=== PATIENT | male | born 1935 | race Caucasian/White ===

== ENCOUNTER 2019-02-12 04:57 | Inpatient (IN) | payer MEDICARE, OTHER, MEDICAID ==
[2019-02-12 05:29] LABS: ADD MAN DIFF? NO
[2019-02-12 05:31] LABS: WHITE BLOOD COUNT 8.2 10^3/ul (4.8-10.8)
[2019-02-12 05:31] LABS: BASOPHILS % 0.4 % (0.0-2.0); EOSINOPHILS # 0.1 10^3/ul (0.0-0.5); EOSINOPHILS % 1.1 % (0.0-7.0); HEMOGLOBIN 10.9 g/dl (14.0-18.0); LYMPHOCYTES # 1.4 10^3/ul (0.8-2.9); LYMPHOCYTES % 17.3 % (15.0-51.0); MEAN CORPUSCULAR HEMOGLOBIN 31.1 pg (29.0-33.0); MEAN CORPUSCULAR HGB CONC 32.1 g/dl (32.0-37.0); MEAN CORPUSCULAR VOLUME 97.1 fl (82.0-101.0); MEAN PLATELET VOLUME 10.3 fl (7.4-10.4); MONOCYTE # 0.9 10^3/ul (0.3-0.9); MONOCYTES % 11.4 % (0.0-11.0); NEUTROPHIL # 5.7 10^3/ul (1.6-7.5); NEUTROPHILS % 69.4 % (39.0-77.0); PLATELET COUNT 196 10^3/UL (140-415); RED CELL DISTRIBUTION WIDTH 13.2 % (11.5-14.5)
[2019-02-12 05:41] LABS: URINE BLOOD (Dip) POC 2+ (NEGATIVE); URINE GLUCOSE (Dip) POC Negative (NEGATIVE); URINE KETONES (Dip) POC Negative (NEGATIVE); URINE LEUKOCYTE EST (Dip) POC 1+ (NEGATIVE); URINE NITRITE (Dip) POC Negative (NEGATIVE); URINE TOTAL PROTEIN POC Negative (NEGATIVE)
[2019-02-12] MEDS: FUROSEMIDE 40 MG INJ IV (05:44)
[2019-02-12 05:50] LABS: INR 1.32; PROTIME 16.5 Sec (11.9-14.9); PT RATIO 1.3
[2019-02-12] MEDS: ALBUTEROL 0.083% (NEB) 2.5 MG/3 ML AMP INH (05:55)
[2019-02-12] MEDS: IPRATROPIUM (NEB) 0.5 MG/2.5 ML AMP INH (05:56)
[2019-02-12 05:57] LABS: ALANINE AMINOTRANSFERASE 32 IU/L (13-69); ALBUMIN/GLOBULIN RATIO 1.33; ALKALINE PHOSPHATASE 69 IU/L (42-121); ANION GAP 9 (5-13); ASPARTATE AMINO TRANSFERASE 33 IU/L (15-46); BILIRUBIN,INDIRECT 0.4 mg/dl (0-1.1); BILIRUBIN,TOTAL 0.4 mg/dl (0.2-1.3); BLOOD UREA NITROGEN 32 mg/dl (7-20); CALCIUM 8.6 mg/dl (8.4-10.2); CARBON DIOXIDE 24 mmol/L (21-31); CHLORIDE 105 mmol/L (97-110); CREATININE 2.14 mg/dl (0.61-1.24); GLUCOSE 108 mg/dl (70-220); POTASSIUM 4.5 mmol/L (3.5-5.1); SODIUM 138 mmol/L (135-144)
[2019-02-12] MEDS ORDERED: ACETAMINOPHEN 325 MG TAB PO ×2 (06:00→08:30)
[2019-02-12] MEDS ORDERED: NACL 0.9% 3 ML SYG IV (06:00)
[2019-02-12] MEDS: PANTOPRAZOLE (EC) 40 MG TAB PO (06:00)
[2019-02-12 06:09] LABS: B-TYPE NATRIURETIC PEPTIDE 1650 PG/ML (0-450); TROPONIN-I < 0.012 ng/ml (0.000-0.120)
[2019-02-12] MEDS: ALBUTEROL 0.083% (NEB) 2.5 MG/3 ML AMP HHN (07:31)
[2019-02-12] MEDS: ONDANSETRON 4 MG INJ IV (07:43)
[2019-02-12 08:01] LABS: LACTIC ACID 3.5 mmol/L (0.5-2.0)
[2019-02-12] MEDS ORDERED: ACETAMINOPHEN 650 MG SUPP PR (08:29)
[2019-02-12] MEDS ORDERED: ACETAMINOPHEN 325 MG SUPP PR (08:29)
[2019-02-12] MEDS: ACETAMINOPHEN 650 MG SUPP PR (08:40)
[2019-02-12] MEDS: ACETAMINOPHEN 325 MG SUPP PR (08:40)
[2019-02-12] MEDS: CEFTRIAXONE 1 GM/50 ML (PMX) 50 ML IVPB (08:51)
[2019-02-12] MEDS: AZITHROMYCIN 500MG/NS (PMX) 250 ML IVPB (09:03)
[2019-02-12] MEDS: ALBUTEROL/IPRATROPIUM (NEB) 3 ML AMP HHN ×4 (09:13→19:56)
[2019-02-12 11:33] LABS: LACTIC ACID 4.2 mmol/L (0.5-2.0)
[2019-02-12] MEDS: SOD CHLORIDE 0.9% 1,000 ML IV ×2 (12:06→21:29)
[2019-02-12] MEDS: APIXABAN 5 MG TABLET PO ×2 (12:12→21:29)
[2019-02-12] MEDS: AMIODARONE 200 MG TAB PO (12:12)
[2019-02-12] MEDS: CEFEPIME 2GM/50 ML (PMX) 50 ML IVPB (13:18)
[2019-02-12] MEDS: METHYLPREDNISOLONE 125 MG INJ IV ×2 (13:18→21:29)
[2019-02-12] MEDS: ALPRAZOLAM 0.5 MG TAB PO (21:29)
[2019-02-13] MEDS: ALBUTEROL/IPRATROPIUM (NEB) 3 ML AMP HHN ×7 (01:03→23:15)
[2019-02-13] MEDS: SOD CHLORIDE 0.9% 1,000 ML IV ×2 (02:00→11:15)
[2019-02-13] MEDS: PANTOPRAZOLE (EC) 40 MG TAB PO (05:08)
[2019-02-13] MEDS: METHYLPREDNISOLONE 125 MG INJ IV ×2 (05:09→14:12)
[2019-02-13 06:53] LABS: LACTIC ACID 2.1 mmol/L (0.5-2.0)
[2019-02-13 07:47] LABS: HEMOGLOBIN A1C 5.3 % (0-5.9)
[2019-02-13] MEDS: ESCITALOPRAM 10 MG TAB PO (08:51)
[2019-02-13] MEDS: AZITHROMYCIN 500MG/NS (PMX) 250 ML IVPB (08:51)
[2019-02-13] MEDS: APIXABAN 5 MG TABLET PO ×2 (08:52→21:36)
[2019-02-13] MEDS: AMIODARONE 200 MG TAB PO (08:52)
[2019-02-13] MEDS: CEFEPIME 2GM/50 ML (PMX) 50 ML IVPB (11:14)
[2019-02-13 15:54] LABS: WHITE BLOOD COUNT 18.9 10^3/ul (4.8-10.8)
[2019-02-13 15:54] LABS: ABNORMAL IP MESSAGE 1; HEMATOCRIT 34.4 % (42.0-52.0); HEMOGLOBIN 11.2 g/dl (14.0-18.0); MEAN CORPUSCULAR HEMOGLOBIN 31.6 pg (29.0-33.0); MEAN CORPUSCULAR HGB CONC 32.6 g/dl (32.0-37.0); MEAN CORPUSCULAR VOLUME 97.2 fl (82.0-101.0); MEAN PLATELET VOLUME 11.7 fl (7.4-10.4); PLATELET COUNT 184 10^3/UL (140-415); POSITIVE DIFF @See below; RED BLOOD COUNT 3.54 10^6/ul (4.70-6.10); RED CELL DISTRIBUTION WIDTH 13.9 % (11.5-14.5)
[2019-02-13 15:58] LABS: ADD MAN DIFF? YES
[2019-02-13 16:20] LABS: ANION GAP 11 (5-13); BLOOD UREA NITROGEN 43 mg/dl (7-20); CALCIUM 8.1 mg/dl (8.4-10.2); CARBON DIOXIDE 21 mmol/L (21-31); CHLORIDE 108 mmol/L (97-110); CREATININE 1.99 mg/dl (0.61-1.24); GLUCOSE 162 mg/dl (70-220); SODIUM 140 mmol/L (135-144)
[2019-02-13 17:52] LABS: BAND NEUTROPHILS #M 3.7 10^3/ul (0.0-0.6); BAND NEUTROPHILS % (M) 20 % (0-4); LYMPHOCYTES # 0.2 10^3/ul (0.8-2.9); LYMPHOCYTES #M 0.1 10^3/ul (0.8-2.9); LYMPHOCYTES % (M) 1 % (15-51); METAMYELOCYTES #M 0.1 10^3/ul (0.0-0.0); METAMYELOCYTES %M 1 % (0-0); MONOCYTE # 0.4 10^3/ul (0.3-0.9); MONOCYTE #M 0.3 10^3/ul (0.3-0.9); MONOCYTES % (M) 2 % (0-11); SEGMENTED NEUTROPHILS (M) % 76 % (39-77)
[2019-02-13 17:53] LABS: BURR CELLS 1+; SEG NEUT #M 15.1 10^3/ul (1.7-7.5)
[2019-02-13 17:54] LABS: PLATELET ESTIMATE NORMAL
[2019-02-13 18:34] LABS: POTASSIUM 4.4 mmol/L (3.5-5.1)
[2019-02-13] MEDS: FUROSEMIDE 40 MG INJ IV (21:35)
[2019-02-13] MEDS: METHYLPREDNISOLONE 40 MG INJ IV (21:36)
[2019-02-13] MEDS: ALPRAZOLAM 0.5 MG TAB PO (21:36)
[2019-02-13] MEDS: DOCUSATE SODIUM 100 MG CAP PO (21:37)
[2019-02-14] MEDS: ALBUTEROL/IPRATROPIUM (NEB) 3 ML AMP HHN ×7 (01:00→20:45)
[2019-02-14 04:59] LABS: AADO2 Arterial 102.8 mmHg (7.0-24.0); Allen Test ACCEPTAB; Arterial Base Excess -7.3 mmol/L (-3.0-3); Arterial Blood Gas Oxygen Sat 88.7 mmHG (95.0-100.0); Arterial COHb 0.7 % (0.0-3.0); Arterial HCO3 21.7 mmol/L (22.0-26.0); Arterial MetHb 0.1 % (0.0-1.5); MODE NASAL CANNULA; Site Right Radial
[2019-02-14] MEDS: ONDANSETRON 4 MG INJ IV (05:02)
[2019-02-14] MEDS: LORAZEPAM 2 MG INJ IV (05:18)
[2019-02-14] MEDS: METHYLPREDNISOLONE 40 MG INJ IV ×3 (05:22→22:11)
[2019-02-14] MEDS: FUROSEMIDE 20 MG INJ IV (05:26)
[2019-02-14] MEDS: PANTOPRAZOLE (EC) 40 MG TAB PO (05:32)
[2019-02-14 06:08] LABS: LACTIC ACID 1.3 mmol/L (0.5-2.0)
[2019-02-14 06:10] LABS: ABNORMAL IP MESSAGE 1; HEMATOCRIT 37.3 % (42.0-52.0); HEMOGLOBIN 11.9 g/dl (14.0-18.0); MEAN CORPUSCULAR HEMOGLOBIN 31.1 pg (29.0-33.0); MEAN CORPUSCULAR HGB CONC 31.9 g/dl (32.0-37.0); MEAN CORPUSCULAR VOLUME 97.4 fl (82.0-101.0); MEAN PLATELET VOLUME 11.1 fl (7.4-10.4); PLATELET COUNT 258 10^3/UL (140-415); POSITIVE DIFF @See below; RED BLOOD COUNT 3.83 10^6/ul (4.70-6.10); RED CELL DISTRIBUTION WIDTH 14.1 % (11.5-14.5)
[2019-02-14 06:10] LABS: WHITE BLOOD COUNT 22.2 10^3/ul (4.8-10.8)
[2019-02-14 06:19] LABS: ADD MAN DIFF? YES
[2019-02-14 06:27] LABS: IRON 44 ug/dl (35-150); RETICULOCYTE COUNT # 0.072 X10^6 (0.020-0.110); RETICULOCYTE COUNT % 1.9 % (0.5-1.5)
[2019-02-14 06:27] LABS: RETICULOCYTE RBC 3.72
[2019-02-14 06:37] LABS: % IRON SATURATION 16 % SAT (22-52); TOTAL IRON BINDING CAPACITY 279 ug/dl (241-421)
[2019-02-14 06:49] LABS: ALANINE AMINOTRANSFERASE 187 IU/L (13-69); ALBUMIN 3.8 g/dl (3.3-4.9); ALBUMIN/GLOBULIN RATIO 1.11; ALKALINE PHOSPHATASE 60 IU/L (42-121); ANION GAP 10 (5-13); ASPARTATE AMINO TRANSFERASE 147 IU/L (15-46); BILIRUBIN,INDIRECT 0.2 mg/dl (0-1.1); BILIRUBIN,TOTAL 0.2 mg/dl (0.2-1.3); BLOOD UREA NITROGEN 50 mg/dl (7-20); CALCIUM 8.1 mg/dl (8.4-10.2); CARBON DIOXIDE 23 mmol/L (21-31); CHLORIDE 108 mmol/L (97-110); CREATININE 2.41 mg/dl (0.61-1.24); GLUCOSE 169 mg/dl (70-220); SODIUM 141 mmol/L (135-144); TOTAL PROTEIN 7.2 g/dl (6.1-8.1)
[2019-02-14 06:58] LABS: PHOSPHORUS 5.8 mg/dl (2.5-4.9)
[2019-02-14 06:58] LABS: MAGNESIUM 2.1 mg/dl (1.7-2.5)
[2019-02-14 07:43] LABS: BAND NEUTROPHILS #M 4.4 10^3/ul (0.0-0.6); BAND NEUTROPHILS % (M) 20 % (0-4); BURR CELLS 2+ (0-0); GIANT THROMBO% (M) 1 % (0-0); LYMPHOCYTES #M 0.2 10^3/ul (0.8-2.9); LYMPHOCYTES % (M) 1 % (15-51); MONOCYTE #M 0.4 10^3/ul (0.3-0.9); MONOCYTES % (M) 2 % (0-11); PLATELET ESTIMATE NORMAL; POIKILOCYTOSIS 2+ (0-0); SEG NEUT #M 18.1 10^3/ul (1.6-7.5); SEGMENTED NEUTROPHILS (M) % 77 % (39-77); SMUDGE%M 1 % (0-0)
[2019-02-14 07:44] LABS: Allen Test ACCEPTAB; Arterial Base Excess -4.1 mmol/L (-3.0-3); Arterial Blood Gas Oxygen Sat 97.5 mmHG (95.0-100.0); Arterial COHb 0.3 % (0.0-3.0); Arterial HCO3 22.8 mmol/L (22.0-26.0); Arterial MetHb 0.2 % (0.0-1.5); Arterial pCO2 49.7 mmhg (35-45); Blood Gas IEPAP 15/5; Blood Gas PS 10; MODE MASK - BIPAP; Site Left Radial
[2019-02-14 08:04] LABS: FOLATE 11.7 ng/ml (2.8-20.0)
[2019-02-14] MEDS: ESCITALOPRAM 10 MG TAB PO (09:52)
[2019-02-14] MEDS: APIXABAN 5 MG TABLET PO ×2 (09:52→20:48)
[2019-02-14] MEDS: AMIODARONE 200 MG TAB PO (09:53)
[2019-02-14 11:17] LABS: PROSTATE SPECIFIC ANTIGEN 1.5 ng/ml (0.0-4.0)
[2019-02-14] MEDS ORDERED: VANCOMYCIN IV PER PHARMACY XX (11:30)
[2019-02-14] MEDS: AZITHROMYCIN 500MG/NS (PMX) 250 ML IVPB (12:01)
[2019-02-14] MEDS: DOCUSATE SODIUM 100 MG CAP PO ×2 (13:30→20:48)
[2019-02-14] MEDS: CEFEPIME 2GM/50 ML (PMX) 50 ML IVPB (14:00)
[2019-02-14] MEDS: VANCOMYCIN HCL 1.5 GM in SOD CHLORIDE 0.9% 250 ML IVPB (15:29)
[2019-02-14] MEDS ORDERED: NORepinephrine 8MG/250 ML (PMX 0 ML (18:47)
[2019-02-14] MEDS: ALPRAZOLAM 0.5 MG TAB PO (20:47)
[2019-02-14 22:48] LABS: ADD UMIC YES; UR ASCORBIC ACID NEGATIVE (NEGATIVE); UR BACTERIA FEW /HPF (NONE SEEN); UR BILIRUBIN (Dip) NEGATIVE (NEGATIVE); UR BLOOD (Dip) 3+ mg/dL (NEGATIVE); UR CLARITY SLIGHTLY CLOUDY (CLEAR); UR COLOR YELLOW (YELLOW); UR GLUCOSE (Dip) NEGATIVE (NEGATIVE); UR KETONES (Dip) NEGATIVE (NEGATIVE); UR LEUKOCYTE ESTERASE (Dip) 2+ Leu/ul (NEGATIVE); UR NITRITE (Dip) NEGATIVE (NEGATIVE); UR RBC > 182 /HPF (0-5); UR SPECIFIC GRAVITY (Dip) 1.016 (1.003-1.030); UR TOTAL PROTEIN (Dip) 1+ mg/dl (NEGATIVE); UR UROBILINOGEN (Dip) NEGATIVE (NEGATIVE); UR WBC 49 /HPF (0-5)
[2019-02-14 22:51] LABS: CREATININE,URINE RANDOM 91.22 mg/dl (20-370)
[2019-02-14 23:08] LABS: SODIUM,URINE RANDOM < 13 mmol/L (30-90)
[2019-02-15] MEDS: ALBUTEROL/IPRATROPIUM (NEB) 3 ML AMP HHN ×6 (01:20→20:33)
[2019-02-15] MEDS: METHYLPREDNISOLONE 40 MG INJ IV ×3 (05:15→23:06)
[2019-02-15] MEDS: PANTOPRAZOLE (EC) 40 MG TAB PO (05:15)
[2019-02-15 05:52] LABS: WHITE BLOOD COUNT 14.3 10^3/ul (4.8-10.8)
[2019-02-15 05:52] LABS: ABNORMAL IP MESSAGE 1; HEMATOCRIT 34.7 % (42.0-52.0); HEMOGLOBIN 11.2 g/dl (14.0-18.0); MEAN CORPUSCULAR HEMOGLOBIN 31.5 pg (29.0-33.0); MEAN CORPUSCULAR HGB CONC 32.3 g/dl (32.0-37.0); MEAN CORPUSCULAR VOLUME 97.5 fl (82.0-101.0); MEAN PLATELET VOLUME 11.5 fl (7.4-10.4); PLATELET COUNT 213 10^3/UL (140-415); POSITIVE DIFF @See below; RED BLOOD COUNT 3.56 10^6/ul (4.70-6.10); RED CELL DISTRIBUTION WIDTH 14.1 % (11.5-14.5)
[2019-02-15 05:57] LABS: ADD MAN DIFF? YES
[2019-02-15 06:23] LABS: ANION GAP 7 (5-13); BLOOD UREA NITROGEN 57 mg/dl (7-20); CARBON DIOXIDE 25 mmol/L (21-31); CHLORIDE 112 mmol/L (97-110); GLUCOSE 125 mg/dl (70-220); POTASSIUM 4.5 mmol/L (3.5-5.1); SODIUM 144 mmol/L (135-144)
[2019-02-15 06:24] LABS: PHOSPHORUS 4.2 mg/dl (2.5-4.9)
[2019-02-15 06:24] LABS: MAGNESIUM 2.4 mg/dl (1.7-2.5)
[2019-02-15 08:09] LABS: AADO2 Arterial 130.3 mmHg (7.0-24.0); Allen Test ACCEPTAB; Arterial Blood Gas Oxygen Sat 92.1 mmHG (95.0-100.0); Arterial COHb 0.6 % (0.0-3.0); Arterial Fraction of Oxyhgb 91.5 % (93.0-99.0); Arterial HCO3 22.9 mmol/L (22.0-26.0); Arterial MetHb 0 % (0.0-1.5); Arterial pCO2 44.7 mmhg (35-45); Blood Gas IEPAP 15/5; Blood Gas PS 10; MODE MASK - BIPAP; Site Right Radial
[2019-02-15] MEDS: AZITHROMYCIN 500MG/NS (PMX) 250 ML IVPB (08:41)
[2019-02-15] MEDS: DOCUSATE SODIUM 100 MG CAP PO ×2 (08:42→21:18)
[2019-02-15] MEDS: APIXABAN 5 MG TABLET PO ×2 (08:43→21:18)
[2019-02-15] MEDS: ESCITALOPRAM 10 MG TAB PO (08:43)
[2019-02-15] MEDS: AMIODARONE 200 MG TAB PO (08:44)
[2019-02-15 09:22] LABS: BAND NEUTROPHILS #M 1.4 10^3/ul (0.0-0.6); BAND NEUTROPHILS % (M) 10 % (0-4); BURR CELLS 2+ (0-0); GIANT THROMBO% (M) 1 % (0-0); MONOCYTE #M 0.2 10^3/ul (0.3-0.9); MONOCYTES % (M) 2 % (0-11); OVALOCYTES 1+ (0-0); PLATELET ESTIMATE NORMAL; POIKILOCYTOSIS 3+ (0-0); SEG NEUT #M 12.8 10^3/ul (1.6-7.5); SEGMENTED NEUTROPHILS (M) % 88 % (39-77); SMUDGE%M 1 % (0-0)
[2019-02-15] MEDS: CEFEPIME 2GM/50 ML (PMX) 50 ML IVPB (13:27)
[2019-02-15] MEDS: ALPRAZOLAM 0.5 MG TAB PO (21:19)
[2019-02-16] MEDS: ALBUTEROL/IPRATROPIUM (NEB) 3 ML AMP HHN ×6 (01:11→20:05)
[2019-02-16] MEDS: VANCOMYCIN HCL 1.25 GM in SOD CHLORIDE 0.9% 250 ML IVPB (01:46)
[2019-02-16 05:09] LABS: ADD MAN DIFF? NO
[2019-02-16 05:14] LABS: ABNORMAL IP MESSAGE 1; BASOPHILS % 0.1 % (0.0-2.0); HEMOGLOBIN 10.7 g/dl (14.0-18.0); LYMPHOCYTES # 0.3 10^3/ul (0.8-2.9); LYMPHOCYTES % 2.9 % (15.0-51.0); MEAN CORPUSCULAR HEMOGLOBIN 31.8 pg (29.0-33.0); MEAN CORPUSCULAR HGB CONC 32.4 g/dl (32.0-37.0); MEAN CORPUSCULAR VOLUME 98.2 fl (82.0-101.0); MEAN PLATELET VOLUME 11.2 fl (7.4-10.4); MONOCYTE # 0.5 10^3/ul (0.3-0.9); MONOCYTES % 4.5 % (0.0-11.0); NEUTROPHIL # 10.7 10^3/ul (1.6-7.5); NEUTROPHILS % 92.2 % (39.0-77.0); PLATELET COUNT 181 10^3/UL (140-415); POSITIVE DIFF @See below; RED BLOOD COUNT 3.36 10^6/ul (4.70-6.10); RED CELL DISTRIBUTION WIDTH 14.3 % (11.5-14.5)
[2019-02-16 05:14] LABS: WHITE BLOOD COUNT 11.7 10^3/ul (4.8-10.8)
[2019-02-16] MEDS: MAGNESIUM HYDROXIDE 30ML CUP PO (05:16)
[2019-02-16] MEDS: PANTOPRAZOLE (EC) 40 MG TAB PO (05:16)
[2019-02-16] MEDS: METHYLPREDNISOLONE 40 MG INJ IV ×3 (05:17→21:25)
[2019-02-16 06:07] LABS: ANION GAP 5 (5-13); BLOOD UREA NITROGEN 67 mg/dl (7-20); CALCIUM 8.1 mg/dl (8.4-10.2); CARBON DIOXIDE 26 mmol/L (21-31); CHLORIDE 113 mmol/L (97-110); CREATININE 2.18 mg/dl (0.61-1.24); GLUCOSE 133 mg/dl (70-220); MAGNESIUM 2.7 mg/dl (1.7-2.5); PHOSPHORUS 3.5 mg/dl (2.5-4.9); POTASSIUM 4.9 mmol/L (3.5-5.1); SODIUM 144 mmol/L (135-144)
[2019-02-16 07:13] LABS: AADO2 Arterial 165.7 mmHg (7.0-24.0); Allen Test ACCEPTAB; Arterial Base Excess -0.8 mmol/L (-3.0-3); Arterial Blood Gas Oxygen Sat 92.3 mmHG (95.0-100.0); Arterial COHb 0.3 % (0.0-3.0); Arterial Fraction of Oxyhgb 91.8 % (93.0-99.0); Arterial MetHb 0.2 % (0.0-1.5); Arterial pCO2 45.6 mmhg (35-45); Blood Gas IEPAP 15/5; Blood Gas PS 10; MODE MASK - BIPAP; Site Right Radial
[2019-02-16] MEDS: FUROSEMIDE 40 MG INJ IV (09:08)
[2019-02-16] MEDS: APIXABAN 5 MG TABLET PO ×2 (09:13→20:21)
[2019-02-16] MEDS: DOCUSATE SODIUM 100 MG CAP PO ×2 (09:13→20:21)
[2019-02-16] MEDS: ESCITALOPRAM 10 MG TAB PO (09:13)
[2019-02-16] MEDS: AZITHROMYCIN 500MG/NS (PMX) 250 ML IVPB (09:13)
[2019-02-16] MEDS: AMIODARONE 200 MG TAB PO (09:13)
[2019-02-16 14:07] LABS: CREATININE, RANDOM URINE 91 mg/dL (20-320); MICROALBUMIN 14.3 mg/dL; MICROALBUMIN/CREATININE RATIO 157 (<30)
[2019-02-16] MEDS: CEFEPIME 2GM/50 ML (PMX) 50 ML IVPB (15:08)
[2019-02-16] MEDS: ALPRAZOLAM 0.5 MG TAB PO (20:21)
[2019-02-16] MEDS: MAGNESIUM CITRATE 300 ML BTL PO (20:40)
[2019-02-17] MEDS: ALBUTEROL/IPRATROPIUM (NEB) 3 ML AMP HHN ×4 (01:25→12:27)
[2019-02-17 05:35] LABS: ADD MAN DIFF? NO
[2019-02-17] MEDS: METHYLPREDNISOLONE 40 MG INJ IV ×3 (05:45→21:23)
[2019-02-17] MEDS: PANTOPRAZOLE (EC) 40 MG TAB PO (05:45)
[2019-02-17 05:58] LABS: ABNORMAL IP MESSAGE 1; HEMATOCRIT 33.9 % (42.0-52.0); HEMOGLOBIN 10.9 g/dl (14.0-18.0); LYMPHOCYTES # 0.3 10^3/ul (0.8-2.9); LYMPHOCYTES % 2.8 % (15.0-51.0); MEAN CORPUSCULAR HEMOGLOBIN 30.9 pg (29.0-33.0); MEAN CORPUSCULAR HGB CONC 32.2 g/dl (32.0-37.0); MEAN PLATELET VOLUME 11.4 fl (7.4-10.4); MONOCYTE # 0.5 10^3/ul (0.3-0.9); MONOCYTES % 5.3 % (0.0-11.0); NEUTROPHIL # 9.2 10^3/ul (1.6-7.5); NEUTROPHILS % 91.1 % (39.0-77.0); PLATELET COUNT 184 10^3/UL (140-415); POSITIVE DIFF @See below; RED BLOOD COUNT 3.53 10^6/ul (4.70-6.10); RED CELL DISTRIBUTION WIDTH 14.3 % (11.5-14.5)
[2019-02-17 05:58] LABS: WHITE BLOOD COUNT 10.1 10^3/ul (4.8-10.8)
[2019-02-17 06:14] LABS: ANION GAP 4 (5-13); BLOOD UREA NITROGEN 74 mg/dl (7-20); CALCIUM 8.4 mg/dl (8.4-10.2); CARBON DIOXIDE 28 mmol/L (21-31); CHLORIDE 114 mmol/L (97-110); CREATININE 2.25 mg/dl (0.61-1.24); GLUCOSE 153 mg/dl (70-220); MAGNESIUM 3.5 mg/dl (1.7-2.5); PHOSPHORUS 3.4 mg/dl (2.5-4.9); POTASSIUM 4.3 mmol/L (3.5-5.1); SODIUM 146 mmol/L (135-144)
[2019-02-17 07:40] LABS: AADO2 Arterial 161.8 mmHg (7.0-24.0); Allen Test ACCEPTAB; Arterial Blood Gas Oxygen Sat 92.3 mmHG (95.0-100.0); Arterial COHb 0.3 % (0.0-3.0); Arterial Fraction of Oxyhgb 91.8 % (93.0-99.0); Arterial HCO3 28.6 mmol/L (22.0-26.0); Arterial MetHb 0.2 % (0.0-1.5); Blood Gas IEPAP 15/5; Blood Gas PS 10; MODE MASK - BIPAP; Site Right Radial
[2019-02-17] MEDS: ESCITALOPRAM 10 MG TAB PO (09:00)
[2019-02-17] MEDS: APIXABAN 5 MG TABLET PO (09:00)
[2019-02-17] MEDS: AMIODARONE 200 MG TAB PO (09:00)
[2019-02-17] MEDS: DOCUSATE SODIUM 100 MG CAP PO ×2 (09:00→21:00)
[2019-02-17] MEDS: AZITHROMYCIN 500MG/NS (PMX) 250 ML IVPB (09:58)
[2019-02-17] MEDS: DEXTROSE 5% 1,000 ML IV (09:58)
[2019-02-17] MEDS ORDERED: BISACODYL 10 MG SUPP PR (12:00)
[2019-02-17] MEDS: BISACODYL 10 MG SUPP PR (12:56)
[2019-02-17] MEDS: CEFEPIME 2GM/50 ML (PMX) 50 ML IVPB (12:56)
[2019-02-17] MEDS: SOD CHLORIDE 0.9% 500 ML IV (13:46)
[2019-02-17 14:00] LABS: AADO2 Arterial 245.1 mmHg (7.0-24.0); Allen Test ACCEPTAB; Arterial COHb 0.3 % (0.0-3.0); Arterial Fraction of Oxyhgb 88.6 % (93.0-99.0); Arterial HCO3 26.7 mmol/L (22.0-26.0); Arterial MetHb 0.1 % (0.0-1.5); Arterial pCO2 46.9 mmhg (35-45); Blood Gas IEPAP 15/5; Blood Gas PS 10; MODE MASK - BIPAP; Site Right Radial
[2019-02-17] MEDS ORDERED: FAMOTIDINE 20 MG INJ IV (14:30)
[2019-02-17] MEDS: HEPARIN 5,000 UNIT/1 ML VIAL SC ×2 (14:38→21:28)
[2019-02-17] MEDS: LORAZEPAM 2 MG INJ IV (14:46)
[2019-02-17] MEDS: LEVALBUTEROL (NEB) 0.63 MG/3 ML AMP HHN ×2 (18:04→20:30)
[2019-02-17] MEDS: ALPRAZOLAM 0.5 MG TAB PO (21:00)
[2019-02-17] MEDS: MEROPENEM 500MG/50 ML (PMX) 50 ML IVPB (21:23)
[2019-02-18] MEDS: hydrALAzine 20 MG INJ IV ×2 (00:42→05:24)
[2019-02-18] MEDS: LEVALBUTEROL (NEB) 0.63 MG/3 ML AMP HHN ×6 (01:06→20:09)
[2019-02-18 01:45] LABS: VANCOMYCIN,TROUGH 8.7 ug/ml (10.0-20.0)
[2019-02-18] MEDS: VANCOMYCIN HCL 1.5 GM in SOD CHLORIDE 0.9% 250 ML IVPB (02:46)
[2019-02-18] MEDS: DEXTROSE 5% 1,000 ML IV ×2 (04:00→05:30)
[2019-02-18 05:18] LABS: ADD MAN DIFF? NO
[2019-02-18 05:21] LABS: ABNORMAL IP MESSAGE 1; HEMATOCRIT 38.2 % (42.0-52.0); HEMOGLOBIN 12.2 g/dl (14.0-18.0); LYMPHOCYTES # 0.3 10^3/ul (0.8-2.9); LYMPHOCYTES % 2.6 % (15.0-51.0); MEAN CORPUSCULAR HGB CONC 31.9 g/dl (32.0-37.0); MEAN CORPUSCULAR VOLUME 97.2 fl (82.0-101.0); MEAN PLATELET VOLUME 10.7 fl (7.4-10.4); MONOCYTE # 0.8 10^3/ul (0.3-0.9); MONOCYTES % 6.9 % (0.0-11.0); NEUTROPHIL # 9.9 10^3/ul (1.6-7.5); NEUTROPHILS % 89.2 % (39.0-77.0); PLATELET COUNT 217 10^3/UL (140-415); POSITIVE DIFF @See below; RED BLOOD COUNT 3.93 10^6/ul (4.70-6.10); RED CELL DISTRIBUTION WIDTH 14.3 % (11.5-14.5)
[2019-02-18 05:21] LABS: WHITE BLOOD COUNT 11.1 10^3/ul (4.8-10.8)
[2019-02-18] MEDS: FAMOTIDINE 20 MG INJ IV (05:22)
[2019-02-18] MEDS: METHYLPREDNISOLONE 40 MG INJ IV ×3 (05:29→21:13)
[2019-02-18 05:53] LABS: ANION GAP 5 (5-13); BLOOD UREA NITROGEN 76 mg/dl (7-20); CALCIUM 8.5 mg/dl (8.4-10.2); CARBON DIOXIDE 29 mmol/L (21-31); CHLORIDE 114 mmol/L (97-110); CREATININE 1.94 mg/dl (0.61-1.24); GLUCOSE 142 mg/dl (70-220); MAGNESIUM 3.5 mg/dl (1.7-2.5); PHOSPHORUS 3.4 mg/dl (2.5-4.9); POTASSIUM 4.7 mmol/L (3.5-5.1); SODIUM 148 mmol/L (135-144)
[2019-02-18] MEDS ORDERED: PANTOPRAZOLE 40 MG INJ IV (06:00)
[2019-02-18] MEDS: LORAZEPAM 2 MG INJ IV (06:32)
[2019-02-18] MEDS: AZITHROMYCIN 500MG/NS (PMX) 250 ML IVPB (08:31)
[2019-02-18] MEDS: ESCITALOPRAM 10 MG TAB PO (08:31)
[2019-02-18] MEDS: DOCUSATE SODIUM 100 MG CAP PO ×2 (08:31→21:00)
[2019-02-18] MEDS: AMIODARONE 200 MG TAB PO (08:31)
[2019-02-18] MEDS: MEROPENEM 500MG/50 ML (PMX) 50 ML IVPB ×2 (08:31→21:13)
[2019-02-18] MEDS: HEPARIN 5,000 UNIT/1 ML VIAL SC ×2 (08:36→21:17)
[2019-02-18] MEDS: FUROSEMIDE 20 MG INJ IV (09:48)
[2019-02-18] MEDS: ALPRAZOLAM 0.5 MG TAB PO (21:00)
[2019-02-19] MEDS: LORAZEPAM 2 MG INJ IV ×3 (00:36→16:30)
[2019-02-19] MEDS: LEVALBUTEROL (NEB) 0.63 MG/3 ML AMP HHN ×6 (01:49→20:57)
[2019-02-19] MEDS: METHYLPREDNISOLONE 40 MG INJ IV ×3 (05:02→22:35)
[2019-02-19] MEDS: FAMOTIDINE 20 MG INJ IV (05:02)
[2019-02-19 05:36] LABS: ADD MAN DIFF? NO
[2019-02-19 05:39] LABS: ABNORMAL IP MESSAGE 1; BASOPHILS % 0.1 % (0.0-2.0); HEMATOCRIT 34.9 % (42.0-52.0); HEMOGLOBIN 11.2 g/dl (14.0-18.0); LYMPHOCYTES # 0.3 10^3/ul (0.8-2.9); LYMPHOCYTES % 3.4 % (15.0-51.0); MEAN CORPUSCULAR HEMOGLOBIN 30.9 pg (29.0-33.0); MEAN CORPUSCULAR HGB CONC 32.1 g/dl (32.0-37.0); MEAN CORPUSCULAR VOLUME 96.4 fl (82.0-101.0); MEAN PLATELET VOLUME 11.2 fl (7.4-10.4); MONOCYTE # 0.5 10^3/ul (0.3-0.9); MONOCYTES % 6.3 % (0.0-11.0); NEUTROPHIL # 6.6 10^3/ul (1.6-7.5); NEUTROPHILS % 88.7 % (39.0-77.0); PLATELET COUNT 190 10^3/UL (140-415); POSITIVE DIFF @See below; RED BLOOD COUNT 3.62 10^6/ul (4.70-6.10); RED CELL DISTRIBUTION WIDTH 14.2 % (11.5-14.5)
[2019-02-19 05:39] LABS: WHITE BLOOD COUNT 7.4 10^3/ul (4.8-10.8)
[2019-02-19 06:13] LABS: ANION GAP 4 (5-13); BLOOD UREA NITROGEN 78 mg/dl (7-20); CALCIUM 8.2 mg/dl (8.4-10.2); CARBON DIOXIDE 30 mmol/L (21-31); CHLORIDE 112 mmol/L (97-110); GLUCOSE 172 mg/dl (70-220); MAGNESIUM 3.6 mg/dl (1.7-2.5); PHOSPHORUS 3.5 mg/dl (2.5-4.9); POTASSIUM 4.2 mmol/L (3.5-5.1); SODIUM 146 mmol/L (135-144)
[2019-02-19 07:56] LABS: AADO2 Arterial 240.4 mmHg (7.0-24.0); Allen Test ACCEPTAB; Arterial Base Excess 0.7 mmol/L (-3.0-3); Arterial Blood Gas Oxygen Sat 93.3 mmHG (95.0-100.0); Arterial COHb 0.3 % (0.0-3.0); Arterial Fraction of Oxyhgb 92.8 % (93.0-99.0); Arterial HCO3 25.4 mmol/L (22.0-26.0); Arterial MetHb 0.2 % (0.0-1.5); Arterial pCO2 40.8 mmhg (35-45); Blood Gas IEPAP 20/8; MODE MASK - BIPAP; Site Right Radial
[2019-02-19] MEDS: DOCUSATE SODIUM 100 MG CAP PO ×2 (09:00→21:00)
[2019-02-19] MEDS: AMIODARONE 200 MG TAB PO (09:00)
[2019-02-19] MEDS: ESCITALOPRAM 10 MG TAB PO (09:00)
[2019-02-19] MEDS: MEROPENEM 500MG/50 ML (PMX) 50 ML IVPB (09:25)
[2019-02-19] MEDS: HEPARIN 5,000 UNIT/1 ML VIAL SC ×2 (09:31→21:00)
[2019-02-19] MEDS: hydrALAzine 20 MG INJ IV ×2 (09:32→19:48)
[2019-02-19] MEDS: AZITHROMYCIN 500MG/NS (PMX) 250 ML IVPB (09:59)
[2019-02-19] MEDS: CEFEPIME 1GM/50 ML (PMX) 50 ML IVPB ×2 (11:45→22:35)
[2019-02-19] MEDS: DEXTROSE 5% 1,000 ML IV (11:50)
[2019-02-19] MEDS ORDERED: VANCOMYCIN IV PER PHARMACY XX (13:30)
[2019-02-19] MEDS ORDERED: CEFEPIME 1GM/50 ML (PMX) 50 ML IVPB (14:00)
[2019-02-19] MEDS: CLONIDINE 0.1 MG/24 HR PATCH TRANSDERM (14:32)
[2019-02-19] MEDS: ALPRAZOLAM 0.5 MG TAB PO (21:00)
[2019-02-20] MEDS: LORAZEPAM 2 MG INJ IV
[2019-02-20] MEDS: LEVALBUTEROL (NEB) 0.63 MG/3 ML AMP HHN ×2 (01:16→04:55)
[2019-02-20] MEDS: DEXTROSE 5% 1,000 ML IV ×2 (01:29→17:12)
[2019-02-20] MEDS: VANCOMYCIN HCL 1.5 GM in SOD CHLORIDE 0.9% 250 ML IVPB (01:29)
[2019-02-20 05:25] LABS: ADD MAN DIFF? NO
[2019-02-20 05:33] LABS: ABNORMAL IP MESSAGE 1; BASOPHILS % 0.2 % (0.0-2.0); HEMATOCRIT 38.6 % (42.0-52.0); HEMOGLOBIN 12.2 g/dl (14.0-18.0); LYMPHOCYTES # 0.4 10^3/ul (0.8-2.9); LYMPHOCYTES % 3.1 % (15.0-51.0); MEAN CORPUSCULAR HEMOGLOBIN 30.8 pg (29.0-33.0); MEAN CORPUSCULAR HGB CONC 31.6 g/dl (32.0-37.0); MEAN CORPUSCULAR VOLUME 97.5 fl (82.0-101.0); MEAN PLATELET VOLUME 11.3 fl (7.4-10.4); MONOCYTE # 0.6 10^3/ul (0.3-0.9); MONOCYTES % 4.7 % (0.0-11.0); NEUTROPHILS % 90.7 % (39.0-77.0); PLATELET COUNT 260 10^3/UL (140-415); POSITIVE DIFF @See below; RED BLOOD COUNT 3.96 10^6/ul (4.70-6.10); RED CELL DISTRIBUTION WIDTH 14.3 % (11.5-14.5)
[2019-02-20 05:33] LABS: WHITE BLOOD COUNT 12.2 10^3/ul (4.8-10.8)
[2019-02-20] MEDS: FAMOTIDINE 20 MG INJ IV (05:58)
[2019-02-20] MEDS: METHYLPREDNISOLONE 40 MG INJ IV ×3 (05:58→22:07)
[2019-02-20 06:40] LABS: ANION GAP 5 (5-13); BLOOD UREA NITROGEN 77 mg/dl (7-20); CALCIUM 8.3 mg/dl (8.4-10.2); CARBON DIOXIDE 28 mmol/L (21-31); CHLORIDE 112 mmol/L (97-110); CREATININE 1.83 mg/dl (0.61-1.24); GLUCOSE 142 mg/dl (70-220); MAGNESIUM 3.5 mg/dl (1.7-2.5); PHOSPHORUS 3.5 mg/dl (2.5-4.9); POTASSIUM 4.6 mmol/L (3.5-5.1); SODIUM 145 mmol/L (135-144)
[2019-02-20] MEDS ORDERED: VECURONIUM 10 MG VIAL (07:00)
[2019-02-20] MEDS ORDERED: ETOMIDATE 20 MG INJ (07:00)
[2019-02-20] MEDS: DOCUSATE SODIUM 100 MG CAP PO ×2 (08:20→20:41)
[2019-02-20] MEDS: ESCITALOPRAM 10 MG TAB PO (08:20)
[2019-02-20] MEDS: AMIODARONE 200 MG TAB PO (08:20)
[2019-02-20] MEDS: HEPARIN 5,000 UNIT/1 ML VIAL SC ×2 (08:57→20:48)
[2019-02-20] MEDS ORDERED: PROPOFOL 100 ML (09:18)
[2019-02-20] MEDS: PROPOFOL 100 ML IV ×2 (10:00→18:29)
[2019-02-20] MEDS: CEFEPIME 1GM/50 ML (PMX) 50 ML IVPB (11:47)
[2019-02-20 12:35] LABS: AADO2 Arterial 181.8 mmHg (7.0-24.0); Allen Test ACCEPTAB; Arterial Base Excess -0.3 mmol/L (-3.0-3); Arterial Blood Gas Oxygen Sat 88.3 mmHG (95.0-100.0); Arterial COHb 0.4 % (0.0-3.0); Arterial Fraction of Oxyhgb 87.8 % (93.0-99.0); Arterial HCO3 24.4 mmol/L (22.0-26.0); Arterial MetHb 0.2 % (0.0-1.5); MODE VENT - AC; Site Right Radial
[2019-02-20] MEDS: MEROPENEM 1 GM/50ML(PMX) 50 ML IVPB (17:10)
[2019-02-20] MEDS: DOXYCYCLINE 100 MG in SOD CHLORIDE 0.9% 250 ML IVPB (20:37)
[2019-02-20] MEDS: ALPRAZOLAM 0.5 MG TAB PO (20:41)
[2019-02-21] MEDS: DEXTROSE 5% 1,000 ML IV (00:08)
[2019-02-21] MEDS: PROPOFOL 100 ML IV ×2 (05:02→16:26)
[2019-02-21] MEDS: FAMOTIDINE 20 MG INJ IV (05:39)
[2019-02-21] MEDS: LANSOPRAZOLE 30 MG CAP NGT (05:39)
[2019-02-21] MEDS: MEROPENEM 1 GM/50ML(PMX) 50 ML IVPB ×2 (05:39→17:51)
[2019-02-21] MEDS: METHYLPREDNISOLONE 40 MG INJ IV ×3 (05:39→21:18)
[2019-02-21 07:19] LABS: ADD MAN DIFF? NO
[2019-02-21 07:27] LABS: WHITE BLOOD COUNT 10.7 10^3/ul (4.8-10.8)
[2019-02-21 07:27] LABS: ABNORMAL IP MESSAGE 1; BASOPHILS % 0.1 % (0.0-2.0); HEMATOCRIT 33.6 % (42.0-52.0); HEMOGLOBIN 10.8 g/dl (14.0-18.0); LYMPHOCYTES # 0.3 10^3/ul (0.8-2.9); LYMPHOCYTES % 2.6 % (15.0-51.0); MEAN CORPUSCULAR HGB CONC 32.1 g/dl (32.0-37.0); MEAN CORPUSCULAR VOLUME 96.6 fl (82.0-101.0); MEAN PLATELET VOLUME 11.5 fl (7.4-10.4); MONOCYTE # 0.4 10^3/ul (0.3-0.9); MONOCYTES % 3.6 % (0.0-11.0); NEUTROPHIL # 9.9 10^3/ul (1.6-7.5); NEUTROPHILS % 92.9 % (39.0-77.0); PLATELET COUNT 186 10^3/UL (140-415); POSITIVE DIFF @See below; RED BLOOD COUNT 3.48 10^6/ul (4.70-6.10); RED CELL DISTRIBUTION WIDTH 14.2 % (11.5-14.5)
[2019-02-21 07:48] LABS: ANION GAP 4 (5-13); BLOOD UREA NITROGEN 81 mg/dl (7-20); CALCIUM 7.3 mg/dl (8.4-10.2); CARBON DIOXIDE 25 mmol/L (21-31); CHLORIDE 113 mmol/L (97-110); GLUCOSE 134 mg/dl (70-220); MAGNESIUM 3.2 mg/dl (1.7-2.5); PHOSPHORUS 3.7 mg/dl (2.5-4.9); POTASSIUM 4.3 mmol/L (3.5-5.1); SODIUM 142 mmol/L (135-144)
[2019-02-21] MEDS: DOXYCYCLINE 100 MG in SOD CHLORIDE 0.9% 250 ML IVPB ×2 (08:45→20:56)
[2019-02-21] MEDS: DOCUSATE SODIUM 100 MG CAP PO ×2 (08:45→20:56)
[2019-02-21] MEDS: ESCITALOPRAM 10 MG TAB PO (08:45)
[2019-02-21] MEDS: HEPARIN 5,000 UNIT/1 ML VIAL SC ×2 (08:47→21:00)
[2019-02-21] MEDS: AMIODARONE 200 MG TAB PO (08:49)
[2019-02-21] MEDS: FENTAnyl (DRIP) 1000 mcg/100mL 100 ML IV (09:19)
[2019-02-21] MEDS: FLUCONAZOLE 100 MG/50 ML (PMX) 50 ML IVPB (13:36)
[2019-02-21] MEDS: MULTIVITAMINS 30 ML CUP NGT (16:56)
[2019-02-21] MEDS: METOCLOPRAMIDE 10 MG INJ IV ×3 (16:57→23:40)
[2019-02-21] MEDS: ASCORBIC ACID 500 MG TAB NGT (16:57)
[2019-02-21] MEDS: ZINC SULFATE 220 MG CAP PO (16:57)
[2019-02-21] MEDS: FOLIC ACID 1 MG TAB NGT (17:02)
[2019-02-21] MEDS: ALPRAZOLAM 0.5 MG TAB PO (20:56)
[2019-02-21] MEDS ORDERED: VITAMIN A & D 5 GM OINT PACKET TOP (21:00)
[2019-02-22] MEDS: PROPOFOL 100 ML IV ×3 (00:33→18:51)
[2019-02-22] MEDS: VANCOMYCIN HCL 1.5 GM in SOD CHLORIDE 0.9% 250 ML IVPB (02:47)
[2019-02-22] MEDS: LANSOPRAZOLE 30 MG CAP NGT (05:44)
[2019-02-22] MEDS: METOCLOPRAMIDE 10 MG INJ IV ×3 (05:45→17:52)
[2019-02-22] MEDS: METHYLPREDNISOLONE 40 MG INJ IV ×3 (05:45→21:14)
[2019-02-22] MEDS: MEROPENEM 1 GM/50ML(PMX) 50 ML IVPB ×2 (05:50→17:52)
[2019-02-22 05:56] LABS: ADD MAN DIFF? NO
[2019-02-22 06:10] LABS: WHITE BLOOD COUNT 15.3 10^3/ul (4.8-10.8)
[2019-02-22 06:10] LABS: ABNORMAL IP MESSAGE 1; BASOPHILS % 0.1 % (0.0-2.0); HEMATOCRIT 35.6 % (42.0-52.0); HEMOGLOBIN 11.5 g/dl (14.0-18.0); LYMPHOCYTES # 0.3 10^3/ul (0.8-2.9); LYMPHOCYTES % 2.1 % (15.0-51.0); MEAN CORPUSCULAR HEMOGLOBIN 31.2 pg (29.0-33.0); MEAN CORPUSCULAR HGB CONC 32.3 g/dl (32.0-37.0); MEAN CORPUSCULAR VOLUME 96.5 fl (82.0-101.0); MONOCYTE # 0.5 10^3/ul (0.3-0.9); MONOCYTES % 3.5 % (0.0-11.0); NEUTROPHIL # 14.2 10^3/ul (1.6-7.5); NEUTROPHILS % 93.1 % (39.0-77.0); PLATELET COUNT 190 10^3/UL (140-415); POSITIVE DIFF @See below; RED BLOOD COUNT 3.69 10^6/ul (4.70-6.10); RED CELL DISTRIBUTION WIDTH 13.9 % (11.5-14.5)
[2019-02-22 06:40] LABS: MAGNESIUM 3.1 mg/dl (1.7-2.5)
[2019-02-22 06:40] LABS: PHOSPHORUS 4.6 mg/dl (2.5-4.9)
[2019-02-22 06:45] LABS: B-TYPE NATRIURETIC PEPTIDE 3670 PG/ML (0-450)
[2019-02-22 06:47] LABS: ALANINE AMINOTRANSFERASE 53 IU/L (13-69); ALBUMIN 2.4 g/dl (3.3-4.9); ALKALINE PHOSPHATASE 74 IU/L (42-121); ANION GAP 5 (5-13); ASPARTATE AMINO TRANSFERASE 33 IU/L (15-46); BILIRUBIN,INDIRECT 0.3 mg/dl (0-1.1); BILIRUBIN,TOTAL 0.3 mg/dl (0.2-1.3); BLOOD UREA NITROGEN 88 mg/dl (7-20); CALCIUM 7.4 mg/dl (8.4-10.2); CARBON DIOXIDE 24 mmol/L (21-31); CHLORIDE 115 mmol/L (97-110); CREATININE 1.78 mg/dl (0.61-1.24); GLUCOSE 147 mg/dl (70-220); POTASSIUM 4.1 mmol/L (3.5-5.1); SODIUM 144 mmol/L (135-144); TOTAL PROTEIN 4.8 g/dl (6.1-8.1)
[2019-02-22 07:07] LABS: THYROID STIMULATING HORMONE 0.026 MIU/L (0.465-4.680)
[2019-02-22] MEDS: FUROSEMIDE 20 MG INJ IV (09:01)
[2019-02-22] MEDS: ASCORBIC ACID 500 MG TAB NGT (09:02)
[2019-02-22] MEDS: DOCUSATE SODIUM 100 MG CAP PO ×2 (09:02→21:00)
[2019-02-22] MEDS: ESCITALOPRAM 10 MG TAB PO (09:03)
[2019-02-22] MEDS: ZINC SULFATE 220 MG CAP PO (09:03)
[2019-02-22] MEDS: PETROLATUM 5 GM OINT TOP ×2 (09:04→21:13)
[2019-02-22] MEDS: DOXYCYCLINE 100 MG in SOD CHLORIDE 0.9% 250 ML IVPB ×2 (09:06→21:13)
[2019-02-22] MEDS: MULTIVITAMINS 30 ML CUP NGT (09:06)
[2019-02-22] MEDS: HEPARIN 5,000 UNIT/1 ML VIAL SC ×2 (09:09→21:16)
[2019-02-22] MEDS: FOLIC ACID 1 MG TAB NGT (09:13)
[2019-02-22] MEDS: LIDOCAINE 1% (MPF) 5 ML VIAL SC (09:30)
[2019-02-22 10:14] LABS: Allen Test ACCEPTAB; Arterial Base Excess -1.6 mmol/L (-3.0-3); Arterial Blood Gas Oxygen Sat 95.1 mmHG (95.0-100.0); Arterial COHb 0 % (0.0-3.0); Arterial Fraction of Oxyhgb 94.8 % (93.0-99.0); Arterial HCO3 22.5 mmol/L (22.0-26.0); Arterial MetHb 0.3 % (0.0-1.5); Arterial pCO2 35.9 mmhg (35-45); MODE VENT - AC; Site Right Radial
[2019-02-22] MEDS: FLUCONAZOLE 100 MG/50 ML (PMX) 50 ML IVPB (12:05)
[2019-02-22] MEDS: metroNIDAZOLE 500 MG TAB PO ×2 (16:50→21:14)
[2019-02-22] MEDS: ALPRAZOLAM 0.5 MG TAB PO (21:18)
[2019-02-23] MEDS: METOCLOPRAMIDE 10 MG INJ IV ×4 (00:19→17:25)
[2019-02-23] MEDS: PROPOFOL 100 ML IV ×3 (02:13→21:25)
[2019-02-23 05:33] LABS: ABNORMAL IP MESSAGE 1; HEMATOCRIT 45.6 % (42.0-52.0); HEMOGLOBIN 14.8 g/dl (14.0-18.0); MEAN CORPUSCULAR HGB CONC 32.5 g/dl (32.0-37.0); MEAN CORPUSCULAR VOLUME 95.4 fl (82.0-101.0); MEAN PLATELET VOLUME 11.8 fl (7.4-10.4); PLATELET COUNT 235 10^3/UL (140-415); POSITIVE DIFF @See below; RED BLOOD COUNT 4.78 10^6/ul (4.70-6.10); RED CELL DISTRIBUTION WIDTH 14.2 % (11.5-14.5)
[2019-02-23 05:33] LABS: WHITE BLOOD COUNT 25.1 10^3/ul (4.8-10.8)
[2019-02-23 05:49] LABS: ADD MAN DIFF? YES
[2019-02-23] MEDS: MEROPENEM 1 GM/50ML(PMX) 50 ML IVPB (06:14)
[2019-02-23] MEDS: METHYLPREDNISOLONE 40 MG INJ IV (06:14)
[2019-02-23] MEDS: LANSOPRAZOLE 30 MG CAP NGT (06:14)
[2019-02-23] MEDS: metroNIDAZOLE 500 MG TAB PO ×3 (06:14→22:34)
[2019-02-23 06:19] LABS: ANION GAP 7 (5-13); BLOOD UREA NITROGEN 94 mg/dl (7-20); CALCIUM 7.4 mg/dl (8.4-10.2); CARBON DIOXIDE 23 mmol/L (21-31); CHLORIDE 116 mmol/L (97-110); CREATININE 1.86 mg/dl (0.61-1.24); GLUCOSE 151 mg/dl (70-220); MAGNESIUM 3.1 mg/dl (1.7-2.5); PHOSPHORUS 5.5 mg/dl (2.5-4.9); SODIUM 146 mmol/L (135-144)
[2019-02-23 06:26] LABS: POTASSIUM 4.2 mmol/L (3.5-5.1)
[2019-02-23] MEDS: DOXYCYCLINE 100 MG in SOD CHLORIDE 0.9% 250 ML IVPB ×2 (08:22→21:26)
[2019-02-23] MEDS: FOLIC ACID 1 MG TAB NGT (08:24)
[2019-02-23] MEDS: MULTIVITAMINS 30 ML CUP NGT (08:24)
[2019-02-23] MEDS: ASCORBIC ACID 500 MG TAB NGT (08:25)
[2019-02-23] MEDS: ESCITALOPRAM 10 MG TAB PO (08:25)
[2019-02-23] MEDS: PETROLATUM 5 GM OINT TOP ×2 (08:26→21:26)
[2019-02-23] MEDS: ZINC SULFATE 220 MG CAP PO (08:26)
[2019-02-23] MEDS: HEPARIN 5,000 UNIT/1 ML VIAL SC ×2 (08:27→21:28)
[2019-02-23] MEDS: DOCUSATE SODIUM 100 MG CAP PO ×2 (08:30→21:26)
[2019-02-23 10:44] LABS: ANISOCYTOSIS 1+ (0-0); BAND NEUTROPHILS #M 0.7 10^3/ul (0.0-0.6); BAND NEUTROPHILS % (M) 3 % (0-4); BURR CELLS 3+ (0-0); GIANT THROMBO% (M) 1 % (0-0); MONOCYTE #M 0.5 10^3/ul (0.3-0.9); MONOCYTES % (M) 2 % (0-11); MYELOCYTES #M 0.2 10^3/ul (0.0-0.0); MYELOCYTES % (M) 1 % (0-0); OVALOCYTES 2+ (0-0); PLATELET ESTIMATE NORMAL; POIKILOCYTOSIS 3+ (0-0); SEG NEUT #M 23.8 10^3/ul (1.6-7.5); SEGMENTED NEUTROPHILS (M) % 94 % (39-77); SMUDGE%M 3 % (0-0)
[2019-02-23] MEDS: LIDOCAINE 1% (MPF) 5 ML VIAL SC (11:16)
[2019-02-23] MEDS: FLUCONAZOLE 100 MG/50 ML (PMX) 50 ML IVPB (11:24)
[2019-02-23] MEDS ORDERED: VANCOMYCIN HCL 1.5 GM in SOD CHLORIDE 0.9% 250 ML IVPB (12:00)
[2019-02-23] MEDS: ALPRAZOLAM 0.5 MG TAB PO (21:00)
[2019-02-24] MEDS: METOCLOPRAMIDE 10 MG INJ IV ×3 (01:02→11:12)
[2019-02-24] MEDS: LANSOPRAZOLE 30 MG CAP NGT (05:44)
[2019-02-24] MEDS: metroNIDAZOLE 500 MG TAB PO ×3 (05:44→21:42)
[2019-02-24] MEDS: PROPOFOL 100 ML IV ×3 (05:50→23:03)
[2019-02-24 07:58] LABS: ABNORMAL IP MESSAGE 1; HEMOGLOBIN 14.4 g/dl (14.0-18.0); MEAN CORPUSCULAR HEMOGLOBIN 30.4 pg (29.0-33.0); MEAN CORPUSCULAR VOLUME 95.1 fl (82.0-101.0); MEAN PLATELET VOLUME 12.3 fl (7.4-10.4); PLATELET COUNT 201 10^3/UL (140-415); POSITIVE DIFF @See below; RED BLOOD COUNT 4.73 10^6/ul (4.70-6.10); RED CELL DISTRIBUTION WIDTH 14.5 % (11.5-14.5)
[2019-02-24 07:58] LABS: WHITE BLOOD COUNT 32.2 10^3/ul (4.8-10.8)
[2019-02-24 08:04] LABS: ADD MAN DIFF? YES
[2019-02-24 08:15] LABS: ANION GAP 7 (5-13); BLOOD UREA NITROGEN 105 mg/dl (7-20); CALCIUM 7.3 mg/dl (8.4-10.2); CARBON DIOXIDE 21 mmol/L (21-31); CHLORIDE 117 mmol/L (97-110); CREATININE 1.95 mg/dl (0.61-1.24); GLUCOSE 148 mg/dl (70-220); POTASSIUM 4.2 mmol/L (3.5-5.1); SODIUM 145 mmol/L (135-144)
[2019-02-24 08:16] LABS: MAGNESIUM 3.1 mg/dl (1.7-2.5)
[2019-02-24 08:16] LABS: PHOSPHORUS 6.4 mg/dl (2.5-4.9)
[2019-02-24 08:59] LABS: BAND NEUTROPHILS #M 0.6 10^3/ul (0.0-0.6); BAND NEUTROPHILS % (M) 2 % (0-4); BURR CELLS 1+ (0-0); LYMPHOCYTES #M 1.6 10^3/ul (0.8-2.9); LYMPHOCYTES % (M) 5 % (15-51); MONOCYTE #M 2.2 10^3/ul (0.3-0.9); MONOCYTES % (M) 7 % (0-11); PLATELET ESTIMATE NORMAL; POIKILOCYTOSIS 2+ (0-0); SEG NEUT #M 27.9 10^3/ul (1.6-7.5); SEGMENTED NEUTROPHILS (M) % 86 % (39-77); SMUDGE%M 11 % (0-0); SPHEROCYTES 1+ (0-0)
[2019-02-24] MEDS: DOCUSATE SODIUM 100 MG CAP PO ×2 (09:00→21:24)
[2019-02-24] MEDS: ESCITALOPRAM 10 MG TAB PO (09:10)
[2019-02-24] MEDS: ASCORBIC ACID 500 MG TAB NGT (09:10)
[2019-02-24] MEDS: PETROLATUM 5 GM OINT TOP ×2 (09:10→21:25)
[2019-02-24] MEDS: FOLIC ACID 1 MG TAB NGT (09:10)
[2019-02-24] MEDS: MULTIVITAMINS 30 ML CUP NGT (09:10)
[2019-02-24] MEDS: DOXYCYCLINE 100 MG in SOD CHLORIDE 0.9% 250 ML IVPB ×2 (09:11→21:24)
[2019-02-24] MEDS: ZINC SULFATE 220 MG CAP PO (09:11)
[2019-02-24] MEDS: HEPARIN 5,000 UNIT/1 ML VIAL SC ×2 (09:32→21:26)
[2019-02-24] MEDS: FLUCONAZOLE 100 MG/50 ML (PMX) 50 ML IVPB (11:12)
[2019-02-24] MEDS: VANCOMYCIN HCL 250 MG/5ML POSYG PO ×3 (12:41→23:55)
[2019-02-24] MEDS: ALPRAZOLAM 0.5 MG TAB PO (21:00)
[2019-02-25 05:04] LABS: ADD MAN DIFF? NO
[2019-02-25 05:08] LABS: WHITE BLOOD COUNT 28.1 10^3/ul (4.8-10.8)
[2019-02-25 05:08] LABS: ABNORMAL IP MESSAGE 1; BASOPHIL # 0.1 10^3/ul (0.0-0.1); BASOPHILS % 0.2 % (0.0-2.0); HEMATOCRIT 39.2 % (42.0-52.0); HEMOGLOBIN 12.7 g/dl (14.0-18.0); LYMPHOCYTES # 1.5 10^3/ul (0.8-2.9); LYMPHOCYTES % 5.3 % (15.0-51.0); MEAN CORPUSCULAR HEMOGLOBIN 30.8 pg (29.0-33.0); MEAN CORPUSCULAR HGB CONC 32.4 g/dl (32.0-37.0); MEAN CORPUSCULAR VOLUME 94.9 fl (82.0-101.0); MONOCYTE # 1.7 10^3/ul (0.3-0.9); MONOCYTES % 5.9 % (0.0-11.0); NEUTROPHIL # 24.4 10^3/ul (1.6-7.5); NEUTROPHILS % 86.7 % (39.0-77.0); PLATELET COUNT 151 10^3/UL (140-415); POSITIVE DIFF @See below; RED BLOOD COUNT 4.13 10^6/ul (4.70-6.10); RED CELL DISTRIBUTION WIDTH 14.6 % (11.5-14.5)
[2019-02-25] MEDS: LANSOPRAZOLE 30 MG CAP NGT (05:29)
[2019-02-25] MEDS: metroNIDAZOLE 500 MG TAB PO ×3 (05:29→21:39)
[2019-02-25] MEDS: VANCOMYCIN HCL 250 MG/5ML POSYG PO ×4 (05:31→23:59)
[2019-02-25 05:34] LABS: ANION GAP 6 (5-13); BLOOD UREA NITROGEN 109 mg/dl (7-20); CARBON DIOXIDE 20 mmol/L (21-31); CHLORIDE 118 mmol/L (97-110); CREATININE 2.02 mg/dl (0.61-1.24); GLUCOSE 119 mg/dl (70-220); MAGNESIUM 2.8 mg/dl (1.7-2.5); PHOSPHORUS 6.7 mg/dl (2.5-4.9); POTASSIUM 4.3 mmol/L (3.5-5.1); SODIUM 144 mmol/L (135-144)
[2019-02-25] MEDS: PROPOFOL 100 ML IV ×2 (08:35→17:29)
[2019-02-25] MEDS: PETROLATUM 5 GM OINT TOP ×2 (09:00→21:40)
[2019-02-25] MEDS: DOCUSATE SODIUM 100 MG CAP PO ×2 (09:00→21:00)
[2019-02-25] MEDS: FOLIC ACID 1 MG TAB NGT (09:49)
[2019-02-25] MEDS: ZINC SULFATE 220 MG CAP PO (09:49)
[2019-02-25] MEDS: ESCITALOPRAM 10 MG TAB PO (09:49)
[2019-02-25] MEDS: DOXYCYCLINE 100 MG in SOD CHLORIDE 0.9% 250 ML IVPB ×2 (09:49→21:39)
[2019-02-25] MEDS: ASCORBIC ACID 500 MG TAB NGT (09:49)
[2019-02-25] MEDS: MULTIVITAMINS 30 ML CUP NGT (09:52)
[2019-02-25] MEDS: HEPARIN 5,000 UNIT/1 ML VIAL SC ×2 (09:52→21:43)
[2019-02-25] MEDS: FUROSEMIDE 40 MG INJ IV (10:19)
[2019-02-25] MEDS: FLUCONAZOLE 100 MG/50 ML (PMX) 50 ML IVPB (13:01)
[2019-02-25] MEDS: ALPRAZOLAM 0.5 MG TAB PO (21:39)
[2019-02-25] MEDS: BALSAM PERU/CASTOR OIL 60 GM TUBE TOP (21:39)
[2019-02-26] MEDS: PROPOFOL 100 ML IV ×2 (01:37→13:19)
[2019-02-26 05:01] LABS: ADD MAN DIFF? NO
[2019-02-26 05:13] LABS: WHITE BLOOD COUNT 21.5 10^3/ul (4.8-10.8)
[2019-02-26 05:13] LABS: BASOPHILS % 0.2 % (0.0-2.0); EOSINOPHILS % 0.1 % (0.0-7.0); HEMOGLOBIN 11.7 g/dl (14.0-18.0); LYMPHOCYTES # 1.4 10^3/ul (0.8-2.9); LYMPHOCYTES % 6.6 % (15.0-51.0); MEAN CORPUSCULAR HEMOGLOBIN 32.1 pg (29.0-33.0); MEAN CORPUSCULAR HGB CONC 33.4 g/dl (32.0-37.0); MEAN CORPUSCULAR VOLUME 95.9 fl (82.0-101.0); MONOCYTE # 0.8 10^3/ul (0.3-0.9); MONOCYTES % 3.5 % (0.0-11.0); NEUTROPHILS % 88.3 % (39.0-77.0); PLATELET COUNT 124 10^3/UL (140-415); RED BLOOD COUNT 3.65 10^6/ul (4.70-6.10); RED CELL DISTRIBUTION WIDTH 14.5 % (11.5-14.5)
[2019-02-26 05:31] LABS: ANION GAP 7 (5-13); BLOOD UREA NITROGEN 116 mg/dl (7-20); CALCIUM 7.2 mg/dl (8.4-10.2); CARBON DIOXIDE 20 mmol/L (21-31); CHLORIDE 117 mmol/L (97-110); CREATININE 2.39 mg/dl (0.61-1.24); GLUCOSE 106 mg/dl (70-220); MAGNESIUM 2.8 mg/dl (1.7-2.5); PHOSPHORUS 7.1 mg/dl (2.5-4.9); POTASSIUM 4.1 mmol/L (3.5-5.1); SODIUM 144 mmol/L (135-144)
[2019-02-26] MEDS: VANCOMYCIN HCL 250 MG/5ML POSYG PO ×3 (05:35→16:39)
[2019-02-26] MEDS: metroNIDAZOLE 500 MG TAB PO ×3 (05:35→22:00)
[2019-02-26] MEDS: LANSOPRAZOLE 30 MG CAP NGT (05:36)
[2019-02-26 05:46] LABS: FREE T4 (FREE THYROXINE) 0.92 ng/dl (0.85-1.93)
[2019-02-26] MEDS: DOCUSATE SODIUM 100 MG CAP PO ×2 (07:42→21:00)
[2019-02-26] MEDS: MULTIVITAMINS 30 ML CUP NGT (08:21)
[2019-02-26] MEDS: ESCITALOPRAM 10 MG TAB PO (08:21)
[2019-02-26] MEDS: FOLIC ACID 1 MG TAB NGT (08:21)
[2019-02-26] MEDS: ZINC SULFATE 220 MG CAP PO (08:21)
[2019-02-26] MEDS: ASCORBIC ACID 500 MG TAB NGT (08:21)
[2019-02-26] MEDS: PETROLATUM 5 GM OINT TOP ×2 (08:22→21:00)
[2019-02-26] MEDS: BALSAM PERU/CASTOR OIL 60 GM TUBE TOP ×2 (08:22→21:00)
[2019-02-26] MEDS: HEPARIN 5,000 UNIT/1 ML VIAL SC ×2 (08:36→21:00)
[2019-02-26] MEDS: DOXYCYCLINE 100 MG in SOD CHLORIDE 0.9% 250 ML IVPB ×2 (08:48→21:00)
[2019-02-26] MEDS: FLUCONAZOLE 100 MG/50 ML (PMX) 50 ML IVPB (11:22)
[2019-02-26] MEDS: CLONIDINE 0.1 MG/24 HR PATCH TRANSDERM (13:19)
[2019-02-26] MEDS: LACTOBACILLUS RHAMNOSUS CAP PO ×2 (14:18→21:00)
[2019-02-26] MEDS: TRIAMCINOLONE ACET 0.1% 15 GM CR TOP ×2 (16:38→21:00)
[2019-02-26] MEDS: valACYclovir 500 MG TAB PO ×2 (16:39→21:00)
[2019-02-26] MEDS: ALPRAZOLAM 0.5 MG TAB PO (21:00)
[2019-02-27] MEDS: VANCOMYCIN HCL 250 MG/5ML POSYG PO ×4 (01:31→17:18)
[2019-02-27] MEDS: DEXMEDETOMIDINE HCL 200 MCG in SOD CHLORIDE 0.9% 48 ML IV ×2 (01:31→06:56)
[2019-02-27 05:13] LABS: ADD MAN DIFF? NO
[2019-02-27 05:21] LABS: WHITE BLOOD COUNT 14.9 10^3/ul (4.8-10.8)
[2019-02-27 05:21] LABS: BASOPHILS % 0.1 % (0.0-2.0); EOSINOPHILS # 0.1 10^3/ul (0.0-0.5); EOSINOPHILS % 0.5 % (0.0-7.0); HEMATOCRIT 30.4 % (42.0-52.0); HEMOGLOBIN 9.8 g/dl (14.0-18.0); LYMPHOCYTES # 1.2 10^3/ul (0.8-2.9); LYMPHOCYTES % 8.3 % (15.0-51.0); MEAN CORPUSCULAR HEMOGLOBIN 30.8 pg (29.0-33.0); MEAN CORPUSCULAR HGB CONC 32.2 g/dl (32.0-37.0); MEAN CORPUSCULAR VOLUME 95.6 fl (82.0-101.0); MEAN PLATELET VOLUME 12.8 fl (7.4-10.4); MONOCYTE # 0.4 10^3/ul (0.3-0.9); MONOCYTES % 2.8 % (0.0-11.0); NEUTROPHILS % 87.3 % (39.0-77.0); PLATELET COUNT 117 10^3/UL (140-415); RED BLOOD COUNT 3.18 10^6/ul (4.70-6.10); RED CELL DISTRIBUTION WIDTH 14.8 % (11.5-14.5)
[2019-02-27 05:27] LABS: AADO2 Arterial 78.3 mmHg (7.0-24.0); Allen Test ACCEPTAB; Arterial Base Excess -5.3 mmol/L (-3.0-3); Arterial Blood Gas Oxygen Sat 96.4 mmHG (95.0-100.0); Arterial COHb 0.3 % (0.0-3.0); Arterial Fraction of Oxyhgb 96.1 % (93.0-99.0); Arterial HCO3 18.8 mmol/L (22.0-26.0); Arterial MetHb 0 % (0.0-1.5); Arterial pCO2 31.5 mmhg (35-45); MODE VENT - AC; Site Right Radial
[2019-02-27] MEDS: metroNIDAZOLE 500 MG TAB PO ×3 (05:28→21:35)
[2019-02-27] MEDS: LANSOPRAZOLE 30 MG CAP NGT (05:29)
[2019-02-27 05:39] LABS: LACTIC ACID 1.3 mmol/L (0.5-2.0)
[2019-02-27 05:40] LABS: ANION GAP 5 (5-13); BLOOD UREA NITROGEN 108 mg/dl (7-20); CALCIUM 7.2 mg/dl (8.4-10.2); CARBON DIOXIDE 22 mmol/L (21-31); CHLORIDE 122 mmol/L (97-110); CREATININE 2.39 mg/dl (0.61-1.24); GLUCOSE 116 mg/dl (70-220); SODIUM 149 mmol/L (135-144)
[2019-02-27] MEDS: MULTIVITAMINS 30 ML CUP NGT (08:34)
[2019-02-27] MEDS: ASCORBIC ACID 500 MG TAB NGT (08:34)
[2019-02-27] MEDS: valACYclovir 500 MG TAB PO ×2 (08:34→20:13)
[2019-02-27] MEDS: ZINC SULFATE 220 MG CAP PO (08:34)
[2019-02-27] MEDS: DOXYCYCLINE 100 MG in SOD CHLORIDE 0.9% 250 ML IVPB (08:34)
[2019-02-27] MEDS: LACTOBACILLUS RHAMNOSUS CAP PO ×2 (08:34→20:13)
[2019-02-27] MEDS: FOLIC ACID 1 MG TAB NGT (08:34)
[2019-02-27] MEDS: HEPARIN 5,000 UNIT/1 ML VIAL SC ×2 (08:37→20:21)
[2019-02-27] MEDS: PETROLATUM 5 GM OINT TOP ×2 (08:38→20:14)
[2019-02-27] MEDS: TRIAMCINOLONE ACET 0.1% 15 GM CR TOP ×2 (08:38→20:14)
[2019-02-27] MEDS: BALSAM PERU/CASTOR OIL 60 GM TUBE TOP ×2 (08:38→20:14)
[2019-02-27] MEDS: DOCUSATE SODIUM 100 MG CAP PO ×2 (08:43→20:02)
[2019-02-27] MEDS: ESCITALOPRAM 10 MG TAB PO (08:44)
[2019-02-27] MEDS: FLUCONAZOLE 100 MG/50 ML (PMX) 50 ML IVPB (12:52)
[2019-02-27] MEDS: PROPOFOL 100 ML IV ×2 (13:10→22:44)
[2019-02-27] MEDS: FUROSEMIDE 40 MG INJ IV ×2 (13:13→17:18)
[2019-02-27] MEDS: SEVELAMER CARBONATE 0.8 GM PKT NGT ×2 (13:13→20:14)
[2019-02-27] MEDS ORDERED: VANCOMYCIN IV PER PHARMACY XX (19:00)
[2019-02-27] MEDS: ALPRAZOLAM 0.5 MG TAB PO (20:13)
[2019-02-27] MEDS ORDERED: VANCOMYCIN HCL 1.5 GM in SOD CHLORIDE 0.9% 250 ML IVPB (21:00)
[2019-02-27] MEDS: VANCOMYCIN HCL 1.5 GM in SOD CHLORIDE 0.9% 250 ML IVPB (21:35)
[2019-02-28] MEDS: VANCOMYCIN HCL 250 MG/5ML POSYG PO ×4 (00:47→18:13)
[2019-02-28 05:13] LABS: ADD MAN DIFF? NO
[2019-02-28] MEDS: metroNIDAZOLE 500 MG TAB PO ×3 (05:20→22:35)
[2019-02-28] MEDS: LANSOPRAZOLE 30 MG CAP NGT (05:20)
[2019-02-28] MEDS: SEVELAMER CARBONATE 0.8 GM PKT NGT ×3 (05:20→20:43)
[2019-02-28 05:25] LABS: WHITE BLOOD COUNT 14.2 10^3/ul (4.8-10.8)
[2019-02-28 05:25] LABS: BASOPHILS % 0.1 % (0.0-2.0); EOSINOPHILS # 0.1 10^3/ul (0.0-0.5); EOSINOPHILS % 0.9 % (0.0-7.0); HEMATOCRIT 29.3 % (42.0-52.0); HEMOGLOBIN 9.3 g/dl (14.0-18.0); LYMPHOCYTES # 1.8 10^3/ul (0.8-2.9); LYMPHOCYTES % 12.6 % (15.0-51.0); MEAN CORPUSCULAR HEMOGLOBIN 30.7 pg (29.0-33.0); MEAN CORPUSCULAR HGB CONC 31.7 g/dl (32.0-37.0); MEAN CORPUSCULAR VOLUME 96.7 fl (82.0-101.0); MEAN PLATELET VOLUME 12.8 fl (7.4-10.4); MONOCYTE # 0.5 10^3/ul (0.3-0.9); MONOCYTES % 3.3 % (0.0-11.0); NEUTROPHIL # 11.7 10^3/ul (1.6-7.5); NEUTROPHILS % 82.3 % (39.0-77.0); PLATELET COUNT 134 10^3/UL (140-415); RED BLOOD COUNT 3.03 10^6/ul (4.70-6.10); RED CELL DISTRIBUTION WIDTH 14.7 % (11.5-14.5)
[2019-02-28 06:03] LABS: ANION GAP 6 (5-13); BLOOD UREA NITROGEN 110 mg/dl (7-20); CALCIUM 7.2 mg/dl (8.4-10.2); CARBON DIOXIDE 22 mmol/L (21-31); CHLORIDE 123 mmol/L (97-110); CREATININE 2.51 mg/dl (0.61-1.24); GLUCOSE 115 mg/dl (70-220); POTASSIUM 3.9 mmol/L (3.5-5.1); SODIUM 151 mmol/L (135-144)
[2019-02-28] MEDS: PROPOFOL 100 ML IV (06:57)
[2019-02-28 10:14] LABS: AADO2 Arterial 83.6 mmHg (7.0-24.0); Allen Test ACCEPTAB; Arterial Blood Gas Oxygen Sat 95.5 mmHG (95.0-100.0); Arterial COHb 0.1 % (0.0-3.0); Arterial Fraction of Oxyhgb 95.3 % (93.0-99.0); Arterial HCO3 20.2 mmol/L (22.0-26.0); Arterial MetHb 0.1 % (0.0-1.5); Arterial pCO2 33.8 mmhg (35-45); Blood Gas PS 10; MODE VENT - CPAP; Site Right Radial
[2019-02-28] MEDS: PETROLATUM 5 GM OINT TOP ×2 (10:28→20:44)
[2019-02-28] MEDS: LACTOBACILLUS RHAMNOSUS CAP PO ×2 (10:28→20:43)
[2019-02-28] MEDS: ZINC SULFATE 220 MG CAP PO (10:29)
[2019-02-28] MEDS: MULTIVITAMINS 30 ML CUP NGT (10:29)
[2019-02-28] MEDS: FOLIC ACID 1 MG TAB NGT (10:29)
[2019-02-28] MEDS: valACYclovir 500 MG TAB PO ×2 (10:29→20:43)
[2019-02-28] MEDS: ESCITALOPRAM 10 MG TAB PO (10:29)
[2019-02-28] MEDS: DOCUSATE SODIUM 100 MG CAP PO ×2 (10:29→20:17)
[2019-02-28] MEDS: ASCORBIC ACID 500 MG TAB NGT (10:29)
[2019-02-28] MEDS: TRIAMCINOLONE ACET 0.1% 15 GM CR TOP ×2 (10:30→20:43)
[2019-02-28] MEDS: BALSAM PERU/CASTOR OIL 60 GM TUBE TOP ×2 (10:30→20:43)
[2019-02-28] MEDS: DEXMEDETOMIDINE HCL 200 MCG in SOD CHLORIDE 0.9% 48 ML IV ×2 (10:30→20:39)
[2019-02-28] MEDS: HEPARIN 5,000 UNIT/1 ML VIAL SC ×2 (10:34→20:44)
[2019-02-28] MEDS: FLUCONAZOLE 100 MG/50 ML (PMX) 50 ML IVPB (11:46)
[2019-02-28 19:23] LABS: ADD UMIC YES; UR ASCORBIC ACID 40 mg/dL (NEGATIVE); UR BACTERIA FEW /HPF (NONE SEEN); UR BILIRUBIN (Dip) NEGATIVE (NEGATIVE); UR BLOOD (Dip) 2+ mg/dL (NEGATIVE); UR CLARITY SLIGHTLY CLOUDY (CLEAR); UR COLOR YELLOW (YELLOW); UR GLUCOSE (Dip) NEGATIVE (NEGATIVE); UR KETONES (Dip) NEGATIVE (NEGATIVE); UR LEUKOCYTE ESTERASE (Dip) NEGATIVE Leu/ul (NEGATIVE); UR NITRITE (Dip) NEGATIVE (NEGATIVE); UR RBC 8 /HPF (0-5); UR SPECIFIC GRAVITY (Dip) 1.017 (1.003-1.030); UR TOTAL PROTEIN (Dip) NEGATIVE (NEGATIVE); UR UROBILINOGEN (Dip) NEGATIVE (NEGATIVE); UR WBC 2 /HPF (0-5)
[2019-02-28 19:58] LABS: OCCULT BLOOD STOOL POSITIVE (NEGATIVE)
[2019-02-28] MEDS: ALPRAZOLAM 0.5 MG TAB PO (20:43)
[2019-03-01] MEDS: VANCOMYCIN HCL 250 MG/5ML POSYG PO ×4 (00:41→18:25)
[2019-03-01] MEDS: DEXMEDETOMIDINE HCL 200 MCG in SOD CHLORIDE 0.9% 48 ML IV ×3 (00:53→18:25)
[2019-03-01 05:08] LABS: ADD MAN DIFF? NO
[2019-03-01 05:11] LABS: BASOPHILS % 0.1 % (0.0-2.0); EOSINOPHILS # 0.2 10^3/ul (0.0-0.5); EOSINOPHILS % 1.5 % (0.0-7.0); HEMATOCRIT 26.1 % (42.0-52.0); HEMOGLOBIN 8.2 g/dl (14.0-18.0); LYMPHOCYTES # 1.3 10^3/ul (0.8-2.9); LYMPHOCYTES % 10.9 % (15.0-51.0); MEAN CORPUSCULAR HEMOGLOBIN 30.5 pg (29.0-33.0); MEAN CORPUSCULAR HGB CONC 31.4 g/dl (32.0-37.0); MEAN PLATELET VOLUME 12.7 fl (7.4-10.4); MONOCYTE # 0.3 10^3/ul (0.3-0.9); MONOCYTES % 2.7 % (0.0-11.0); NEUTROPHIL # 9.8 10^3/ul (1.6-7.5); NEUTROPHILS % 84.2 % (39.0-77.0); PLATELET COUNT 112 10^3/UL (140-415); RED BLOOD COUNT 2.69 10^6/ul (4.70-6.10); RED CELL DISTRIBUTION WIDTH 14.9 % (11.5-14.5)
[2019-03-01 05:11] LABS: WHITE BLOOD COUNT 11.6 10^3/ul (4.8-10.8)
[2019-03-01] MEDS: SEVELAMER CARBONATE 0.8 GM PKT NGT ×3 (05:14→20:48)
[2019-03-01] MEDS: metroNIDAZOLE 500 MG TAB PO (05:14)
[2019-03-01] MEDS: LANSOPRAZOLE 30 MG CAP NGT ×2 (05:15→18:25)
[2019-03-01 05:35] LABS: ANION GAP 4 (5-13); BLOOD UREA NITROGEN 100 mg/dl (7-20); CALCIUM 7.2 mg/dl (8.4-10.2); CARBON DIOXIDE 22 mmol/L (21-31); CHLORIDE 123 mmol/L (97-110); CREATININE 2.39 mg/dl (0.61-1.24); GLUCOSE 105 mg/dl (70-220); MAGNESIUM 2.5 mg/dl (1.7-2.5); PHOSPHORUS 5.4 mg/dl (2.5-4.9); POTASSIUM 4.1 mmol/L (3.5-5.1); SODIUM 149 mmol/L (135-144)
[2019-03-01] MEDS: DOCUSATE SODIUM 100 MG CAP PO ×2 (09:00→20:49)
[2019-03-01] MEDS: PROPOFOL 100 ML IV ×2 (09:30→20:50)
[2019-03-01] MEDS: MULTIVITAMINS 30 ML CUP NGT (10:29)
[2019-03-01] MEDS: valACYclovir 500 MG TAB PO ×2 (10:29→20:48)
[2019-03-01] MEDS: LACTOBACILLUS RHAMNOSUS CAP PO ×2 (10:29→20:48)
[2019-03-01] MEDS: ESCITALOPRAM 10 MG TAB PO (10:29)
[2019-03-01] MEDS: ASCORBIC ACID 500 MG TAB NGT (10:30)
[2019-03-01] MEDS: ZINC SULFATE 220 MG CAP PO (10:30)
[2019-03-01] MEDS: FOLIC ACID 1 MG TAB NGT (10:30)
[2019-03-01] MEDS: HEPARIN 5,000 UNIT/1 ML VIAL SC ×2 (10:31→20:50)
[2019-03-01] MEDS: BALSAM PERU/CASTOR OIL 60 GM TUBE TOP ×2 (10:33→20:49)
[2019-03-01] MEDS: TRIAMCINOLONE ACET 0.1% 15 GM CR TOP ×2 (10:33→20:49)
[2019-03-01] MEDS: PETROLATUM 5 GM OINT TOP ×2 (10:34→20:49)
[2019-03-01] MEDS: FLUCONAZOLE 100 MG/50 ML (PMX) 50 ML IVPB (11:55)
[2019-03-01 14:10] LABS: IMMEDIATE SPIN CROSSMATCH 1 2
[2019-03-01] MEDS: SOD CHLORIDE 0.9% 250 ML IV* (15:00)
[2019-03-01] MEDS: ALPRAZOLAM 0.5 MG TAB PO (21:04)
[2019-03-02] MEDS: VANCOMYCIN HCL 250 MG/5ML POSYG PO ×4 (00:06→18:08)
[2019-03-02] MEDS: DEXMEDETOMIDINE HCL 200 MCG in SOD CHLORIDE 0.9% 48 ML IV ×3 (00:07→07:15)
[2019-03-02] MEDS: SEVELAMER CARBONATE 0.8 GM PKT NGT ×3 (04:32→20:34)
[2019-03-02 04:48] LABS: ADD MAN DIFF? NO
[2019-03-02 04:50] LABS: WHITE BLOOD COUNT 9.8 10^3/ul (4.8-10.8)
[2019-03-02 04:50] LABS: BASOPHILS % 0.1 % (0.0-2.0); EOSINOPHILS # 0.1 10^3/ul (0.0-0.5); EOSINOPHILS % 1.3 % (0.0-7.0); HEMATOCRIT 28.8 % (42.0-52.0); HEMOGLOBIN 9.2 g/dl (14.0-18.0); LYMPHOCYTES # 1.4 10^3/ul (0.8-2.9); LYMPHOCYTES % 14.5 % (15.0-51.0); MEAN CORPUSCULAR HGB CONC 31.9 g/dl (32.0-37.0); MEAN PLATELET VOLUME 12.5 fl (7.4-10.4); MONOCYTE # 0.3 10^3/ul (0.3-0.9); MONOCYTES % 2.7 % (0.0-11.0); NEUTROPHIL # 7.9 10^3/ul (1.6-7.5); PLATELET COUNT 114 10^3/UL (140-415); RED BLOOD COUNT 2.97 10^6/ul (4.70-6.10)
[2019-03-02 05:15] LABS: ANION GAP 5 (5-13); BLOOD UREA NITROGEN 95 mg/dl (7-20); CALCIUM 7.4 mg/dl (8.4-10.2); CARBON DIOXIDE 21 mmol/L (21-31); CHLORIDE 122 mmol/L (97-110); CREATININE 2.33 mg/dl (0.61-1.24); GLUCOSE 113 mg/dl (70-220); MAGNESIUM 2.4 mg/dl (1.7-2.5); PHOSPHORUS 4.9 mg/dl (2.5-4.9); POTASSIUM 4.3 mmol/L (3.5-5.1); SODIUM 148 mmol/L (135-144)
[2019-03-02] MEDS: LANSOPRAZOLE 30 MG CAP NGT ×2 (05:53→18:08)
[2019-03-02] MEDS: METOLAZONE 2.5 MG TAB PO (08:00)
[2019-03-02] MEDS: PETROLATUM 5 GM OINT TOP ×2 (08:46→20:35)
[2019-03-02] MEDS: valACYclovir 500 MG TAB PO ×2 (08:46→20:35)
[2019-03-02] MEDS: ZINC SULFATE 220 MG CAP PO (08:46)
[2019-03-02] MEDS: ESCITALOPRAM 10 MG TAB PO (08:47)
[2019-03-02] MEDS: LACTOBACILLUS RHAMNOSUS CAP PO ×2 (08:47→20:35)
[2019-03-02] MEDS: ASCORBIC ACID 500 MG TAB NGT (08:47)
[2019-03-02] MEDS: FOLIC ACID 1 MG TAB NGT (08:47)
[2019-03-02] MEDS: DOCUSATE SODIUM 100 MG CAP PO (08:47)
[2019-03-02] MEDS: MULTIVITAMINS 30 ML CUP NGT (08:47)
[2019-03-02] MEDS: TRIAMCINOLONE ACET 0.1% 15 GM CR TOP ×2 (08:48→20:36)
[2019-03-02] MEDS: BALSAM PERU/CASTOR OIL 60 GM TUBE TOP ×2 (08:48→20:35)
[2019-03-02] MEDS: PROPOFOL 100 ML IV ×2 (08:49→21:30)
[2019-03-02] MEDS: HEPARIN 5,000 UNIT/1 ML VIAL SC ×2 (09:09→20:55)
[2019-03-02] MEDS: DOCUSATE SODIUM 10 MG/ML (10ML CUP) PO ×2 (10:54→20:35)
[2019-03-02] MEDS ORDERED: DOCUSATE SODIUM 10 MG/ML (10ML CUP) PO (11:00)
[2019-03-02 11:27] LABS: AADO2 Arterial 73.5 mmHg (7.0-24.0); Allen Test ACCEPTAB; Arterial Base Excess -5.6 mmol/L (-3.0-3); Arterial Blood Gas Oxygen Sat 96.5 mmHG (95.0-100.0); Arterial COHb 0.3 % (0.0-3.0); Arterial HCO3 18.5 mmol/L (22.0-26.0); Arterial MetHb 0.2 % (0.0-1.5); Arterial pCO2 31.4 mmhg (35-45); Blood Gas PS 15; MODE VENT - CPAP; Site Right Radial
[2019-03-02] MEDS: ALPRAZOLAM 0.5 MG TAB PO (20:35)
[2019-03-03] MEDS: VANCOMYCIN HCL 250 MG/5ML POSYG PO ×5 (01:10→23:41)
[2019-03-03] MEDS: SEVELAMER CARBONATE 0.8 GM PKT NGT ×3 (03:47→21:02)
[2019-03-03] MEDS: DEXMEDETOMIDINE HCL 200 MCG in SOD CHLORIDE 0.9% 48 ML IV (03:48)
[2019-03-03 04:50] LABS: ADD MAN DIFF? NO
[2019-03-03 04:55] LABS: WHITE BLOOD COUNT 8.7 10^3/ul (4.8-10.8)
[2019-03-03 04:55] LABS: BASOPHILS % 0.1 % (0.0-2.0); EOSINOPHILS # 0.1 10^3/ul (0.0-0.5); EOSINOPHILS % 1.6 % (0.0-7.0); HEMATOCRIT 29.2 % (42.0-52.0); HEMOGLOBIN 9.2 g/dl (14.0-18.0); LYMPHOCYTES # 1.4 10^3/ul (0.8-2.9); MEAN CORPUSCULAR HEMOGLOBIN 30.7 pg (29.0-33.0); MEAN CORPUSCULAR HGB CONC 31.5 g/dl (32.0-37.0); MEAN CORPUSCULAR VOLUME 97.3 fl (82.0-101.0); MEAN PLATELET VOLUME 12.4 fl (7.4-10.4); MONOCYTE # 0.3 10^3/ul (0.3-0.9); MONOCYTES % 2.9 % (0.0-11.0); NEUTROPHIL # 6.9 10^3/ul (1.6-7.5); NEUTROPHILS % 78.8 % (39.0-77.0); PLATELET COUNT 125 10^3/UL (140-415); RED CELL DISTRIBUTION WIDTH 15.2 % (11.5-14.5)
[2019-03-03 05:11] LABS: ANION GAP 6 (5-13); BLOOD UREA NITROGEN 87 mg/dl (7-20); CALCIUM 7.5 mg/dl (8.4-10.2); CARBON DIOXIDE 22 mmol/L (21-31); CHLORIDE 119 mmol/L (97-110); CREATININE 2.21 mg/dl (0.61-1.24); GLUCOSE 90 mg/dl (70-220); MAGNESIUM 2.4 mg/dl (1.7-2.5); PHOSPHORUS 4.9 mg/dl (2.5-4.9); POTASSIUM 4.5 mmol/L (3.5-5.1); SODIUM 147 mmol/L (135-144)
[2019-03-03] MEDS: LANSOPRAZOLE 30 MG CAP NGT ×2 (05:40→17:35)
[2019-03-03] MEDS: DOCUSATE SODIUM 10 MG/ML (10ML CUP) PO ×2 (06:59→21:02)
[2019-03-03] MEDS: BALSAM PERU/CASTOR OIL 60 GM TUBE TOP ×2 (08:38→21:03)
[2019-03-03] MEDS: ZINC SULFATE 220 MG CAP PO (08:38)
[2019-03-03] MEDS: PETROLATUM 5 GM OINT TOP ×2 (08:38→21:02)
[2019-03-03] MEDS: ASCORBIC ACID 500 MG TAB NGT (08:38)
[2019-03-03] MEDS: LACTOBACILLUS RHAMNOSUS CAP PO ×2 (08:38→17:34)
[2019-03-03] MEDS: TRIAMCINOLONE ACET 0.1% 15 GM CR TOP ×2 (08:38→22:36)
[2019-03-03] MEDS: FOLIC ACID 1 MG TAB NGT (08:38)
[2019-03-03] MEDS: ESCITALOPRAM 10 MG TAB PO (08:38)
[2019-03-03] MEDS: MULTIVITAMINS 30 ML CUP NGT (08:38)
[2019-03-03] MEDS: valACYclovir 500 MG TAB PO ×2 (08:38→21:03)
[2019-03-03] MEDS: PROPOFOL 100 ML IV ×2 (08:39→10:38)
[2019-03-03] MEDS: HEPARIN 5,000 UNIT/1 ML VIAL SC ×2 (08:41→21:28)
[2019-03-03] MEDS: FUROSEMIDE 40 MG INJ IV (08:43)
[2019-03-03] MEDS: METOLAZONE 10 MG TAB PO (09:10)
[2019-03-03] MEDS: FENTAnyl (DRIP) 1000 mcg/100mL 100 ML IV (11:11)
[2019-03-03] MEDS ORDERED: PEG/ELECTROLYTES 4L BTL PO (13:25)
[2019-03-03] MEDS: PEG/ELECTROLYTES 4L BTL PO (14:30)
[2019-03-03] MEDS: ALBUTEROL/IPRATROPIUM (NEB) 3 ML AMP HHN (21:57)
[2019-03-04] MEDS: SEVELAMER CARBONATE 0.8 GM PKT NGT ×3 (03:27→20:21)
[2019-03-04] MEDS: PROPOFOL 100 ML IV ×2 (03:27→07:46)
[2019-03-04] MEDS: LANSOPRAZOLE 30 MG CAP NGT ×2 (05:26→17:34)
[2019-03-04] MEDS: VANCOMYCIN HCL 250 MG/5ML POSYG PO ×4 (05:26→23:12)
[2019-03-04 07:53] LABS: HEMATOCRIT 28.1 % (42.0-52.0); HEMOGLOBIN 9.7 g/dl (14.0-18.0); MEAN CORPUSCULAR HEMOGLOBIN 32.6 pg (29.0-33.0); MEAN CORPUSCULAR HGB CONC 34.5 g/dl (32.0-37.0); MEAN CORPUSCULAR VOLUME 94.3 fl (82.0-101.0); PLATELET COUNT 128 10^3/UL (140-415); POSITIVE DIFF @See below; RED BLOOD COUNT 2.98 10^6/ul (4.70-6.10); RED CELL DISTRIBUTION WIDTH 14.6 % (11.5-14.5)
[2019-03-04 07:53] LABS: WHITE BLOOD COUNT 5.3 10^3/ul (4.8-10.8)
[2019-03-04 07:58] LABS: ADD MAN DIFF? YES
[2019-03-04] MEDS: BALSAM PERU/CASTOR OIL 60 GM TUBE TOP ×2 (08:09→21:53)
[2019-03-04] MEDS: TRIAMCINOLONE ACET 0.1% 15 GM CR TOP ×2 (08:09→21:53)
[2019-03-04] MEDS: FOLIC ACID 1 MG TAB NGT (08:11)
[2019-03-04] MEDS: valACYclovir 500 MG TAB PO ×2 (08:11→20:21)
[2019-03-04] MEDS: ZINC SULFATE 220 MG CAP PO (08:11)
[2019-03-04] MEDS: MULTIVITAMINS 30 ML CUP NGT (08:11)
[2019-03-04] MEDS: DOCUSATE SODIUM 10 MG/ML (10ML CUP) PO ×2 (08:11→20:21)
[2019-03-04] MEDS: PETROLATUM 5 GM OINT TOP ×2 (08:11→21:53)
[2019-03-04] MEDS: ASCORBIC ACID 500 MG TAB NGT (08:11)
[2019-03-04] MEDS: ESCITALOPRAM 10 MG TAB PO (08:11)
[2019-03-04] MEDS: LACTOBACILLUS RHAMNOSUS CAP PO ×2 (08:11→20:21)
[2019-03-04] MEDS: HEPARIN 5,000 UNIT/1 ML VIAL SC ×2 (08:13→22:00)
[2019-03-04 08:14] LABS: ANION GAP 7 (5-13); BLOOD UREA NITROGEN 65 mg/dl (7-20); CALCIUM 7.2 mg/dl (8.4-10.2); CARBON DIOXIDE 23 mmol/L (21-31); CHLORIDE 116 mmol/L (97-110); CREATININE 1.98 mg/dl (0.61-1.24); GLUCOSE 88 mg/dl (70-220); MAGNESIUM 2.1 mg/dl (1.7-2.5); PHOSPHORUS 4.6 mg/dl (2.5-4.9); POTASSIUM 4.2 mmol/L (3.5-5.1); SODIUM 146 mmol/L (135-144)
[2019-03-04 08:56] LABS: ANISOCYTOSIS 2+ (0-0); EOSINOPHILS % (M) 6 % (0-7); GIANT THROMBO% (M) 8 % (0-0); LYMPHOCYTES #M 0.9 10^3/ul (0.8-2.9); LYMPHOCYTES % (M) 18 % (15-51); PLATELET ESTIMATE DECREASED; SEGMENTED NEUTROPHILS (M) % 76 % (39-77); SMUDGE%M 378 % (0-0); SPHEROCYTES 1+ (0-0)
[2019-03-04] MEDS ORDERED: hydrALAzine 20 MG INJ IV (11:30)
[2019-03-04] MEDS ORDERED: LABETALOL HCL 20MG INJ IV (11:30)
[2019-03-04] MEDS ORDERED: MIDAZOLAM 1 MG/ML 2 ML INJ IV (11:30)
[2019-03-04] MEDS ORDERED: morphine 2 MG INJ IV (11:30)
[2019-03-04] MEDS ORDERED: EPHEDrine 25 MG/5 ML SYG IV (11:30)
[2019-03-04] MEDS: FUROSEMIDE 20 MG INJ IV (13:18)
[2019-03-04 16:29] LABS: AADO2 Arterial 83.7 mmHg (7.0-24.0); Allen Test ACCEPTAB; Arterial Base Excess -2.8 mmol/L (-3.0-3); Arterial Blood Gas Oxygen Sat 95.9 mmHG (95.0-100.0); Arterial COHb 0.4 % (0.0-3.0); Arterial Fraction of Oxyhgb 95.3 % (93.0-99.0); Arterial HCO3 21.2 mmol/L (22.0-26.0); Arterial MetHb 0.2 % (0.0-1.5); Arterial pCO2 34.6 mmhg (35-45); Blood Gas PS 15; MODE VENT - CPAP; Site Left Radial
[2019-03-04] MEDS: ALBUTEROL/IPRATROPIUM (NEB) 3 ML AMP HHN ×2 (19:10→19:11)
[2019-03-05] MEDS: ALBUTEROL/IPRATROPIUM (NEB) 3 ML AMP HHN ×4 (00:10→20:09)
[2019-03-05] MEDS: SEVELAMER CARBONATE 0.8 GM PKT NGT ×3 (04:30→20:30)
[2019-03-05 05:35] LABS: HEMATOCRIT 33.4 % (42.0-52.0); HEMOGLOBIN 10.8 g/dl (14.0-18.0); MEAN CORPUSCULAR HEMOGLOBIN 31.1 pg (29.0-33.0); MEAN CORPUSCULAR HGB CONC 32.3 g/dl (32.0-37.0); MEAN CORPUSCULAR VOLUME 96.3 fl (82.0-101.0); MEAN PLATELET VOLUME 11.5 fl (7.4-10.4); PLATELET COUNT 161 10^3/UL (140-415); POSITIVE DIFF @See below; RED BLOOD COUNT 3.47 10^6/ul (4.70-6.10); RED CELL DISTRIBUTION WIDTH 15.2 % (11.5-14.5)
[2019-03-05 05:35] LABS: WHITE BLOOD COUNT 5.6 10^3/ul (4.8-10.8)
[2019-03-05] MEDS: VANCOMYCIN HCL 250 MG/5ML POSYG PO ×4 (05:41→23:22)
[2019-03-05] MEDS: LANSOPRAZOLE 30 MG CAP NGT ×2 (05:41→16:45)
[2019-03-05 05:51] LABS: ADD MAN DIFF? YES
[2019-03-05 06:16] LABS: ANION GAP 10 (5-13); BLOOD UREA NITROGEN 60 mg/dl (7-20); CARBON DIOXIDE 23 mmol/L (21-31); CHLORIDE 115 mmol/L (97-110); CREATININE 2.18 mg/dl (0.61-1.24); GLUCOSE 87 mg/dl (70-220); MAGNESIUM 2.1 mg/dl (1.7-2.5); PHOSPHORUS 6.4 mg/dl (2.5-4.9); POTASSIUM 4.5 mmol/L (3.5-5.1); SODIUM 148 mmol/L (135-144)
[2019-03-05 08:37] LABS: ANISOCYTOSIS 1+ (0-0); BURR CELLS 1+ (0-0); LYMPHOCYTES % (M) 19 % (15-51); MONOCYTE #M 0.3 10^3/ul (0.3-0.9); MONOCYTES % (M) 6 % (0-11); PLATELET ESTIMATE NORMAL; POIKILOCYTOSIS 2+ (0-0); SEGMENTED NEUTROPHILS (M) % 75 % (39-77); SMUDGE%M 11 % (0-0); TEAR DROP CELLS 1+ (0-0)
[2019-03-05] MEDS: PETROLATUM 5 GM OINT TOP ×2 (08:51→20:42)
[2019-03-05] MEDS: TRIAMCINOLONE ACET 0.1% 15 GM CR TOP ×2 (08:51→20:41)
[2019-03-05] MEDS: METHYLPREDNISOLONE 40 MG INJ IV ×3 (08:51→20:55)
[2019-03-05] MEDS: BALSAM PERU/CASTOR OIL 60 GM TUBE TOP ×2 (08:51→20:41)
[2019-03-05] MEDS: ESCITALOPRAM 10 MG TAB PO (09:00)
[2019-03-05] MEDS: ZINC SULFATE 220 MG CAP PO (09:00)
[2019-03-05] MEDS: MULTIVITAMINS 30 ML CUP NGT (09:00)
[2019-03-05] MEDS: LACTOBACILLUS RHAMNOSUS CAP PO ×2 (09:00→20:41)
[2019-03-05] MEDS: valACYclovir 500 MG TAB PO ×2 (09:00→20:41)
[2019-03-05] MEDS: FOLIC ACID 1 MG TAB NGT (09:00)
[2019-03-05] MEDS: ASCORBIC ACID 500 MG TAB NGT (09:00)
[2019-03-05] MEDS: DOCUSATE SODIUM 10 MG/ML (10ML CUP) PO ×2 (09:00→20:41)
[2019-03-05] MEDS: HEPARIN 5,000 UNIT/1 ML VIAL SC ×2 (09:00→21:04)
[2019-03-05] MEDS: PROPOFOL 100 ML IV ×2 (09:08→20:42)
[2019-03-05] MEDS: DOXYCYCLINE 100 MG in SOD CHLORIDE 0.9% 250 ML IVPB ×2 (12:46→20:40)
[2019-03-06] MEDS: ALBUTEROL/IPRATROPIUM (NEB) 3 ML AMP HHN ×4 (01:25→20:30)
[2019-03-06] MEDS: SEVELAMER CARBONATE 0.8 GM PKT NGT ×3 (03:38→20:30)
[2019-03-06 05:21] LABS: ADD MAN DIFF? NO
[2019-03-06 05:30] LABS: ABNORMAL IP MESSAGE 1; BASOPHILS % 0.2 % (0.0-2.0); HEMATOCRIT 32.5 % (42.0-52.0); HEMOGLOBIN 10.4 g/dl (14.0-18.0); LYMPHOCYTES # 0.5 10^3/ul (0.8-2.9); LYMPHOCYTES % 7.5 % (15.0-51.0); MEAN CORPUSCULAR HEMOGLOBIN 30.5 pg (29.0-33.0); MEAN CORPUSCULAR VOLUME 95.3 fl (82.0-101.0); MEAN PLATELET VOLUME 11.3 fl (7.4-10.4); MONOCYTE # 0.1 10^3/ul (0.3-0.9); MONOCYTES % 1.8 % (0.0-11.0); NEUTROPHIL # 5.4 10^3/ul (1.6-7.5); NEUTROPHILS % 89.8 % (39.0-77.0); PLATELET COUNT 172 10^3/UL (140-415); POSITIVE DIFF @See below; RED BLOOD COUNT 3.41 10^6/ul (4.70-6.10); RED CELL DISTRIBUTION WIDTH 14.8 % (11.5-14.5)
[2019-03-06 05:48] LABS: MAGNESIUM 2.1 mg/dl (1.7-2.5)
[2019-03-06 05:48] LABS: PHOSPHORUS 5.5 mg/dl (2.5-4.9)
[2019-03-06] MEDS: VANCOMYCIN HCL 250 MG/5ML POSYG PO (06:00)
[2019-03-06] MEDS: LANSOPRAZOLE 30 MG CAP NGT ×2 (06:00→18:00)
[2019-03-06 06:01] LABS: ANION GAP 9 (5-13); BLOOD UREA NITROGEN 52 mg/dl (7-20); CALCIUM 8.2 mg/dl (8.4-10.2); CARBON DIOXIDE 24 mmol/L (21-31); CHLORIDE 117 mmol/L (97-110); CREATININE 2.05 mg/dl (0.61-1.24); GLUCOSE 135 mg/dl (70-220); POTASSIUM 4.2 mmol/L (3.5-5.1); SODIUM 150 mmol/L (135-144)
[2019-03-06] MEDS: METHYLPREDNISOLONE 40 MG INJ IV ×3 (06:46→21:02)
[2019-03-06] MEDS: valACYclovir 500 MG TAB NGT ×2 (09:00→21:00)
[2019-03-06] MEDS: FOLIC ACID 1 MG TAB NGT (09:00)
[2019-03-06] MEDS: LACTOBACILLUS RHAMNOSUS CAP NGT ×2 (09:00→21:00)
[2019-03-06] MEDS ORDERED: ACETAMINOPHEN 650MG/20.3ML CUP NGT (09:00)
[2019-03-06] MEDS: ASCORBIC ACID 500 MG TAB NGT (09:00)
[2019-03-06] MEDS: ESCITALOPRAM 10 MG TAB NGT (09:00)
[2019-03-06] MEDS: MULTIVITAMINS 30 ML CUP NGT (09:00)
[2019-03-06] MEDS ORDERED: MAGNESIUM HYDROXIDE 30ML CUP NGT (09:00)
[2019-03-06] MEDS: DOCUSATE SODIUM 10 MG/ML (10ML CUP) NGT ×2 (09:00→21:00)
[2019-03-06] MEDS: ZINC SULFATE 220 MG CAP NGT (09:00)
[2019-03-06] MEDS: PETROLATUM 5 GM OINT TOP ×2 (09:14→21:16)
[2019-03-06] MEDS: DOXYCYCLINE 100 MG in SOD CHLORIDE 0.9% 250 ML IVPB (09:14)
[2019-03-06] MEDS: TRIAMCINOLONE ACET 0.1% 15 GM CR TOP ×2 (09:15→21:05)
[2019-03-06] MEDS: BALSAM PERU/CASTOR OIL 60 GM TUBE TOP ×2 (09:15→21:04)
[2019-03-06] MEDS: HEPARIN 5,000 UNIT/1 ML VIAL SC ×2 (09:22→21:37)
[2019-03-06] MEDS: DEXTROSE 5% 1,000 ML IV (09:27)
[2019-03-06] MEDS: PROPOFOL 100 ML IV ×2 (09:30→21:05)
[2019-03-06] MEDS ORDERED: DOCUSATE SODIUM 10 MG/ML (10ML CUP) NGT (11:00)
[2019-03-06] MEDS: LINEZOLID 600 MG/300 ML (PMX) 300 ML IVPB ×2 (11:06→21:02)
[2019-03-06] MEDS: VANCOMYCIN HCL 250 MG/5ML POSYG NGT ×3 (12:00→23:43)
[2019-03-06] MEDS: MUPIROCIN 2% 22 GM OINT TOP ×2 (12:40→21:04)
[2019-03-06] MEDS: CHLORHEXIDINE GLUCONATE 15 ML UD CUP MT ×2 (15:03→21:02)
[2019-03-07] MEDS: ALBUTEROL/IPRATROPIUM (NEB) 3 ML AMP HHN ×7 (01:58→21:41)
[2019-03-07] MEDS: SEVELAMER CARBONATE 0.8 GM PKT NGT ×3 (04:26→20:30)
[2019-03-07 05:21] LABS: ADD MAN DIFF? NO
[2019-03-07 05:29] LABS: WHITE BLOOD COUNT 7.3 10^3/ul (4.8-10.8)
[2019-03-07 05:29] LABS: ABNORMAL IP MESSAGE 1; HEMATOCRIT 32.8 % (42.0-52.0); HEMOGLOBIN 10.4 g/dl (14.0-18.0); LYMPHOCYTES # 0.3 10^3/ul (0.8-2.9); LYMPHOCYTES % 4.5 % (15.0-51.0); MEAN CORPUSCULAR HEMOGLOBIN 30.6 pg (29.0-33.0); MEAN CORPUSCULAR HGB CONC 31.7 g/dl (32.0-37.0); MEAN CORPUSCULAR VOLUME 96.5 fl (82.0-101.0); MEAN PLATELET VOLUME 11.5 fl (7.4-10.4); MONOCYTE # 0.3 10^3/ul (0.3-0.9); MONOCYTES % 3.7 % (0.0-11.0); NEUTROPHIL # 6.6 10^3/ul (1.6-7.5); PLATELET COUNT 196 10^3/UL (140-415); POSITIVE DIFF @See below; RED CELL DISTRIBUTION WIDTH 15.3 % (11.5-14.5)
[2019-03-07 05:36] LABS: NEUTROPHILS % 91.1 % (39.0-77.0)
[2019-03-07 05:59] LABS: ANION GAP 8 (5-13); BLOOD UREA NITROGEN 48 mg/dl (7-20); CARBON DIOXIDE 26 mmol/L (21-31); CHLORIDE 114 mmol/L (97-110); CREATININE 1.98 mg/dl (0.61-1.24); GLUCOSE 151 mg/dl (70-220); POTASSIUM 3.6 mmol/L (3.5-5.1); SODIUM 148 mmol/L (135-144)
[2019-03-07 06:00] LABS: PHOSPHORUS 4.9 mg/dl (2.5-4.9)
[2019-03-07 06:00] LABS: MAGNESIUM 2.1 mg/dl (1.7-2.5)
[2019-03-07] MEDS: LANSOPRAZOLE 30 MG CAP NGT ×2 (06:00→18:00)
[2019-03-07] MEDS: VANCOMYCIN HCL 250 MG/5ML POSYG NGT (06:00)
[2019-03-07] MEDS: DEXTROSE 5% 1,000 ML IV (06:07)
[2019-03-07] MEDS ORDERED: POTASSIUM CHLORIDE (SR) 20 MEQ TAB PO (07:51)
[2019-03-07] MEDS: BUMETANIDE 2 MG in DEXTROSE 5% 17 ML IVPB (08:22)
[2019-03-07] MEDS: POTASSIUM CHLORIDE 100 ML IVPB ×2 (08:27→10:22)
[2019-03-07] MEDS: METHYLPREDNISOLONE 40 MG INJ IV ×2 (08:30→21:02)
[2019-03-07] MEDS: CHLORHEXIDINE GLUCONATE 15 ML UD CUP MT ×2 (08:30→21:02)
[2019-03-07] MEDS: LINEZOLID 600 MG/300 ML (PMX) 300 ML IVPB ×2 (08:30→21:46)
[2019-03-07] MEDS: BALSAM PERU/CASTOR OIL 60 GM TUBE TOP ×2 (08:31→21:51)
[2019-03-07] MEDS: MUPIROCIN 2% 22 GM OINT TOP ×2 (08:31→21:50)
[2019-03-07] MEDS: PETROLATUM 5 GM OINT TOP ×2 (08:31→21:51)
[2019-03-07] MEDS: TRIAMCINOLONE ACET 0.1% 15 GM CR TOP ×2 (08:31→21:51)
[2019-03-07] MEDS: LACTOBACILLUS RHAMNOSUS CAP NGT ×2 (08:32→20:52)
[2019-03-07] MEDS: DOCUSATE SODIUM 10 MG/ML (10ML CUP) NGT ×2 (08:32→20:52)
[2019-03-07] MEDS: ZINC SULFATE 220 MG CAP NGT (08:33)
[2019-03-07] MEDS: PROPOFOL 100 ML IV (08:33)
[2019-03-07] MEDS: MULTIVITAMINS 30 ML CUP NGT (08:33)
[2019-03-07] MEDS: FOLIC ACID 1 MG TAB NGT (08:33)
[2019-03-07] MEDS: ASCORBIC ACID 500 MG TAB NGT (08:33)
[2019-03-07] MEDS: valACYclovir 500 MG TAB NGT ×2 (08:33→20:53)
[2019-03-07] MEDS: METOLAZONE 5 MG TAB PO (08:34)
[2019-03-07] MEDS: HEPARIN 5,000 UNIT/1 ML VIAL SC ×2 (08:37→21:42)
[2019-03-07] MEDS: FAMOTIDINE 20 MG INJ IV (15:41)
[2019-03-07] MEDS: ASPIRIN 300 MG SUPP PR (21:02)
[2019-03-08] MEDS: ALBUTEROL/IPRATROPIUM (NEB) 3 ML AMP HHN ×4 (01:16→19:55)
[2019-03-08] MEDS: SEVELAMER CARBONATE 0.8 GM PKT NGT ×3 (04:30→20:41)
[2019-03-08 05:19] LABS: ABNORMAL IP MESSAGE 1; HEMATOCRIT 31.9 % (42.0-52.0); HEMOGLOBIN 10.2 g/dl (14.0-18.0); MEAN CORPUSCULAR HEMOGLOBIN 30.8 pg (29.0-33.0); MEAN CORPUSCULAR VOLUME 96.4 fl (82.0-101.0); MEAN PLATELET VOLUME 11.4 fl (7.4-10.4); PLATELET COUNT 196 10^3/UL (140-415); POSITIVE DIFF @See below; RED BLOOD COUNT 3.31 10^6/ul (4.70-6.10); RED CELL DISTRIBUTION WIDTH 14.9 % (11.5-14.5)
[2019-03-08 05:19] LABS: WHITE BLOOD COUNT 5.4 10^3/ul (4.8-10.8)
[2019-03-08 05:27] LABS: ANION GAP 4 (5-13); BLOOD UREA NITROGEN 45 mg/dl (7-20); CALCIUM 7.5 mg/dl (8.4-10.2); CARBON DIOXIDE 27 mmol/L (21-31); CHLORIDE 112 mmol/L (97-110); CREATININE 1.87 mg/dl (0.61-1.24); GLUCOSE 150 mg/dl (70-220); PHOSPHORUS 4.5 mg/dl (2.5-4.9); POTASSIUM 3.5 mmol/L (3.5-5.1); SODIUM 143 mmol/L (135-144)
[2019-03-08] MEDS: DEXTROSE 5% 1,000 ML IV ×2 (05:34→09:28)
[2019-03-08] MEDS: LANSOPRAZOLE 30 MG CAP NGT ×2 (05:34→18:18)
[2019-03-08 05:36] LABS: B-TYPE NATRIURETIC PEPTIDE 21100 PG/ML (0-450)
[2019-03-08 05:37] LABS: ADD MAN DIFF? YES
[2019-03-08 07:14] LABS: ANISOCYTOSIS 1+ (0-0); BAND NEUTROPHILS #M 0.2 10^3/ul (0.0-0.6); BAND NEUTROPHILS % (M) 5 % (0-4); EOSINOPHILS % (M) 1 % (0-7); LYMPHOCYTES #M 0.4 10^3/ul (0.8-2.9); LYMPHOCYTES % (M) 8 % (15-51); MONOCYTE #M 0.1 10^3/ul (0.3-0.9); MONOCYTES % (M) 3 % (0-11); PLATELET ESTIMATE NORMAL; SEG NEUT #M 4.5 10^3/ul (1.6-7.5); SEGMENTED NEUTROPHILS (M) % 83 % (39-77)
[2019-03-08] MEDS: valACYclovir 500 MG TAB NGT ×2 (09:00→20:42)
[2019-03-08] MEDS: ZINC SULFATE 220 MG CAP NGT (09:00)
[2019-03-08] MEDS: DOCUSATE SODIUM 10 MG/ML (10ML CUP) NGT ×2 (09:00→20:42)
[2019-03-08] MEDS: FOLIC ACID 1 MG TAB NGT (09:00)
[2019-03-08] MEDS: MULTIVITAMINS 30 ML CUP NGT (09:00)
[2019-03-08] MEDS: LACTOBACILLUS RHAMNOSUS CAP NGT ×2 (09:00→20:42)
[2019-03-08] MEDS: ASCORBIC ACID 500 MG TAB NGT (09:00)
[2019-03-08] MEDS: METHYLPREDNISOLONE 40 MG INJ IV ×2 (09:28→20:42)
[2019-03-08] MEDS: ASPIRIN 300 MG SUPP PR (09:28)
[2019-03-08] MEDS: CHLORHEXIDINE GLUCONATE 15 ML UD CUP MT ×2 (09:28→20:42)
[2019-03-08] MEDS: FUROSEMIDE 40 MG INJ IV (09:29)
[2019-03-08] MEDS: PETROLATUM 5 GM OINT TOP ×2 (09:31→20:44)
[2019-03-08] MEDS: TRIAMCINOLONE ACET 0.1% 15 GM CR TOP ×2 (09:32→20:43)
[2019-03-08] MEDS: BALSAM PERU/CASTOR OIL 60 GM TUBE TOP ×2 (09:32→20:44)
[2019-03-08] MEDS: MUPIROCIN 2% 22 GM OINT TOP ×2 (09:32→20:43)
[2019-03-08] MEDS: HEPARIN 5,000 UNIT/1 ML VIAL SC ×2 (09:34→20:48)
[2019-03-08] MEDS: LINEZOLID 600 MG/300 ML (PMX) 300 ML IVPB ×2 (09:41→20:42)
[2019-03-08] MEDS: POTASSIUM CHLORIDE 100 ML IVPB ×2 (10:41→12:18)
[2019-03-08] MEDS: FAMOTIDINE 20 MG INJ IV (12:18)
[2019-03-09] MEDS: ALBUTEROL/IPRATROPIUM (NEB) 3 ML AMP HHN ×4 (01:38→20:49)
[2019-03-09] MEDS: SEVELAMER CARBONATE 0.8 GM PKT NGT ×3 (04:22→21:32)
[2019-03-09 05:40] LABS: ADD MAN DIFF? NO
[2019-03-09 05:48] LABS: ABNORMAL IP MESSAGE 1; BASOPHILS % 0.2 % (0.0-2.0); HEMATOCRIT 30.7 % (42.0-52.0); HEMOGLOBIN 10.2 g/dl (14.0-18.0); LYMPHOCYTES # 0.5 10^3/ul (0.8-2.9); LYMPHOCYTES % 9.7 % (15.0-51.0); MEAN CORPUSCULAR HEMOGLOBIN 31.2 pg (29.0-33.0); MEAN CORPUSCULAR HGB CONC 33.2 g/dl (32.0-37.0); MEAN CORPUSCULAR VOLUME 93.9 fl (82.0-101.0); MEAN PLATELET VOLUME 10.8 fl (7.4-10.4); MONOCYTE # 0.7 10^3/ul (0.3-0.9); MONOCYTES % 12.9 % (0.0-11.0); NEUTROPHIL # 3.9 10^3/ul (1.6-7.5); NEUTROPHILS % 76.6 % (39.0-77.0); PLATELET COUNT 211 10^3/UL (140-415); POSITIVE DIFF @See below; RED BLOOD COUNT 3.27 10^6/ul (4.70-6.10); RED CELL DISTRIBUTION WIDTH 14.9 % (11.5-14.5)
[2019-03-09] MEDS: LANSOPRAZOLE 30 MG CAP NGT ×2 (05:54→17:28)
[2019-03-09 06:27] LABS: ANION GAP 5 (5-13); BLOOD UREA NITROGEN 43 mg/dl (7-20); CALCIUM 7.5 mg/dl (8.4-10.2); CARBON DIOXIDE 28 mmol/L (21-31); CHLORIDE 109 mmol/L (97-110); CREATININE 1.99 mg/dl (0.61-1.24); GLUCOSE 130 mg/dl (70-220); PHOSPHORUS 4.1 mg/dl (2.5-4.9); POTASSIUM 3.9 mmol/L (3.5-5.1); SODIUM 142 mmol/L (135-144)
[2019-03-09] MEDS: DOCUSATE SODIUM 10 MG/ML (10ML CUP) NGT ×2 (09:00→21:33)
[2019-03-09] MEDS: MULTIVITAMINS 30 ML CUP NGT (09:00)
[2019-03-09] MEDS: FUROSEMIDE 40 MG INJ IV (09:19)
[2019-03-09] MEDS: METHYLPREDNISOLONE 40 MG INJ IV ×2 (09:19→21:32)
[2019-03-09] MEDS: LINEZOLID 600 MG/300 ML (PMX) 300 ML IVPB ×2 (09:19→21:54)
[2019-03-09] MEDS: CHLORHEXIDINE GLUCONATE 15 ML UD CUP MT ×2 (09:19→21:33)
[2019-03-09] MEDS: ZINC SULFATE 220 MG CAP NGT (09:20)
[2019-03-09] MEDS: ASPIRIN 300 MG SUPP PR (09:20)
[2019-03-09] MEDS: valACYclovir 500 MG TAB NGT ×2 (09:20→21:33)
[2019-03-09] MEDS: FAMOTIDINE 20 MG INJ IV (09:20)
[2019-03-09] MEDS: FOLIC ACID 1 MG TAB NGT (09:20)
[2019-03-09] MEDS: LACTOBACILLUS RHAMNOSUS CAP NGT ×2 (09:20→21:34)
[2019-03-09] MEDS: ASCORBIC ACID 500 MG TAB NGT (09:20)
[2019-03-09] MEDS: TRIAMCINOLONE ACET 0.1% 15 GM CR TOP ×2 (09:21→21:36)
[2019-03-09] MEDS: MUPIROCIN 2% 22 GM OINT TOP ×2 (09:21→21:36)
[2019-03-09] MEDS: BALSAM PERU/CASTOR OIL 60 GM TUBE TOP ×2 (09:21→21:36)
[2019-03-09] MEDS: PETROLATUM 5 GM OINT TOP ×2 (09:21→21:36)
[2019-03-09] MEDS: HEPARIN 5,000 UNIT/1 ML VIAL SC ×2 (09:26→21:43)
[2019-03-09 09:47] LABS: BAND NEUTROPHILS #M 0.3 10^3/ul (0.0-0.6); BAND NEUTROPHILS % (M) 7 % (0-4); BURR CELLS 1+ (0-0); GIANT THROMBO% (M) 2 % (0-0); LYMPHOCYTES #M 0.3 10^3/ul (0.8-2.9); LYMPHOCYTES % (M) 7 % (15-51); MONOCYTE #M 0.3 10^3/ul (0.3-0.9); MONOCYTES % (M) 7 % (0-11); OVALOCYTES 1+ (0-0); PLATELET ESTIMATE NORMAL; POIKILOCYTOSIS 1+ (0-0); RBC MORPHOLOGY COMMENT @See below; SEGMENTED NEUTROPHILS (M) % 79 % (39-77); WBC MORPHOLOGY COMMENT @See below
[2019-03-09] MEDS: LORAZEPAM 0.5 MG TAB PO (21:33)
[2019-03-10] MEDS: ALBUTEROL/IPRATROPIUM (NEB) 3 ML AMP HHN ×5 (01:23→21:06)
[2019-03-10] MEDS: SEVELAMER CARBONATE 0.8 GM PKT NGT ×3 (05:29→20:39)
[2019-03-10] MEDS: hydrALAzine 20 MG INJ IV (05:30)
[2019-03-10 06:19] LABS: ADD MAN DIFF? NO
[2019-03-10 06:24] LABS: ABNORMAL IP MESSAGE 1; HEMOGLOBIN 10.5 g/dl (14.0-18.0); LYMPHOCYTES # 0.4 10^3/ul (0.8-2.9); LYMPHOCYTES % 8.6 % (15.0-51.0); MEAN CORPUSCULAR HEMOGLOBIN 30.8 pg (29.0-33.0); MEAN CORPUSCULAR HGB CONC 31.8 g/dl (32.0-37.0); MEAN CORPUSCULAR VOLUME 96.8 fl (82.0-101.0); MEAN PLATELET VOLUME 11.2 fl (7.4-10.4); MONOCYTE # 0.3 10^3/ul (0.3-0.9); MONOCYTES % 5.9 % (0.0-11.0); NEUTROPHIL # 3.6 10^3/ul (1.6-7.5); NEUTROPHILS % 84.8 % (39.0-77.0); PLATELET COUNT 252 10^3/UL (140-415); POSITIVE DIFF @See below; RED BLOOD COUNT 3.41 10^6/ul (4.70-6.10); RED CELL DISTRIBUTION WIDTH 14.4 % (11.5-14.5)
[2019-03-10 06:24] LABS: WHITE BLOOD COUNT 4.2 10^3/ul (4.8-10.8)
[2019-03-10] MEDS: LANSOPRAZOLE 30 MG CAP NGT ×2 (06:24→17:30)
[2019-03-10 07:47] LABS: ANION GAP 5 (5-13); BLOOD UREA NITROGEN 45 mg/dl (7-20); CALCIUM 7.5 mg/dl (8.4-10.2); CARBON DIOXIDE 29 mmol/L (21-31); CHLORIDE 107 mmol/L (97-110); CREATININE 2.05 mg/dl (0.61-1.24); GLUCOSE 125 mg/dl (70-220); PHOSPHORUS 4.3 mg/dl (2.5-4.9); SODIUM 141 mmol/L (135-144)
[2019-03-10] MEDS: PETROLATUM 5 GM OINT TOP ×2 (08:58→20:40)
[2019-03-10] MEDS: BALSAM PERU/CASTOR OIL 60 GM TUBE TOP (08:58)
[2019-03-10] MEDS: TRIAMCINOLONE ACET 0.1% 15 GM CR TOP (08:58)
[2019-03-10] MEDS: LACTOBACILLUS RHAMNOSUS CAP NGT ×2 (08:58→20:40)
[2019-03-10] MEDS: METHYLPREDNISOLONE 40 MG INJ IV ×2 (08:59→20:38)
[2019-03-10] MEDS: ZINC SULFATE 220 MG CAP NGT (08:59)
[2019-03-10] MEDS: CHLORHEXIDINE GLUCONATE 15 ML UD CUP MT (08:59)
[2019-03-10] MEDS: FOLIC ACID 1 MG TAB NGT (08:59)
[2019-03-10] MEDS: LINEZOLID 600 MG/300 ML (PMX) 300 ML IVPB (08:59)
[2019-03-10] MEDS: ASPIRIN 300 MG SUPP PR (08:59)
[2019-03-10] MEDS: DOCUSATE SODIUM 10 MG/ML (10ML CUP) NGT (08:59)
[2019-03-10] MEDS: MULTIVITAMINS 30 ML CUP NGT (08:59)
[2019-03-10] MEDS: ASCORBIC ACID 500 MG TAB NGT (08:59)
[2019-03-10] MEDS: HEPARIN 5,000 UNIT/1 ML VIAL SC ×2 (09:03→20:43)
[2019-03-10] MEDS: FUROSEMIDE 40 MG INJ IV (11:29)
[2019-03-10] MEDS: MUPIROCIN 2% 22 GM OINT TOP (11:29)
[2019-03-10] MEDS: valACYclovir 500 MG TAB NGT ×2 (11:31→20:40)
[2019-03-10] MEDS: DOCUSATE SODIUM 10 MG/ML (10ML CUP) PO (20:40)
[2019-03-11] MEDS: CHLORHEXIDINE GLUCONATE 15 ML UD CUP MT ×3 (00:02→21:18)
[2019-03-11] MEDS: BALSAM PERU/CASTOR OIL 60 GM TUBE TOP ×3 (00:03→21:19)
[2019-03-11] MEDS: MUPIROCIN 2% 22 GM OINT TOP ×3 (00:03→21:20)
[2019-03-11] MEDS: TRIAMCINOLONE ACET 0.1% 15 GM CR TOP ×3 (00:03→21:19)
[2019-03-11] MEDS: ALBUTEROL/IPRATROPIUM (NEB) 3 ML AMP HHN ×4 (01:31→19:30)
[2019-03-11] MEDS: LANSOPRAZOLE 30 MG CAP NGT (05:28)
[2019-03-11] MEDS: SEVELAMER CARBONATE 0.8 GM PKT NGT ×2 (05:49→12:42)
[2019-03-11 07:22] LABS: ADD MAN DIFF? NO
[2019-03-11 07:24] LABS: BASOPHILS % 0.2 % (0.0-2.0); HEMATOCRIT 32.4 % (42.0-52.0); HEMOGLOBIN 10.5 g/dl (14.0-18.0); LYMPHOCYTES # 0.8 10^3/ul (0.8-2.9); LYMPHOCYTES % 13.6 % (15.0-51.0); MEAN CORPUSCULAR HEMOGLOBIN 30.2 pg (29.0-33.0); MEAN CORPUSCULAR HGB CONC 32.4 g/dl (32.0-37.0); MEAN CORPUSCULAR VOLUME 93.1 fl (82.0-101.0); MEAN PLATELET VOLUME 10.4 fl (7.4-10.4); MONOCYTES % 17.4 % (0.0-11.0); NEUTROPHIL # 3.9 10^3/ul (1.6-7.5); NEUTROPHILS % 67.6 % (39.0-77.0); PLATELET COUNT 291 10^3/UL (140-415); RED BLOOD COUNT 3.48 10^6/ul (4.70-6.10); RED CELL DISTRIBUTION WIDTH 14.7 % (11.5-14.5)
[2019-03-11 07:24] LABS: WHITE BLOOD COUNT 5.8 10^3/ul (4.8-10.8)
[2019-03-11 07:47] LABS: ANION GAP 5 (5-13); BLOOD UREA NITROGEN 41 mg/dl (7-20); CALCIUM 7.6 mg/dl (8.4-10.2); CARBON DIOXIDE 30 mmol/L (21-31); CHLORIDE 106 mmol/L (97-110); CREATININE 1.94 mg/dl (0.61-1.24); GLUCOSE 98 mg/dl (70-220); MAGNESIUM 1.9 mg/dl (1.7-2.5); PHOSPHORUS 4.1 mg/dl (2.5-4.9); POTASSIUM 3.7 mmol/L (3.5-5.1); SODIUM 141 mmol/L (135-144)
[2019-03-11 07:48] LABS: ALANINE AMINOTRANSFERASE 162 IU/L (13-69); ALBUMIN 2.4 g/dl (3.3-4.9); ALKALINE PHOSPHATASE 103 IU/L (42-121); ANION GAP 6 (5-13); ASPARTATE AMINO TRANSFERASE 73 IU/L (15-46); BILIRUBIN,INDIRECT 0.4 mg/dl (0-1.1); BILIRUBIN,TOTAL 0.4 mg/dl (0.2-1.3); BLOOD UREA NITROGEN 41 mg/dl (7-20); CALCIUM 7.6 mg/dl (8.4-10.2); CARBON DIOXIDE 30 mmol/L (21-31); CHLORIDE 106 mmol/L (97-110); GLUCOSE 95 mg/dl (70-220); POTASSIUM 3.8 mmol/L (3.5-5.1); SODIUM 142 mmol/L (135-144); TOTAL PROTEIN 4.8 g/dl (6.1-8.1)
[2019-03-11 07:51] LABS: B-TYPE NATRIURETIC PEPTIDE 13800 PG/ML (0-450)
[2019-03-11] MEDS: MULTIVITAMINS 30 ML CUP NGT (08:35)
[2019-03-11] MEDS: DOCUSATE SODIUM 10 MG/ML (10ML CUP) PO ×2 (08:35→21:00)
[2019-03-11] MEDS: LACTOBACILLUS RHAMNOSUS CAP NGT (08:36)
[2019-03-11] MEDS: FOLIC ACID 1 MG TAB NGT (08:36)
[2019-03-11] MEDS: valACYclovir 500 MG TAB NGT (08:36)
[2019-03-11] MEDS: ASCORBIC ACID 500 MG TAB NGT (08:36)
[2019-03-11] MEDS: ZINC SULFATE 220 MG CAP NGT (08:36)
[2019-03-11] MEDS: ESCITALOPRAM 10 MG TAB PO (08:36)
[2019-03-11] MEDS: METHYLPREDNISOLONE 40 MG INJ IV (08:37)
[2019-03-11] MEDS: ASPIRIN 300 MG SUPP PR (08:37)
[2019-03-11] MEDS: PETROLATUM 5 GM OINT TOP ×2 (08:48→21:20)
[2019-03-11] MEDS: HEPARIN 5,000 UNIT/1 ML VIAL SC ×2 (08:55→21:31)
[2019-03-11] MEDS ORDERED: MAGNESIUM HYDROXIDE 30ML CUP PO (13:00)
[2019-03-11] MEDS: SEVELAMER CARBONATE 800 MG TABLET PO (17:54)
[2019-03-11] MEDS: PANTOPRAZOLE (EC) 40 MG TAB PO (17:54)
[2019-03-11] MEDS ORDERED: LANSOPRAZOLE 30 MG CAP PO (18:00)
[2019-03-11] MEDS: DEXTROSE 5%-0.45% NACL 1,000 ML IV (18:00)
[2019-03-11] MEDS ORDERED: SEVELAMER CARBONATE 0.8 GM PKT PO (20:30)
[2019-03-11] MEDS: LACTOBACILLUS RHAMNOSUS CAP PO (21:00)
[2019-03-11] MEDS: valACYclovir 500 MG TAB PO (21:00)
[2019-03-11] MEDS: LORAZEPAM 2 MG INJ IV (21:23)
[2019-03-11] MEDS ORDERED: DOCUSATE SODIUM 10 MG/ML (10ML CUP) PO (23:00)
[2019-03-12] MEDS: ALBUTEROL/IPRATROPIUM (NEB) 3 ML AMP HHN ×5 (02:24→21:47)
[2019-03-12] MEDS: PANTOPRAZOLE (EC) 40 MG TAB PO ×2 (05:37→18:10)
[2019-03-12] MEDS: SEVELAMER CARBONATE 800 MG TABLET PO ×3 (07:39→18:10)
[2019-03-12] MEDS: hydrALAzine 20 MG INJ IV (08:26)
[2019-03-12] MEDS: METHYLPREDNISOLONE 40 MG INJ IV (08:27)
[2019-03-12] MEDS: HEPARIN 5,000 UNIT/1 ML VIAL SC ×2 (08:32→22:09)
[2019-03-12 08:39] LABS: WHITE BLOOD COUNT 8.3 10^3/ul (4.8-10.8)
[2019-03-12 08:39] LABS: ABNORMAL IP MESSAGE 1; HEMATOCRIT 34.6 % (42.0-52.0); HEMOGLOBIN 11.2 g/dl (14.0-18.0); MEAN CORPUSCULAR HEMOGLOBIN 30.6 pg (29.0-33.0); MEAN CORPUSCULAR HGB CONC 32.4 g/dl (32.0-37.0); MEAN CORPUSCULAR VOLUME 94.5 fl (82.0-101.0); MEAN PLATELET VOLUME 10.7 fl (7.4-10.4); PLATELET COUNT 377 10^3/UL (140-415); POSITIVE DIFF @See below; RED BLOOD COUNT 3.66 10^6/ul (4.70-6.10); RED CELL DISTRIBUTION WIDTH 14.9 % (11.5-14.5)
[2019-03-12 08:41] LABS: ADD MAN DIFF? YES
[2019-03-12] MEDS: ASCORBIC ACID 500 MG TAB NGT (09:00)
[2019-03-12] MEDS: MUPIROCIN 2% 22 GM OINT TOP ×2 (09:00→21:20)
[2019-03-12] MEDS: CHLORHEXIDINE GLUCONATE 15 ML UD CUP MT ×2 (09:00→21:18)
[2019-03-12] MEDS: ASPIRIN (EC) 81 MG TAB PO (09:00)
[2019-03-12] MEDS: FOLIC ACID 1 MG TAB PO (09:00)
[2019-03-12] MEDS: ESCITALOPRAM 10 MG TAB PO (09:00)
[2019-03-12] MEDS: LACTOBACILLUS RHAMNOSUS CAP PO ×2 (09:00→21:18)
[2019-03-12] MEDS: DOCUSATE SODIUM 10 MG/ML (10ML CUP) PO ×3 (09:00→21:18)
[2019-03-12] MEDS: ZINC SULFATE 220 MG CAP PO (09:00)
[2019-03-12] MEDS: MULTIVITAMINS 30 ML CUP NGT (09:00)
[2019-03-12] MEDS: valACYclovir 500 MG TAB PO ×2 (09:00→21:18)
[2019-03-12 09:01] LABS: ANION GAP 4 (5-13); BLOOD UREA NITROGEN 41 mg/dl (7-20); CALCIUM 7.8 mg/dl (8.4-10.2); CARBON DIOXIDE 31 mmol/L (21-31); CHLORIDE 107 mmol/L (97-110); CREATININE 1.89 mg/dl (0.61-1.24); GLUCOSE 90 mg/dl (70-220); POTASSIUM 3.7 mmol/L (3.5-5.1); SODIUM 142 mmol/L (135-144)
[2019-03-12 09:03] LABS: MAGNESIUM 2.1 mg/dl (1.7-2.5)
[2019-03-12 09:03] LABS: PHOSPHORUS 3.9 mg/dl (2.5-4.9)
[2019-03-12] MEDS: FUROSEMIDE 40 MG INJ IV (09:58)
[2019-03-12] MEDS: TRIAMCINOLONE ACET 0.1% 15 GM CR TOP ×2 (10:00→21:19)
[2019-03-12] MEDS: BALSAM PERU/CASTOR OIL 60 GM TUBE TOP ×2 (10:00→21:19)
[2019-03-12] MEDS: PETROLATUM 5 GM OINT TOP ×2 (10:00→21:18)
[2019-03-12 10:11] LABS: AADO2 Arterial 81.5 mmHg (7.0-24.0); Allen Test ACCEPTAB; Arterial Base Excess 2.7 mmol/L (-3.0-3); Arterial COHb 0.4 % (0.0-3.0); Arterial Fraction of Oxyhgb 91.4 % (93.0-99.0); Arterial MetHb 0.3 % (0.0-1.5); Arterial pCO2 40.7 mmhg (35-45); MODE NASAL CANNULA; Site Right Radial
[2019-03-12 10:24] LABS: ANISOCYTOSIS 1+ (0-0); BAND NEUTROPHILS #M 0.5 10^3/ul (0.0-0.6); BAND NEUTROPHILS % (M) 7 % (0-4); GIANT THROMBO% (M) 5 % (0-0); LYMPHOCYTES #M 0.6 10^3/ul (0.8-2.9); LYMPHOCYTES % (M) 8 % (15-51); METAMYELOCYTES %M 1 % (0-0); MONOCYTE #M 0.6 10^3/ul (0.3-0.9); MONOCYTES % (M) 8 % (0-11); MYELOCYTES #M 0.1 10^3/ul (0.0-0.0); MYELOCYTES % (M) 2 % (0-0); OVALOCYTES 1+ (0-0); PLATELET ESTIMATE NORMAL; POIKILOCYTOSIS 1+ (0-0); POLYCHROMASIA 1+ (0-0); SEG NEUT #M 6.2 10^3/ul (1.6-7.5); SEGMENTED NEUTROPHILS (M) % 74 % (39-77); SMUDGE%M 18 % (0-0)
[2019-03-12] MEDS ORDERED: ALPRAZOLAM 0.5 MG TAB PO (11:00)
[2019-03-12] MEDS: ALPRAZOLAM 0.5 MG TAB PO ×2 (11:53→21:20)
[2019-03-12] MEDS ORDERED: DILTIAZEM 25 MG INJ IV (16:00)
[2019-03-12] MEDS: DEXTROSE 5%-0.45% NACL 1,000 ML IV (16:34)
[2019-03-13] MEDS: ALBUTEROL/IPRATROPIUM (NEB) 3 ML AMP HHN ×7 (01:43→20:04)
[2019-03-13] MEDS: FUROSEMIDE 40 MG INJ IV (05:51)
[2019-03-13] MEDS: PANTOPRAZOLE (EC) 40 MG TAB PO ×2 (05:51→17:26)
[2019-03-13 06:30] LABS: ABNORMAL IP MESSAGE 1; HEMATOCRIT 32.1 % (42.0-52.0); HEMOGLOBIN 10.4 g/dl (14.0-18.0); MEAN CORPUSCULAR HEMOGLOBIN 30.7 pg (29.0-33.0); MEAN CORPUSCULAR HGB CONC 32.4 g/dl (32.0-37.0); MEAN CORPUSCULAR VOLUME 94.7 fl (82.0-101.0); MEAN PLATELET VOLUME 10.4 fl (7.4-10.4); PLATELET COUNT 329 10^3/UL (140-415); POSITIVE DIFF @See below; RED BLOOD COUNT 3.39 10^6/ul (4.70-6.10); RED CELL DISTRIBUTION WIDTH 15.2 % (11.5-14.5)
[2019-03-13 06:36] LABS: ADD MAN DIFF? YES
[2019-03-13 07:03] LABS: ALANINE AMINOTRANSFERASE 153 IU/L (13-69); ALBUMIN 2.5 g/dl (3.3-4.9); ALBUMIN/GLOBULIN RATIO 0.96; ALKALINE PHOSPHATASE 118 IU/L (42-121); ANION GAP 5 (5-13); ASPARTATE AMINO TRANSFERASE 63 IU/L (15-46); BILIRUBIN,INDIRECT 0.3 mg/dl (0-1.1); BILIRUBIN,TOTAL 0.3 mg/dl (0.2-1.3); BLOOD UREA NITROGEN 41 mg/dl (7-20); CALCIUM 7.7 mg/dl (8.4-10.2); CARBON DIOXIDE 33 mmol/L (21-31); CHLORIDE 105 mmol/L (97-110); GLUCOSE 103 mg/dl (70-220); POTASSIUM 3.6 mmol/L (3.5-5.1); SODIUM 143 mmol/L (135-144); TOTAL PROTEIN 5.1 g/dl (6.1-8.1)
[2019-03-13 08:19] LABS: ANISOCYTOSIS 1+ (0-0); BAND NEUTROPHILS #M 0.2 10^3/ul (0.0-0.6); BAND NEUTROPHILS % (M) 3 % (0-4); BASOPHILS % (M) 1 % (0-2); GIANT THROMBO% (M) 1 % (0-0); LYMPHOCYTES #M 0.8 10^3/ul (0.8-2.9); LYMPHOCYTES % (M) 10 % (15-51); METAMYELOCYTES #M 0.2 10^3/ul (0.0-0.0); METAMYELOCYTES %M 3 % (0-0); MONOCYTE #M 1.2 10^3/ul (0.3-0.9); MONOCYTES % (M) 15 % (0-11); MYELOCYTES % (M) 1 % (0-0); PLATELET ESTIMATE NORMAL; POLYCHROMASIA 1+ (0-0); PROMYELOCYTES % (M) 1 % (0-0); SEG NEUT #M 5.3 10^3/ul (1.6-7.5); SEGMENTED NEUTROPHILS (M) % 66 % (39-77); SMUDGE%M 39 % (0-0)
[2019-03-13 08:31] LABS: MAGNESIUM 2.1 mg/dl (1.7-2.5)
[2019-03-13 08:31] LABS: PHOSPHORUS 3.8 mg/dl (2.5-4.9)
[2019-03-13] MEDS: ESCITALOPRAM 10 MG TAB PO (08:59)
[2019-03-13] MEDS: ASPIRIN (EC) 81 MG TAB PO (08:59)
[2019-03-13] MEDS: ASCORBIC ACID 500 MG TAB NGT (08:59)
[2019-03-13] MEDS: SEVELAMER CARBONATE 800 MG TABLET PO ×3 (08:59→17:26)
[2019-03-13] MEDS: ZINC SULFATE 220 MG CAP PO (08:59)
[2019-03-13] MEDS: CHLORHEXIDINE GLUCONATE 15 ML UD CUP MT ×2 (08:59→21:32)
[2019-03-13] MEDS: DOCUSATE SODIUM 10 MG/ML (10ML CUP) PO ×2 (08:59→21:00)
[2019-03-13] MEDS: MULTIVITAMINS 30 ML CUP NGT (08:59)
[2019-03-13] MEDS: LACTOBACILLUS RHAMNOSUS CAP PO ×2 (08:59→21:32)
[2019-03-13] MEDS: valACYclovir 500 MG TAB PO ×2 (08:59→21:33)
[2019-03-13] MEDS: ALPRAZOLAM 0.5 MG TAB PO (08:59)
[2019-03-13] MEDS: METHYLPREDNISOLONE 40 MG INJ IV (08:59)
[2019-03-13] MEDS: MUPIROCIN 2% 22 GM OINT TOP ×2 (09:00→21:34)
[2019-03-13] MEDS: PETROLATUM 5 GM OINT TOP ×2 (09:00→21:32)
[2019-03-13] MEDS: BALSAM PERU/CASTOR OIL 60 GM TUBE TOP ×2 (09:00→21:34)
[2019-03-13] MEDS: TRIAMCINOLONE ACET 0.1% 15 GM CR TOP ×2 (09:00→21:34)
[2019-03-13] MEDS: FOLIC ACID 1 MG TAB PO (09:00)
[2019-03-13] MEDS: HEPARIN 5,000 UNIT/1 ML VIAL SC (09:09)
[2019-03-13] MEDS: DILTIAZEM 30 MG TAB NGT ×2 (14:00→21:34)
[2019-03-13] MEDS: DEXTROSE 5%-0.45% NACL 1,000 ML IV (17:25)
[2019-03-13] MEDS: APIXABAN 5 MG TABLET PO (21:33)
[2019-03-13] MEDS: ALPRAZOLAM 0.25 MG TAB PO (21:33)
[2019-03-14] MEDS: ALBUTEROL/IPRATROPIUM (NEB) 3 ML AMP HHN ×6 (00:26→21:52)
[2019-03-14 06:02] LABS: ADD MAN DIFF? NO
[2019-03-14 06:08] LABS: WHITE BLOOD COUNT 8.9 10^3/ul (4.8-10.8)
[2019-03-14 06:08] LABS: ABNORMAL IP MESSAGE 1; BASOPHIL # 0.1 10^3/ul (0.0-0.1); BASOPHILS % 0.6 % (0.0-2.0); EOSINOPHILS # 0.1 10^3/ul (0.0-0.5); EOSINOPHILS % 0.7 % (0.0-7.0); HEMATOCRIT 35.2 % (42.0-52.0); HEMOGLOBIN 11.3 g/dl (14.0-18.0); LYMPHOCYTES # 1.3 10^3/ul (0.8-2.9); LYMPHOCYTES % 15.1 % (15.0-51.0); MEAN CORPUSCULAR HEMOGLOBIN 30.9 pg (29.0-33.0); MEAN CORPUSCULAR HGB CONC 32.1 g/dl (32.0-37.0); MEAN CORPUSCULAR VOLUME 96.2 fl (82.0-101.0); MONOCYTES % 11.6 % (0.0-11.0); NEUTROPHIL # 5.4 10^3/ul (1.6-7.5); NEUTROPHILS % 60.8 % (39.0-77.0); PLATELET COUNT 344 10^3/UL (140-415); POSITIVE DIFF @See below; RED BLOOD COUNT 3.66 10^6/ul (4.70-6.10); RED CELL DISTRIBUTION WIDTH 15.1 % (11.5-14.5)
[2019-03-14] MEDS: FUROSEMIDE 40 MG INJ IV (06:22)
[2019-03-14] MEDS: hydrALAzine 20 MG INJ IV (06:22)
[2019-03-14] MEDS: PANTOPRAZOLE (EC) 40 MG TAB PO ×2 (06:23→17:44)
[2019-03-14] MEDS: DILTIAZEM 30 MG TAB NGT ×3 (06:23→21:31)
[2019-03-14 06:31] LABS: B-TYPE NATRIURETIC PEPTIDE 7200 PG/ML (0-450)
[2019-03-14 06:51] LABS: ANION GAP 3 (5-13); BLOOD UREA NITROGEN 36 mg/dl (7-20); CARBON DIOXIDE 35 mmol/L (21-31); CHLORIDE 105 mmol/L (97-110); GLUCOSE 99 mg/dl (70-220); MAGNESIUM 1.9 mg/dl (1.7-2.5); PHOSPHORUS 3.9 mg/dl (2.5-4.9); POTASSIUM 3.4 mmol/L (3.5-5.1); SODIUM 143 mmol/L (135-144)
[2019-03-14] MEDS ORDERED: POTASSIUM CHLORIDE (SR) 20 MEQ TAB PO (08:19)
[2019-03-14] MEDS: CHLORHEXIDINE GLUCONATE 15 ML UD CUP MT ×2 (08:20→21:14)
[2019-03-14] MEDS: BALSAM PERU/CASTOR OIL 60 GM TUBE TOP ×2 (08:20→21:17)
[2019-03-14] MEDS: DOCUSATE SODIUM 10 MG/ML (10ML CUP) PO ×2 (08:20→21:14)
[2019-03-14] MEDS: MUPIROCIN 2% 22 GM OINT TOP ×2 (08:20→21:16)
[2019-03-14] MEDS: MULTIVITAMINS 30 ML CUP NGT (08:20)
[2019-03-14] MEDS: PETROLATUM 5 GM OINT TOP ×2 (08:21→21:16)
[2019-03-14] MEDS: LACTOBACILLUS RHAMNOSUS CAP PO ×2 (08:22→21:14)
[2019-03-14] MEDS: FOLIC ACID 1 MG TAB PO (08:22)
[2019-03-14] MEDS: ZINC SULFATE 220 MG CAP PO (08:22)
[2019-03-14] MEDS: TRIAMCINOLONE ACET 0.1% 15 GM CR TOP ×2 (08:22→21:16)
[2019-03-14] MEDS: APIXABAN 5 MG TABLET PO ×2 (08:22→21:15)
[2019-03-14] MEDS: valACYclovir 500 MG TAB PO (08:22)
[2019-03-14] MEDS: SEVELAMER CARBONATE 800 MG TABLET PO ×3 (08:22→17:41)
[2019-03-14] MEDS: ESCITALOPRAM 10 MG TAB PO (08:23)
[2019-03-14] MEDS: ASCORBIC ACID 500 MG TAB NGT (08:23)
[2019-03-14] MEDS: ALPRAZOLAM 0.25 MG TAB PO ×2 (08:23→21:28)
[2019-03-14] MEDS: METHYLPREDNISOLONE 40 MG INJ IV (08:23)
[2019-03-14] MEDS: POTASSIUM CHLORIDE 20 MEQ POWDER FOR ORAL SOLN PO ×2 (09:00→10:09)
[2019-03-14 09:59] LABS: ANISOCYTOSIS 1+ (0-0); BAND NEUTROPHILS #M 0.1 10^3/ul (0.0-0.6); BAND NEUTROPHILS % (M) 2 % (0-4); LYMPHOCYTES #M 0.4 10^3/ul (0.8-2.9); LYMPHOCYTES % (M) 5 % (15-51); METAMYELOCYTES #M 0.1 10^3/ul (0.0-0.0); METAMYELOCYTES %M 2 % (0-0); MONOCYTE #M 1.1 10^3/ul (0.3-0.9); MONOCYTES % (M) 13 % (0-11); MYELOCYTES #M 0.7 10^3/ul (0.0-0.0); MYELOCYTES % (M) 8 % (0-0); OVALOCYTES 1+ (0-0); PLATELET ESTIMATE NORMAL; POLYCHROMASIA 3+ (0-0); REACTIVE LYMPHOCYTES% (M) 1 % (0-0); SEG NEUT #M 6.1 10^3/ul (1.6-7.5); SEGMENTED NEUTROPHILS (M) % 69 % (39-77); SMUDGE%M 14 % (0-0)
[2019-03-14] MEDS: POTASSIUM CHLORIDE 100 ML IVPB (14:09)
[2019-03-14] MEDS: ACETAMINOPHEN 325 MG TAB PO (16:24)
[2019-03-15] MEDS: ALBUTEROL/IPRATROPIUM (NEB) 3 ML AMP HHN ×5 (01:45→17:00)
[2019-03-15] MEDS: DILTIAZEM 30 MG TAB NGT ×2 (06:09→14:13)
[2019-03-15] MEDS: FUROSEMIDE 40 MG INJ IV (06:09)
[2019-03-15] MEDS: PANTOPRAZOLE (EC) 40 MG TAB PO (06:10)
[2019-03-15 08:42] LABS: ABNORMAL IP MESSAGE 1; HEMATOCRIT 35.8 % (42.0-52.0); HEMOGLOBIN 11.4 g/dl (14.0-18.0); MEAN CORPUSCULAR HEMOGLOBIN 30.9 pg (29.0-33.0); MEAN CORPUSCULAR HGB CONC 31.8 g/dl (32.0-37.0); MEAN PLATELET VOLUME 10.3 fl (7.4-10.4); PLATELET COUNT 333 10^3/UL (140-415); POSITIVE DIFF @See below; RED BLOOD COUNT 3.69 10^6/ul (4.70-6.10); RED CELL DISTRIBUTION WIDTH 15.1 % (11.5-14.5)
[2019-03-15 08:42] LABS: WHITE BLOOD COUNT 11.9 10^3/ul (4.8-10.8)
[2019-03-15 08:46] LABS: ADD MAN DIFF? YES
[2019-03-15] MEDS: MULTIVITAMINS 30 ML CUP NGT (09:05)
[2019-03-15] MEDS: DOCUSATE SODIUM 10 MG/ML (10ML CUP) PO (09:05)
[2019-03-15] MEDS: SEVELAMER CARBONATE 800 MG TABLET PO ×2 (09:05→12:05)
[2019-03-15] MEDS: CHLORHEXIDINE GLUCONATE 15 ML UD CUP MT (09:05)
[2019-03-15] MEDS: APIXABAN 5 MG TABLET PO (09:05)
[2019-03-15] MEDS: ASCORBIC ACID 500 MG TAB NGT (09:06)
[2019-03-15] MEDS: METHYLPREDNISOLONE 40 MG INJ IV (09:06)
[2019-03-15] MEDS: ESCITALOPRAM 10 MG TAB PO (09:06)
[2019-03-15] MEDS: LACTOBACILLUS RHAMNOSUS CAP PO (09:06)
[2019-03-15] MEDS: FOLIC ACID 1 MG TAB PO (09:06)
[2019-03-15] MEDS: SPIRONOLACTONE 25 MG TAB PO (09:06)
[2019-03-15] MEDS: ZINC SULFATE 220 MG CAP PO (09:06)
[2019-03-15 09:09] LABS: ANION GAP 5 (5-13); BLOOD UREA NITROGEN 37 mg/dl (7-20); CARBON DIOXIDE 35 mmol/L (21-31); CHLORIDE 102 mmol/L (97-110); CREATININE 1.76 mg/dl (0.61-1.24); GLUCOSE 116 mg/dl (70-220); POTASSIUM 3.9 mmol/L (3.5-5.1); SODIUM 142 mmol/L (135-144)
[2019-03-15 09:14] LABS: B-TYPE NATRIURETIC PEPTIDE 6030 PG/ML (0-450)
[2019-03-15] MEDS: PETROLATUM 5 GM OINT TOP (09:16)
[2019-03-15] MEDS: BALSAM PERU/CASTOR OIL 60 GM TUBE TOP (09:16)
[2019-03-15] MEDS: MUPIROCIN 2% 22 GM OINT TOP (09:16)
[2019-03-15] MEDS: TRIAMCINOLONE ACET 0.1% 15 GM CR TOP (09:17)
[2019-03-15] MEDS: ALPRAZOLAM 0.25 MG TAB PO (09:21)
[2019-03-15 09:48] LABS: ANISOCYTOSIS 1+ (0-0); BAND NEUTROPHILS #M 0.4 10^3/ul (0.0-0.6); BAND NEUTROPHILS % (M) 4 % (0-4); LYMPHOCYTES #M 0.2 10^3/ul (0.8-2.9); LYMPHOCYTES % (M) 2 % (15-51); METAMYELOCYTES #M 0.1 10^3/ul (0.0-0.0); METAMYELOCYTES %M 1 % (0-0); MONOCYTE #M 1.1 10^3/ul (0.3-0.9); MONOCYTES % (M) 10 % (0-11); MYELOCYTES #M 0.5 10^3/ul (0.0-0.0); MYELOCYTES % (M) 5 % (0-0); PLATELET ESTIMATE NORMAL; POIKILOCYTOSIS 1+ (0-0); PROMYELOCYTES #M 0.2 10^3/ul (0-0); PROMYELOCYTES % (M) 2 % (0-0); SEG NEUT #M 9.1 10^3/ul (1.6-7.5); SEGMENTED NEUTROPHILS (M) % 76 % (39-77); SMUDGE%M 6 % (0-0)
[2019-03-15] MEDS ORDERED: ONDANSETRON 4 MG INJ IV (15:06)
== END 2019-03-15 15:06 | disposition short-term general hospital (02) | DRG 870 ==
LOC: 6WM 03-07 11:38 → TEL 03-10 05:45 → BAR 03-15 15:06 → E/R 04:57 → ICU 02-14 14:26 → TEL 03-15 15:06 → 6WM 05:45
PROC: 0DB68ZX Excision of Stomach, Via Natural or Artificial Opening Endoscopic, Diagnostic (ICD-10-PCS; 2019-03-03 12:30)
PROC: 5A1955Z Respiratory Ventilation, Greater than 96 Consecutive Hours (ICD-10-PCS; principal; 2019-03-03 12:40)
PROC: 0BH17EZ Insertion of Endotracheal Airway into Trachea, Via Natural or Artificial Opening (ICD-10-PCS; 2019-03-03 12:40)
PROC: 5A09557 Assistance with Respiratory Ventilation, Greater than 96 Consecutive Hours, Continuous Positive Airway Pressure (ICD-10-PCS; 2019-03-03 12:40)
PROC: 0DBM8ZX Excision of Descending Colon, Via Natural or Artificial Opening Endoscopic, Diagnostic (ICD-10-PCS; 2019-03-03 12:40)
PROC: 02HV33Z Insertion of Infusion Device into Superior Vena Cava, Percutaneous Approach (ICD-10-PCS; 2019-03-03 12:40)
PROC: 30233N1 Transfusion of Nonautologous Red Blood Cells into Peripheral Vein, Percutaneous Approach (ICD-10-PCS; 2019-03-03 12:40)
DX: A41.9 Sepsis, unspecified organism (principal); J96.01 Acute respiratory failure with hypoxia; J18.9 Pneumonia, unspecified organism; G92 Toxic encephalopathy; J96.92 Respiratory failure, unspecified with hypercapnia; I50.33 Acute on chronic diastolic (congestive) heart failure; J44.0 Chronic obstructive pulmonary disease with (acute) lower respiratory infection; J44.1 Chronic obstructive pulmonary disease with (acute) exacerbation; N39.0 Urinary tract infection, site not specified; N17.9 Acute kidney failure, unspecified; I13.0 Hypertensive heart and chronic kidney disease with heart failure and stage 1 through stage 4 chronic kidney disease, or unspecified chronic kidney disease; E87.2 Acidosis; E87.0 Hyperosmolality and hypernatremia; G72.81 Critical illness myopathy; E46 Unspecified protein-calorie malnutrition; K92.1 Melena; J20.9 Acute bronchitis, unspecified; F32.9 Major depressive disorder, single episode, unspecified; I48.91 Unspecified atrial fibrillation; R33.9 Retention of urine, unspecified; Z96.0 Presence of urogenital implants; N18.9 Chronic kidney disease, unspecified; R65.20 Severe sepsis without septic shock; D64.9 Anemia, unspecified; E83.9 Disorder of mineral metabolism, unspecified; N40.0 Benign prostatic hyperplasia without lower urinary tract symptoms; D69.6 Thrombocytopenia, unspecified; Y95 Nosocomial condition; R53.83 Other fatigue; G62.9 Polyneuropathy, unspecified; J44.9 Chronic obstructive pulmonary disease, unspecified; R00.1 Bradycardia, unspecified; R19.7 Diarrhea, unspecified; I27.20 Pulmonary hypertension, unspecified; K13.70 Unspecified lesions of oral mucosa; K63.5 Polyp of colon; D12.4 Benign neoplasm of descending colon; K29.00 Acute gastritis without bleeding; M51.36 Other intervertebral disc degeneration, lumbar region
CPT/HCPCS: 36415; 36430; 36569; 36600; 71045; 76705; 76775; 76937; 80048; 80053; 80202; 81001; 81003; 82043; 82270; 82607; 82746; 82803; 83036; 83540; 83605; 83735; 83880; 84100; 84145; 84153; 84154; 84155; 84300; 84439; 84443; 84484; 85025; 85045; 85610; 86850; 86900; 86901; 86920; 87040-91; 87070; 87075; 87077; 87081; 87086; 87400; 88305; 88312; 89220; 92526; 92610; 93005; 93306; 94002; 94003; 94640; 94660; 94664; 94770; 96374; 97110; 97163; 97530; 99285-25

== ENCOUNTER 2019-04-05 17:18 | Inpatient (IN) | payer MEDICARE, OTHER ==
[~2019-04-05 17:18] MED LIST: ETOMIDATE 20 MG INJ
[2019-04-05] MEDS ORDERED: HYDROCODONE/APAP (5/325) TAB PO (18:30)
[2019-04-05] MEDS ORDERED: ACETAMINOPHEN 325 MG SUPP PR (18:30)
[2019-04-05] MEDS ORDERED: DILTIAZEM 25 MG INJ IV (18:30)
[2019-04-05] MEDS: TPN 1,000 ML IV (19:44)
[2019-04-05 19:52] LABS: WHITE BLOOD COUNT 21.3 10^3/ul (4.8-10.8)
[2019-04-05 19:52] LABS: ABNORMAL IP MESSAGE 1; HEMATOCRIT 32.9 % (42.0-52.0); MEAN CORPUSCULAR HEMOGLOBIN 30.7 pg (29.0-33.0); MEAN CORPUSCULAR HGB CONC 30.4 g/dl (32.0-37.0); MEAN CORPUSCULAR VOLUME 100.9 fl (82.0-101.0); MEAN PLATELET VOLUME 10.4 fl (7.4-10.4); NUCLEATED RED BLOOD CELLS% 0.8 /100WBC (0.0-0.0); PLATELET COUNT 219 10^3/UL (140-415); POSITIVE DIFF @See below; RED BLOOD COUNT 3.26 10^6/ul (4.70-6.10); RED CELL DISTRIBUTION WIDTH 16.2 % (11.5-14.5)
[2019-04-05 19:54] LABS: ADD MAN DIFF? YES
[2019-04-05 20:10] LABS: ANION GAP 7 (5-13); BLOOD UREA NITROGEN 87 mg/dl (7-20); CALCIUM 8.4 mg/dl (8.4-10.2); CARBON DIOXIDE 20 mmol/L (21-31); CHLORIDE 128 mmol/L (97-110); GLUCOSE 166 mg/dl (70-220); MAGNESIUM 2.2 mg/dl (1.7-2.5); PHOSPHORUS 3.2 mg/dl (2.5-4.9); POTASSIUM 3.6 mmol/L (3.5-5.1); SODIUM 155 mmol/L (135-144)
[2019-04-05] MEDS: *CONTINUE SAME TPN IV (20:31)
[2019-04-05] MEDS: METHYLPREDNISOLONE 125 MG INJ IV (20:35)
[2019-04-05] MEDS: LEVOFLOXACIN 250MG/D5W (PMX) 50 ML IVPB (20:35)
[2019-04-05 20:49] LABS: ANISOCYTOSIS 2+ (0-0); BURR CELLS 2+ (0-0); ERYTHROBLAST% (NRBC) (M) 1 % (0-0); GIANT THROMBO% (M) 4 % (0-0); LYMPHOCYTES #M 0.4 10^3/ul (0.8-2.9); LYMPHOCYTES % (M) 2 % (15-51); MONOCYTE #M 0.4 10^3/ul (0.3-0.9); MONOCYTES % (M) 2 % (0-11); PLATELET ESTIMATE NORMAL; POIKILOCYTOSIS 2+ (0-0); POLYCHROMASIA 1+ (0-0); SEGMENTED NEUTROPHILS (M) % 96 % (39-77); SMUDGE%M 5 % (0-0); TOXIC GRANULATION 2+ (0-0)
[2019-04-05 20:59] LABS: AADO2 Arterial 274.7 mmHg (7.0-24.0); Allen Test ACCEPTAB; Arterial Base Excess -5.3 mmol/L (-3.0-3); Arterial Blood Gas Oxygen Sat 95.6 mmHG (95.0-100.0); Arterial COHb 0.3 % (0.0-3.0); Arterial Fraction of Oxyhgb 94.9 % (93.0-99.0); Arterial HCO3 18.7 mmol/L (22.0-26.0); Arterial MetHb 0.4 % (0.0-1.5); Arterial pCO2 31.5 mmhg (35-45); Blood Gas IEPAP 15/8; MODE MASK - BIPAP; Site Right Radial
[2019-04-05] MEDS: APIXABAN 5 MG TABLET PO (21:00)
[2019-04-05] MEDS: ALPRAZOLAM 0.25 MG TAB PO (21:00)
[2019-04-05] MEDS: DILTIAZEM 30 MG TAB PO (21:06)
[2019-04-05] MEDS: MUPIROCIN 2% 22 GM OINT TOP (21:06)
[2019-04-05] MEDS ORDERED: PANTOPRAZOLE 40 MG INJ IV (22:00)
[2019-04-05] MEDS: ACCU-CHEK XX (22:00)
[2019-04-05] MEDS ORDERED: DEXTROSE 50% 50 ML SYRINGE IV ×2 (22:00)
[2019-04-05] MEDS: FLUCONAZOLE 100 MG/50 ML (PMX) 50 ML IVPB (22:33)
[2019-04-05] MEDS: HEPARIN 5,000 UNIT/1 ML VIAL SC (22:39)
[2019-04-05 23:02] LABS: ADD UMIC YES; UR ASCORBIC ACID 40 mg/dL (NEGATIVE); UR BACTERIA FEW /HPF (NONE SEEN); UR BILIRUBIN (Dip) NEGATIVE (NEGATIVE); UR BLOOD (Dip) NEGATIVE (NEGATIVE); UR CALCIUM OXALATE CRYSTAL FEW /HPF (NONE SEEN); UR CLARITY CLEAR (CLEAR); UR COLOR YELLOW (YELLOW); UR GLUCOSE (Dip) NEGATIVE (NEGATIVE); UR KETONES (Dip) NEGATIVE (NEGATIVE); UR LEUKOCYTE ESTERASE (Dip) NEGATIVE Leu/ul (NEGATIVE); UR NITRITE (Dip) NEGATIVE (NEGATIVE); UR RBC 1 /HPF (0-5); UR SPECIFIC GRAVITY (Dip) 1.018 (1.003-1.030); UR TOTAL PROTEIN (Dip) 1+ mg/dl (NEGATIVE); UR UROBILINOGEN (Dip) NEGATIVE (NEGATIVE); UR WBC 2 /HPF (0-5)
[2019-04-05] MEDS: DOXYCYCLINE 100 MG in SOD CHLORIDE 0.9% 250 ML IVPB (23:41)
[2019-04-06] MEDS: ACCU-CHEK XX ×6 (00:31→21:38)
[2019-04-06] MEDS: INSULIN ASPART [NOVOLOG] 3 ML PEN SC ×6 (00:31→21:44)
[2019-04-06] MEDS: LORAZEPAM 2 MG INJ IV (02:50)
[2019-04-06] MEDS: ALBUTEROL/IPRATROPIUM (NEB) 3 ML AMP HHN ×2 (02:54→08:38)
[2019-04-06 05:00] LABS: ADD MAN DIFF? NO
[2019-04-06 05:02] LABS: WHITE BLOOD COUNT 21.3 10^3/ul (4.8-10.8)
[2019-04-06 05:02] LABS: BASOPHIL # 0.1 10^3/ul (0.0-0.1); BASOPHILS % 0.5 % (0.0-2.0); HEMATOCRIT 32.7 % (42.0-52.0); LYMPHOCYTES # 0.6 10^3/ul (0.8-2.9); MEAN CORPUSCULAR HEMOGLOBIN 30.8 pg (29.0-33.0); MEAN CORPUSCULAR HGB CONC 30.6 g/dl (32.0-37.0); MEAN CORPUSCULAR VOLUME 100.6 fl (82.0-101.0); MEAN PLATELET VOLUME 10.8 fl (7.4-10.4); MONOCYTE # 0.4 10^3/ul (0.3-0.9); NEUTROPHIL # 19.6 10^3/ul (1.6-7.5); NEUTROPHILS % 91.9 % (39.0-77.0); NUCLEATED RED BLOOD CELLS # 0.1 10^3/ul (0.0-0.0); NUCLEATED RED BLOOD CELLS% 0.7 /100WBC (0.0-0.0); PLATELET COUNT 232 10^3/UL (140-415); RED BLOOD COUNT 3.25 10^6/ul (4.70-6.10); RED CELL DISTRIBUTION WIDTH 16.1 % (11.5-14.5)
[2019-04-06] MEDS: DILTIAZEM 30 MG TAB PO ×3 (05:14→21:35)
[2019-04-06] MEDS: PANTOPRAZOLE 40 MG INJ IV (05:19)
[2019-04-06 05:23] LABS: ALANINE AMINOTRANSFERASE 21 IU/L (13-69); ALBUMIN 2.3 g/dl (3.3-4.9); ALBUMIN/GLOBULIN RATIO 0.82; ALKALINE PHOSPHATASE 137 IU/L (42-121); ANION GAP 6 (5-13); ASPARTATE AMINO TRANSFERASE 22 IU/L (15-46); BILIRUBIN,INDIRECT 0.2 mg/dl (0-1.1); BILIRUBIN,TOTAL 0.2 mg/dl (0.2-1.3); BLOOD UREA NITROGEN 90 mg/dl (7-20); CALCIUM 8.1 mg/dl (8.4-10.2); CARBON DIOXIDE 22 mmol/L (21-31); CHLORIDE 129 mmol/L (97-110); CREATININE 1.62 mg/dl (0.61-1.24); GLUCOSE 169 mg/dl (70-220); LIPASE 457 U/L (23-300); POTASSIUM 3.9 mmol/L (3.5-5.1); SODIUM 157 mmol/L (135-144); TOTAL PROTEIN 5.1 g/dl (6.1-8.1)
[2019-04-06 05:27] LABS: PHOSPHORUS 3.4 mg/dl (2.5-4.9)
[2019-04-06 05:27] LABS: MAGNESIUM 2.1 mg/dl (1.7-2.5)
[2019-04-06 05:38] LABS: LACTIC ACID 2.2 mmol/L (0.5-2.0)
[2019-04-06 06:12] LABS: AMMONIA < 9 umol/l (9-30)
[2019-04-06] MEDS: METHYLPREDNISOLONE 125 MG INJ IV ×2 (09:15→21:37)
[2019-04-06] MEDS: HEPARIN 5,000 UNIT/1 ML VIAL SC ×2 (09:17→21:48)
[2019-04-06] MEDS: DOXYCYCLINE 100 MG in SOD CHLORIDE 0.9% 250 ML IVPB ×2 (09:25→21:36)
[2019-04-06] MEDS: BALSAM PERU/CASTOR OIL 60 GM TUBE TOP (09:28)
[2019-04-06] MEDS ORDERED: PROPOFOL 100 ML (09:56)
[2019-04-06] MEDS: MUPIROCIN 2% 22 GM OINT TOP ×2 (10:00→21:37)
[2019-04-06] MEDS: PROPOFOL 100 ML IV (10:44)
[2019-04-06] MEDS: TPN 1,000 ML IV (11:10)
[2019-04-06 11:34] LABS: LACTIC ACID 1.7 mmol/L (0.5-2.0)
[2019-04-06 12:09] LABS: AADO2 Arterial 204.1 mmHg (7.0-24.0); Allen Test ACCEPTAB; Arterial Base Excess -8.4 mmol/L (-3.0-3); Arterial Blood Gas Oxygen Sat 96.5 mmHG (95.0-100.0); Arterial COHb 0.3 % (0.0-3.0); Arterial Fraction of Oxyhgb 95.9 % (93.0-99.0); Arterial HCO3 18.8 mmol/L (22.0-26.0); Arterial MetHb 0.3 % (0.0-1.5); Arterial pCO2 45.3 mmhg (35-45); MODE VENT - AC; Site Right Radial
[2019-04-06] MEDS: ESCITALOPRAM 10 MG TAB PO (13:56)
[2019-04-06] MEDS: FOLIC ACID 1 MG TAB PO (13:56)
[2019-04-06] MEDS: ASCORBIC ACID 250 MG TAB PO (13:56)
[2019-04-06] MEDS: DIGOXIN 500 MCG INJ IV (13:57)
[2019-04-06] MEDS: MEROPENEM 1 GM/50ML(PMX) 50 ML IVPB ×2 (14:20→23:40)
[2019-04-06] MEDS: ALPRAZOLAM 0.25 MG TAB PO ×2 (14:20→21:00)
[2019-04-06 18:29] LABS: THYROID STIMULATING HORMONE 0.172 MIU/L (0.465-4.680)
[2019-04-06] MEDS ORDERED: DEXTROSE 5%-0.45% NACL 1,000 ML IV (20:00)
[2019-04-06 20:16] LABS: PROCALCITONIN 0.32 ng/mL (0.00-0.10)
[2019-04-06] MEDS: FLUCONAZOLE 100 MG/50 ML (PMX) 50 ML IVPB (21:36)
[2019-04-06] MEDS: DEXTROSE 5%-0.45% NACL 1,000 ML IV (23:41)
[2019-04-07] MEDS: PROPOFOL 100 ML IV ×2 (01:14→11:16)
[2019-04-07] MEDS: INSULIN ASPART [NOVOLOG] 3 ML PEN SC ×6 (01:22→20:20)
[2019-04-07] MEDS: ACCU-CHEK XX ×6 (02:00→22:00)
[2019-04-07 04:54] LABS: ABNORMAL IP MESSAGE 1; HEMATOCRIT 29.5 % (42.0-52.0); HEMOGLOBIN 9.1 g/dl (14.0-18.0); MEAN CORPUSCULAR HGB CONC 30.8 g/dl (32.0-37.0); MEAN CORPUSCULAR VOLUME 100.3 fl (82.0-101.0); MEAN PLATELET VOLUME 11.2 fl (7.4-10.4); NUCLEATED RED BLOOD CELLS% 0.5 /100WBC (0.0-0.0); PLATELET COUNT 181 10^3/UL (140-415); POSITIVE DIFF @See below; RED BLOOD COUNT 2.94 10^6/ul (4.70-6.10); RED CELL DISTRIBUTION WIDTH 16.3 % (11.5-14.5)
[2019-04-07 04:54] LABS: WHITE BLOOD COUNT 21.3 10^3/ul (4.8-10.8)
[2019-04-07 05:09] LABS: ADD MAN DIFF? YES
[2019-04-07 05:12] LABS: PHOSPHORUS 3.6 mg/dl (2.5-4.9)
[2019-04-07 05:13] LABS: ALANINE AMINOTRANSFERASE 22 IU/L (13-69); ALBUMIN 1.9 g/dl (3.3-4.9); ALBUMIN/GLOBULIN RATIO 0.79; ALKALINE PHOSPHATASE 144 IU/L (42-121); ANION GAP 7 (5-13); ASPARTATE AMINO TRANSFERASE 19 IU/L (15-46); BILIRUBIN,INDIRECT 0.1 mg/dl (0-1.1); BILIRUBIN,TOTAL 0.1 mg/dl (0.2-1.3); BLOOD UREA NITROGEN 96 mg/dl (7-20); CARBON DIOXIDE 19 mmol/L (21-31); CHLORIDE 131 mmol/L (97-110); CREATININE 1.98 mg/dl (0.61-1.24); GLUCOSE 121 mg/dl (70-220); INR 1.31; MAGNESIUM 2.2 mg/dl (1.7-2.5); POTASSIUM 4.2 mmol/L (3.5-5.1); PROTIME 16.4 Sec (11.9-14.9); PT RATIO 1.3; SODIUM 157 mmol/L (135-144); TOTAL PROTEIN 4.3 g/dl (6.1-8.1)
[2019-04-07 05:20] LABS: B-TYPE NATRIURETIC PEPTIDE 4340 PG/ML (0-450)
[2019-04-07 05:42] LABS: THYROID STIMULATING HORMONE 0.131 MIU/L (0.465-4.680)
[2019-04-07] MEDS: PANTOPRAZOLE 40 MG INJ IV ×2 (05:43→08:48)
[2019-04-07] MEDS: DILTIAZEM 30 MG TAB PO ×3 (05:44→22:00)
[2019-04-07 06:08] LABS: DIGOXIN 1.6 ng/ml (1.0-2.0)
[2019-04-07 08:09] LABS: ANISOCYTOSIS 1+ (0-0); BAND NEUTROPHILS #M 0.4 10^3/ul (0.0-0.6); BAND NEUTROPHILS % (M) 2 % (0-4); BURR CELLS 1+ (0-0); ERYTHROBLAST% (NRBC) (M) 1 % (0-0); LYMPHOCYTES #M 0.2 10^3/ul (0.8-2.9); LYMPHOCYTES % (M) 1 % (15-51); PLATELET ESTIMATE NORMAL; POIKILOCYTOSIS 1+ (0-0); POLYCHROMASIA 1+ (0-0); SEG NEUT #M 20.7 10^3/ul (1.6-7.5); SEGMENTED NEUTROPHILS (M) % 97 % (39-77); SMUDGE%M 66 % (0-0)
[2019-04-07] MEDS: ASCORBIC ACID 250 MG TAB PO (08:47)
[2019-04-07] MEDS: FOLIC ACID 1 MG TAB PO (08:47)
[2019-04-07] MEDS: ESCITALOPRAM 10 MG TAB PO (08:47)
[2019-04-07] MEDS: BALSAM PERU/CASTOR OIL 60 GM TUBE TOP (08:48)
[2019-04-07] MEDS: HEPARIN 5,000 UNIT/1 ML VIAL SC ×2 (08:49→20:20)
[2019-04-07] MEDS: MEROPENEM 1 GM/50ML(PMX) 50 ML IVPB ×2 (09:07→20:12)
[2019-04-07] MEDS: METHYLPREDNISOLONE 125 MG INJ IV (09:10)
[2019-04-07] MEDS: DOXYCYCLINE 100 MG in SOD CHLORIDE 0.9% 250 ML IVPB ×2 (09:10→20:25)
[2019-04-07] MEDS: MUPIROCIN 2% 22 GM OINT TOP ×2 (09:11→20:17)
[2019-04-07] MEDS: DEXTROSE 5% 1,000 ML IV (09:26)
[2019-04-07] MEDS: ALPRAZOLAM 0.25 MG TAB PO ×2 (09:27→20:24)
[2019-04-07] MEDS: MIDAZOLAM 1 MG/ML 2 ML INJ ×2 (11:37)
[2019-04-07] MEDS: FENTAnyl 50 MCG/ML VIAL ×3 (11:37)
[2019-04-07] MEDS ORDERED: ATROPINE 1 MG/10 ML SYRINGE (11:50)
[2019-04-07] MEDS: CEFAZOLIN 1 GM/50 ML (PMX) 50 ML IVPB (12:20)
[2019-04-07] MEDS: METHYLPREDNISOLONE 40 MG INJ IV (20:12)
[2019-04-07] MEDS: FLUCONAZOLE 100 MG/50 ML (PMX) 50 ML IVPB (20:25)
[2019-04-07 22:09] LABS: ADD UMIC NO; UR ASCORBIC ACID 40 mg/dL (NEGATIVE); UR BILIRUBIN (Dip) NEGATIVE (NEGATIVE); UR BLOOD (Dip) NEGATIVE (NEGATIVE); UR CLARITY CLEAR (CLEAR); UR COLOR YELLOW (YELLOW); UR GLUCOSE (Dip) NEGATIVE (NEGATIVE); UR KETONES (Dip) NEGATIVE (NEGATIVE); UR LEUKOCYTE ESTERASE (Dip) NEGATIVE Leu/ul (NEGATIVE); UR NITRITE (Dip) NEGATIVE (NEGATIVE); UR TOTAL PROTEIN (Dip) NEGATIVE (NEGATIVE); UR UROBILINOGEN (Dip) NEGATIVE (NEGATIVE)
[2019-04-07 22:27] LABS: CREATININE,URINE RANDOM 46.58 mg/dl (20-370)
[2019-04-07 22:35] LABS: SODIUM,URINE RANDOM < 13 mmol/L (30-90)
[2019-04-08] MEDS: INSULIN ASPART [NOVOLOG] 3 ML PEN SC ×6 (00:28→22:32)
[2019-04-08] MEDS: ACCU-CHEK XX ×6 (02:00→22:40)
[2019-04-08] MEDS: PROPOFOL 100 ML IV ×3 (03:02→22:30)
[2019-04-08] MEDS: DILTIAZEM 30 MG TAB PO ×3 (05:06→21:00)
[2019-04-08 05:28] LABS: ADD MAN DIFF? NO
[2019-04-08 05:33] LABS: WHITE BLOOD COUNT 21.9 10^3/ul (4.8-10.8)
[2019-04-08 05:33] LABS: ABNORMAL IP MESSAGE 1; BASOPHIL # 0.1 10^3/ul (0.0-0.1); BASOPHILS % 0.2 % (0.0-2.0); HEMATOCRIT 30.5 % (42.0-52.0); HEMOGLOBIN 9.6 g/dl (14.0-18.0); LYMPHOCYTES # 0.6 10^3/ul (0.8-2.9); LYMPHOCYTES % 2.6 % (15.0-51.0); MEAN CORPUSCULAR HEMOGLOBIN 31.3 pg (29.0-33.0); MEAN CORPUSCULAR HGB CONC 31.5 g/dl (32.0-37.0); MEAN CORPUSCULAR VOLUME 99.3 fl (82.0-101.0); MEAN PLATELET VOLUME 11.7 fl (7.4-10.4); MONOCYTE # 0.4 10^3/ul (0.3-0.9); MONOCYTES % 1.8 % (0.0-11.0); NEUTROPHIL # 20.3 10^3/ul (1.6-7.5); NEUTROPHILS % 92.8 % (39.0-77.0); NUCLEATED RED BLOOD CELLS # 0.1 10^3/ul (0.0-0.0); NUCLEATED RED BLOOD CELLS% 0.2 /100WBC (0.0-0.0); PLATELET COUNT 182 10^3/UL (140-415); POSITIVE DIFF @See below; RED BLOOD COUNT 3.07 10^6/ul (4.70-6.10); RED CELL DISTRIBUTION WIDTH 16.1 % (11.5-14.5)
[2019-04-08 06:19] LABS: PHOSPHORUS 4.5 mg/dl (2.5-4.9)
[2019-04-08 06:19] LABS: MAGNESIUM 2.2 mg/dl (1.7-2.5)
[2019-04-08 06:29] LABS: ALANINE AMINOTRANSFERASE 31 IU/L (13-69); ALBUMIN 2.1 g/dl (3.3-4.9); ALBUMIN/GLOBULIN RATIO 0.84; ALKALINE PHOSPHATASE 192 IU/L (42-121); ANION GAP 8 (5-13); ASPARTATE AMINO TRANSFERASE 45 IU/L (15-46); BILIRUBIN,INDIRECT 0.1 mg/dl (0-1.1); BILIRUBIN,TOTAL 0.1 mg/dl (0.2-1.3); BLOOD UREA NITROGEN 97 mg/dl (7-20); CARBON DIOXIDE 19 mmol/L (21-31); CHLORIDE 125 mmol/L (97-110); CREATININE 2.03 mg/dl (0.61-1.24); GLUCOSE 140 mg/dl (70-220); POTASSIUM 4.2 mmol/L (3.5-5.1); SODIUM 152 mmol/L (135-144); TOTAL PROTEIN 4.6 g/dl (6.1-8.1)
[2019-04-08] MEDS: ESCITALOPRAM 10 MG TAB PO (09:48)
[2019-04-08] MEDS: FOLIC ACID 1 MG TAB PO (09:48)
[2019-04-08] MEDS: ASCORBIC ACID 250 MG TAB PO (09:48)
[2019-04-08] MEDS: HEPARIN 5,000 UNIT/1 ML VIAL SC (09:51)
[2019-04-08] MEDS: BALSAM PERU/CASTOR OIL 60 GM TUBE TOP ×2 (09:52→22:33)
[2019-04-08] MEDS: MUPIROCIN 2% 22 GM OINT TOP ×2 (09:52→22:33)
[2019-04-08] MEDS: METHYLPREDNISOLONE 40 MG INJ IV ×2 (10:08→22:34)
[2019-04-08] MEDS: MEROPENEM 1 GM/50ML(PMX) 50 ML IVPB ×2 (10:09→22:36)
[2019-04-08] MEDS: ALPRAZOLAM 0.25 MG TAB PO ×2 (10:09→22:33)
[2019-04-08] MEDS: PANTOPRAZOLE 40 MG INJ IV (10:25)
[2019-04-08] MEDS: DOXYCYCLINE 100 MG in SOD CHLORIDE 0.9% 250 ML IVPB (10:36)
[2019-04-08 11:22] LABS: AADO2 Arterial 126.1 mmHg (7.0-24.0); Allen Test ACCEPTAB; Arterial Base Excess -8.8 mmol/L (-3.0-3); Arterial Blood Gas Oxygen Sat 95.3 mmHG (95.0-100.0); Arterial COHb 0.3 % (0.0-3.0); Arterial Fraction of Oxyhgb 94.4 % (93.0-99.0); Arterial HCO3 15.7 mmol/L (22.0-26.0); Arterial MetHb 0.6 % (0.0-1.5); Arterial pCO2 29.7 mmhg (35-45); Blood Gas PS 10; MODE VENT - CPAP; Site Right Radial
[2019-04-08] MEDS: FUROSEMIDE 40 MG INJ IV (13:46)
[2019-04-08] MEDS: DEXTROSE 5% 1,000 ML IV (15:48)
[2019-04-08] MEDS: INSULIN GLARGINE [LANTus] (100 UNITS/ML) SYG SC (18:14)
[2019-04-08] MEDS: APIXABAN 5 MG TABLET PO (22:33)
[2019-04-08] MEDS: FLUCONAZOLE 100 MG/50 ML (PMX) 50 ML IVPB (23:04)
[2019-04-09] MEDS: DEXTROSE 5% 1,000 ML IV (00:31)
[2019-04-09] MEDS: INSULIN ASPART [NOVOLOG] 3 ML PEN SC ×6 (00:40→21:24)
[2019-04-09] MEDS: ACCU-CHEK XX ×6 (02:00→21:17)
[2019-04-09 05:27] LABS: WHITE BLOOD COUNT 24.6 10^3/ul (4.8-10.8)
[2019-04-09 05:27] LABS: ABNORMAL IP MESSAGE 1; HEMATOCRIT 33.2 % (42.0-52.0); HEMOGLOBIN 10.4 g/dl (14.0-18.0); MEAN CORPUSCULAR HGB CONC 31.3 g/dl (32.0-37.0); MEAN CORPUSCULAR VOLUME 95.7 fl (82.0-101.0); MEAN PLATELET VOLUME 12.4 fl (7.4-10.4); NUCLEATED RED BLOOD CELLS% 0.3 /100WBC (0.0-0.0); PLATELET COUNT 205 10^3/UL (140-415); POSITIVE DIFF @See below; RED BLOOD COUNT 3.47 10^6/ul (4.70-6.10); RED CELL DISTRIBUTION WIDTH 15.9 % (11.5-14.5)
[2019-04-09 05:38] LABS: ADD MAN DIFF? YES
[2019-04-09] MEDS: FUROSEMIDE 40 MG INJ IV (05:38)
[2019-04-09] MEDS: LANSOPRAZOLE 30 MG CAP GTB (05:38)
[2019-04-09] MEDS: PROPOFOL 100 ML IV ×2 (05:39→17:22)
[2019-04-09 05:49] LABS: ANION GAP 7 (5-13)
[2019-04-09 06:50] LABS: BLOOD UREA NITROGEN 105 mg/dl (7-20); CALCIUM 7.7 mg/dl (8.4-10.2); CARBON DIOXIDE 18 mmol/L (21-31); CHLORIDE 121 mmol/L (97-110); GLUCOSE 204 mg/dl (70-220); SODIUM 146 mmol/L (135-144)
[2019-04-09] MEDS: MEROPENEM 1 GM/50ML(PMX) 50 ML IVPB ×2 (08:25→21:17)
[2019-04-09] MEDS: METHYLPREDNISOLONE 40 MG INJ IV ×2 (08:25→21:17)
[2019-04-09] MEDS: ESCITALOPRAM 10 MG TAB PO (08:25)
[2019-04-09] MEDS: ASCORBIC ACID 250 MG TAB PO (08:26)
[2019-04-09] MEDS: DILTIAZEM 30 MG TAB PO ×2 (08:26→21:17)
[2019-04-09] MEDS: FOLIC ACID 1 MG TAB PO (08:26)
[2019-04-09] MEDS: APIXABAN 5 MG TABLET PO ×2 (08:26→21:17)
[2019-04-09] MEDS: ALPRAZOLAM 0.25 MG TAB PO ×2 (08:47→21:17)
[2019-04-09] MEDS: MUPIROCIN 2% 22 GM OINT TOP ×2 (10:02→21:17)
[2019-04-09] MEDS: INSULIN GLARGINE [LANTus] (100 UNITS/ML) SYG SC (10:46)
[2019-04-09 11:02] LABS: BURR CELLS 1+ (0-0); ERYTHROBLAST% (NRBC) (M) 2 % (0-0); GIANT THROMBO% (M) 2 % (0-0); MONOCYTE #M 0.2 10^3/ul (0.3-0.9); MONOCYTES % (M) 1 % (0-11); MYELOCYTES #M 0.2 10^3/ul (0.0-0.0); MYELOCYTES % (M) 1 % (0-0); OVALOCYTES 1+ (0-0); PLATELET ESTIMATE NORMAL; POIKILOCYTOSIS 2+ (0-0); RBC MORPHOLOGY COMMENT @See below; SEGMENTED NEUTROPHILS (M) % 98 % (39-77); SMUDGE%M 6 % (0-0); WBC MORPHOLOGY COMMENT @See below
[2019-04-09] MEDS: FUROSEMIDE 20 MG INJ IV (13:12)
[2019-04-09] MEDS: FLUCONAZOLE 100 MG/50 ML (PMX) 50 ML IVPB (21:17)
[2019-04-10] MEDS: DEXTROSE 5% 1,000 ML IV
[2019-04-10] MEDS: INSULIN ASPART [NOVOLOG] 3 ML PEN SC ×6 (01:41→21:15)
[2019-04-10] MEDS: ACCU-CHEK XX ×6 (01:41→21:15)
[2019-04-10] MEDS: LANSOPRAZOLE 30 MG CAP GTB (05:04)
[2019-04-10 05:16] LABS: ADD MAN DIFF? NO
[2019-04-10 05:25] LABS: WHITE BLOOD COUNT 25.2 10^3/ul (4.8-10.8)
[2019-04-10 05:25] LABS: ABNORMAL IP MESSAGE 1; BASOPHIL # 0.1 10^3/ul (0.0-0.1); BASOPHILS % 0.3 % (0.0-2.0); HEMATOCRIT 31.4 % (42.0-52.0); HEMOGLOBIN 10.3 g/dl (14.0-18.0); LYMPHOCYTES # 0.6 10^3/ul (0.8-2.9); LYMPHOCYTES % 2.5 % (15.0-51.0); MEAN CORPUSCULAR HEMOGLOBIN 30.7 pg (29.0-33.0); MEAN CORPUSCULAR HGB CONC 32.8 g/dl (32.0-37.0); MEAN CORPUSCULAR VOLUME 93.5 fl (82.0-101.0); MEAN PLATELET VOLUME 13.1 fl (7.4-10.4); MONOCYTE # 0.6 10^3/ul (0.3-0.9); MONOCYTES % 2.4 % (0.0-11.0); NEUTROPHIL # 22.8 10^3/ul (1.6-7.5); NEUTROPHILS % 90.8 % (39.0-77.0); NUCLEATED RED BLOOD CELLS # 0.1 10^3/ul (0.0-0.0); NUCLEATED RED BLOOD CELLS% 0.2 /100WBC (0.0-0.0); PLATELET COUNT 173 10^3/UL (140-415); POSITIVE DIFF @See below; RED BLOOD COUNT 3.36 10^6/ul (4.70-6.10); RED CELL DISTRIBUTION WIDTH 15.8 % (11.5-14.5)
[2019-04-10] MEDS: PROPOFOL 100 ML IV ×2 (05:41→23:02)
[2019-04-10 05:59] LABS: ANION GAP 9 (5-13); BLOOD UREA NITROGEN 107 mg/dl (7-20); CALCIUM 7.9 mg/dl (8.4-10.2); CARBON DIOXIDE 17 mmol/L (21-31); CHLORIDE 117 mmol/L (97-110); CREATININE 2.03 mg/dl (0.61-1.24); GLUCOSE 197 mg/dl (70-220); POTASSIUM 4.2 mmol/L (3.5-5.1); SODIUM 143 mmol/L (135-144)
[2019-04-10] MEDS: METHYLPREDNISOLONE 40 MG INJ IV ×2 (09:41→21:07)
[2019-04-10] MEDS: MEROPENEM 1 GM/50ML(PMX) 50 ML IVPB ×2 (09:42→21:07)
[2019-04-10] MEDS: APIXABAN 5 MG TABLET PO ×2 (09:43→21:08)
[2019-04-10] MEDS: ESCITALOPRAM 10 MG TAB PO (09:43)
[2019-04-10] MEDS: FOLIC ACID 1 MG TAB PO (09:43)
[2019-04-10] MEDS: ASCORBIC ACID 250 MG TAB PO (09:43)
[2019-04-10] MEDS: MUPIROCIN 2% 22 GM OINT TOP ×2 (09:44→21:18)
[2019-04-10] MEDS: BALSAM PERU/CASTOR OIL 60 GM TUBE TOP (09:44)
[2019-04-10] MEDS: DILTIAZEM 30 MG TAB PO ×2 (09:44→21:00)
[2019-04-10] MEDS: ALPRAZOLAM 0.25 MG TAB PO ×2 (10:14→21:18)
[2019-04-10] MEDS: INSULIN GLARGINE [LANTus] (100 UNITS/ML) SYG SC (10:22)
[2019-04-10 15:19] LABS: PROCALCITONIN 0.23 ng/mL (0.00-0.10)
[2019-04-10] MEDS: FLUCONAZOLE 100 MG/50 ML (PMX) 50 ML IVPB (21:07)
[2019-04-11] MEDS: ACCU-CHEK XX ×6 (02:00→22:21)
[2019-04-11] MEDS: INSULIN ASPART [NOVOLOG] 3 ML PEN SC ×6 (03:11→21:49)
[2019-04-11] MEDS: LANSOPRAZOLE 30 MG CAP GTB (05:19)
[2019-04-11 05:20] LABS: AADO2 Arterial 59.9 mmHg (7.0-24.0); Allen Test ACCEPTAB; Arterial Base Excess -6.7 mmol/L (-3.0-3); Arterial Blood Gas Oxygen Sat 97.7 mmHG (95.0-100.0); Arterial COHb 0.1 % (0.0-3.0); Arterial Fraction of Oxyhgb 97.3 % (93.0-99.0); Arterial HCO3 17.1 mmol/L (22.0-26.0); Arterial MetHb 0.3 % (0.0-1.5); Arterial pCO2 29.2 mmhg (35-45); MODE VENT - AC; Site Right Radial
[2019-04-11] MEDS: DEXTROSE 5% 1,000 ML IV (05:52)
[2019-04-11 06:26] LABS: ADD MAN DIFF? NO
[2019-04-11 06:32] LABS: WHITE BLOOD COUNT 25.8 10^3/ul (4.8-10.8)
[2019-04-11 06:32] LABS: ABNORMAL IP MESSAGE 1; BASOPHIL # 0.1 10^3/ul (0.0-0.1); BASOPHILS % 0.3 % (0.0-2.0); HEMATOCRIT 30.4 % (42.0-52.0); HEMOGLOBIN 10.1 g/dl (14.0-18.0); LYMPHOCYTES # 0.6 10^3/ul (0.8-2.9); LYMPHOCYTES % 2.1 % (15.0-51.0); MEAN CORPUSCULAR HEMOGLOBIN 30.8 pg (29.0-33.0); MEAN CORPUSCULAR HGB CONC 33.2 g/dl (32.0-37.0); MEAN CORPUSCULAR VOLUME 92.7 fl (82.0-101.0); MEAN PLATELET VOLUME 13.3 fl (7.4-10.4); MONOCYTE # 0.7 10^3/ul (0.3-0.9); MONOCYTES % 2.6 % (0.0-11.0); NEUTROPHIL # 23.5 10^3/ul (1.6-7.5); NEUTROPHILS % 91.2 % (39.0-77.0); NUCLEATED RED BLOOD CELLS # 0.1 10^3/ul (0.0-0.0); NUCLEATED RED BLOOD CELLS% 0.3 /100WBC (0.0-0.0); PLATELET COUNT 171 10^3/UL (140-415); POSITIVE DIFF @See below; RED BLOOD COUNT 3.28 10^6/ul (4.70-6.10); RED CELL DISTRIBUTION WIDTH 15.9 % (11.5-14.5)
[2019-04-11 06:55] LABS: DIGOXIN 1.7 ng/ml (1.0-2.0)
[2019-04-11 07:02] LABS: MAGNESIUM 2.1 mg/dl (1.7-2.5)
[2019-04-11 07:12] LABS: ANION GAP 7 (5-13); BLOOD UREA NITROGEN 106 mg/dl (7-20); CALCIUM 7.8 mg/dl (8.4-10.2); CARBON DIOXIDE 18 mmol/L (21-31); CHLORIDE 116 mmol/L (97-110); CREATININE 1.83 mg/dl (0.61-1.24); GLUCOSE 178 mg/dl (70-220); POTASSIUM 4.7 mmol/L (3.5-5.1); SODIUM 141 mmol/L (135-144)
[2019-04-11] MEDS: FUROSEMIDE 40 MG INJ IV ×2 (08:32→10:00)
[2019-04-11] MEDS: METHYLPREDNISOLONE 40 MG INJ IV (08:32)
[2019-04-11] MEDS: MEROPENEM 1 GM/50ML(PMX) 50 ML IVPB ×2 (08:33→21:08)
[2019-04-11] MEDS: POLYETHYLENE GLYCOL 17 GM PACKET GTB (08:33)
[2019-04-11] MEDS: ASCORBIC ACID 250 MG TAB PO (08:34)
[2019-04-11] MEDS: ALPRAZOLAM 0.25 MG TAB PO ×2 (08:34→21:09)
[2019-04-11] MEDS: APIXABAN 5 MG TABLET PO ×2 (08:34→21:09)
[2019-04-11] MEDS: FOLIC ACID 1 MG TAB PO (08:34)
[2019-04-11] MEDS: BALSAM PERU/CASTOR OIL 60 GM TUBE TOP (08:35)
[2019-04-11] MEDS: MUPIROCIN 2% 22 GM OINT TOP ×2 (08:36→21:10)
[2019-04-11] MEDS: DILTIAZEM 30 MG TAB PO ×2 (08:46→21:00)
[2019-04-11] MEDS: INSULIN GLARGINE [LANTus] (100 UNITS/ML) SYG SC (09:16)
[2019-04-11] MEDS: ESCITALOPRAM 10 MG TAB PO (09:17)
[2019-04-11] MEDS: PROPOFOL 100 ML IV ×2 (10:30→23:23)
[2019-04-11] MEDS: FLUCONAZOLE 100 MG/50 ML (PMX) 50 ML IVPB (21:49)
[2019-04-12] MEDS: INSULIN ASPART [NOVOLOG] 3 ML PEN SC ×6 (01:00→20:18)
[2019-04-12] MEDS: ACCU-CHEK XX ×6 (01:08→20:18)
[2019-04-12 05:07] LABS: ADD MAN DIFF? NO
[2019-04-12 05:16] LABS: ABNORMAL IP MESSAGE 1; BASOPHIL # 0.1 10^3/ul (0.0-0.1); BASOPHILS % 0.3 % (0.0-2.0); HEMATOCRIT 30.6 % (42.0-52.0); HEMOGLOBIN 9.8 g/dl (14.0-18.0); LYMPHOCYTES # 0.7 10^3/ul (0.8-2.9); LYMPHOCYTES % 2.5 % (15.0-51.0); MEAN CORPUSCULAR HEMOGLOBIN 30.3 pg (29.0-33.0); MEAN CORPUSCULAR VOLUME 94.7 fl (82.0-101.0); MEAN PLATELET VOLUME 13.6 fl (7.4-10.4); MONOCYTE # 1.1 10^3/ul (0.3-0.9); MONOCYTES % 4.1 % (0.0-11.0); NEUTROPHIL # 23.2 10^3/ul (1.6-7.5); NEUTROPHILS % 89.2 % (39.0-77.0); NUCLEATED RED BLOOD CELLS # 0.1 10^3/ul (0.0-0.0); NUCLEATED RED BLOOD CELLS% 0.2 /100WBC (0.0-0.0); PLATELET COUNT 157 10^3/UL (140-415); POSITIVE DIFF @See below; RED BLOOD COUNT 3.23 10^6/ul (4.70-6.10)
[2019-04-12 05:16] LABS: WHITE BLOOD COUNT 26.1 10^3/ul (4.8-10.8)
[2019-04-12] MEDS: LANSOPRAZOLE 30 MG CAP GTB (05:34)
[2019-04-12 05:39] LABS: ALANINE AMINOTRANSFERASE 72 IU/L (13-69); ALBUMIN 1.9 g/dl (3.3-4.9); ALBUMIN/GLOBULIN RATIO 0.76; ALKALINE PHOSPHATASE 285 IU/L (42-121); ANION GAP 9 (5-13); ASPARTATE AMINO TRANSFERASE 58 IU/L (15-46); BILIRUBIN,INDIRECT 0.3 mg/dl (0-1.1); BILIRUBIN,TOTAL 0.3 mg/dl (0.2-1.3); BLOOD UREA NITROGEN 109 mg/dl (7-20); CALCIUM 7.8 mg/dl (8.4-10.2); CARBON DIOXIDE 20 mmol/L (21-31); CHLORIDE 114 mmol/L (97-110); GLUCOSE 115 mg/dl (70-220); LIPASE 650 U/L (23-300); POTASSIUM 4.9 mmol/L (3.5-5.1); SODIUM 143 mmol/L (135-144); TOTAL PROTEIN 4.4 g/dl (6.1-8.1)
[2019-04-12 05:43] LABS: PHOSPHORUS 6.9 mg/dl (2.5-4.9)
[2019-04-12 05:43] LABS: MAGNESIUM 2.1 mg/dl (1.7-2.5)
[2019-04-12 06:01] LABS: CREATININE 1.81 mg/dl (0.61-1.24)
[2019-04-12] MEDS: METOLAZONE 5 MG TAB PO (06:33)
[2019-04-12] MEDS: POLYETHYLENE GLYCOL 17 GM PACKET GTB (08:42)
[2019-04-12] MEDS: MEROPENEM 1 GM/50ML(PMX) 50 ML IVPB ×2 (08:49→20:18)
[2019-04-12] MEDS: METHYLPREDNISOLONE 40 MG INJ IV (08:50)
[2019-04-12] MEDS: FUROSEMIDE 40 MG INJ IV (08:51)
[2019-04-12] MEDS: DILTIAZEM 30 MG TAB PO ×2 (08:51→20:17)
[2019-04-12] MEDS: ASCORBIC ACID 250 MG TAB PO (08:53)
[2019-04-12] MEDS: FOLIC ACID 1 MG TAB PO (08:53)
[2019-04-12] MEDS: ESCITALOPRAM 10 MG TAB PO (08:54)
[2019-04-12] MEDS: APIXABAN 5 MG TABLET PO ×2 (08:54→20:18)
[2019-04-12] MEDS: MUPIROCIN 2% 22 GM OINT TOP ×2 (08:54→20:18)
[2019-04-12] MEDS: BALSAM PERU/CASTOR OIL 60 GM TUBE TOP (08:55)
[2019-04-12] MEDS: ALPRAZOLAM 0.25 MG TAB PO ×2 (09:07→20:17)
[2019-04-12] MEDS: PROPOFOL 100 ML IV ×2 (09:10→22:30)
[2019-04-12] MEDS: INSULIN GLARGINE [LANTus] (100 UNITS/ML) SYG SC (09:10)
[2019-04-12] MEDS: FLUCONAZOLE 100 MG/50 ML (PMX) 50 ML IVPB (22:18)
[2019-04-13] MEDS: ACCU-CHEK XX ×6 (02:07→21:18)
[2019-04-13] MEDS: INSULIN ASPART [NOVOLOG] 3 ML PEN SC ×6 (03:45→20:21)
[2019-04-13 05:07] LABS: ADD MAN DIFF? NO
[2019-04-13 05:12] LABS: ABNORMAL IP MESSAGE 1; BASOPHILS % 0.1 % (0.0-2.0); HEMATOCRIT 32.6 % (42.0-52.0); HEMOGLOBIN 10.7 g/dl (14.0-18.0); LYMPHOCYTES # 0.9 10^3/ul (0.8-2.9); LYMPHOCYTES % 3.3 % (15.0-51.0); MEAN CORPUSCULAR HEMOGLOBIN 30.8 pg (29.0-33.0); MEAN CORPUSCULAR HGB CONC 32.8 g/dl (32.0-37.0); MEAN CORPUSCULAR VOLUME 93.9 fl (82.0-101.0); MONOCYTE # 1.3 10^3/ul (0.3-0.9); MONOCYTES % 4.5 % (0.0-11.0); NEUTROPHIL # 24.4 10^3/ul (1.6-7.5); NEUTROPHILS % 87.6 % (39.0-77.0); NUCLEATED RED BLOOD CELLS # 0.1 10^3/ul (0.0-0.0); NUCLEATED RED BLOOD CELLS% 0.2 /100WBC (0.0-0.0); PLATELET COUNT 178 10^3/UL (140-415); POSITIVE DIFF @See below; RED BLOOD COUNT 3.47 10^6/ul (4.70-6.10); RED CELL DISTRIBUTION WIDTH 16.4 % (11.5-14.5)
[2019-04-13 05:12] LABS: WHITE BLOOD COUNT 27.8 10^3/ul (4.8-10.8)
[2019-04-13 05:42] LABS: DIGOXIN 1.5 ng/ml (1.0-2.0)
[2019-04-13 05:43] LABS: ANION GAP 6 (5-13); BLOOD UREA NITROGEN 111 mg/dl (7-20); CALCIUM 7.9 mg/dl (8.4-10.2); CARBON DIOXIDE 23 mmol/L (21-31); CHLORIDE 111 mmol/L (97-110); GLUCOSE 115 mg/dl (70-220); MAGNESIUM 2.3 mg/dl (1.7-2.5); PHOSPHORUS 7.5 mg/dl (2.5-4.9); POTASSIUM 4.7 mmol/L (3.5-5.1); SODIUM 140 mmol/L (135-144)
[2019-04-13 05:59] LABS: CREATININE 1.89 mg/dl (0.61-1.24)
[2019-04-13] MEDS: LANSOPRAZOLE 30 MG CAP GTB (06:00)
[2019-04-13] MEDS: METOLAZONE 5 MG TAB PO (07:00)
[2019-04-13] MEDS: POLYETHYLENE GLYCOL 17 GM PACKET GTB (08:18)
[2019-04-13] MEDS: DILTIAZEM 30 MG TAB PO ×2 (08:19→20:23)
[2019-04-13] MEDS: FUROSEMIDE 40 MG INJ IV (08:20)
[2019-04-13] MEDS: APIXABAN 5 MG TABLET PO ×2 (08:20→20:23)
[2019-04-13] MEDS: METHYLPREDNISOLONE 40 MG INJ IV (08:20)
[2019-04-13] MEDS: MEROPENEM 1 GM/50ML(PMX) 50 ML IVPB ×2 (08:20→20:22)
[2019-04-13] MEDS: ESCITALOPRAM 10 MG TAB PO (08:21)
[2019-04-13] MEDS: MUPIROCIN 2% 22 GM OINT TOP ×2 (08:21→20:35)
[2019-04-13] MEDS: ASCORBIC ACID 250 MG TAB PO (08:21)
[2019-04-13] MEDS: FOLIC ACID 1 MG TAB PO (08:21)
[2019-04-13] MEDS: BALSAM PERU/CASTOR OIL 60 GM TUBE TOP (08:21)
[2019-04-13] MEDS: ALPRAZOLAM 0.25 MG TAB PO ×2 (08:21→20:22)
[2019-04-13] MEDS: PROPOFOL 100 ML IV ×2 (08:22→22:30)
[2019-04-13] MEDS: INSULIN GLARGINE [LANTus] (100 UNITS/ML) SYG SC (08:39)
[2019-04-13 12:08] LABS: AADO2 Arterial 65.4 mmHg (7.0-24.0); Allen Test ACCEPTAB; Arterial Base Excess -4.2 mmol/L (-3.0-3); Arterial Blood Gas Oxygen Sat 97.4 mmHG (95.0-100.0); Arterial COHb 0 % (0.0-3.0); Arterial Fraction of Oxyhgb 97.1 % (93.0-99.0); Arterial HCO3 19.8 mmol/L (22.0-26.0); Arterial MetHb 0.3 % (0.0-1.5); Arterial pCO2 33.3 mmhg (35-45); Blood Gas PS 10; MODE VENT - CPAP; Site Right Radial
[2019-04-13] MEDS: ALBUTEROL/IPRATROPIUM (NEB) 3 ML AMP HHN ×2 (14:12→19:37)
[2019-04-13 16:01] LABS: ADD UMIC YES; UR ASCORBIC ACID NEGATIVE (NEGATIVE); UR BILIRUBIN (Dip) NEGATIVE (NEGATIVE); UR BLOOD (Dip) 2+ mg/dL (NEGATIVE); UR CALCIUM OXALATE CRYSTAL FEW /HPF (NONE SEEN); UR CLARITY CLOUDY (CLEAR); UR COLOR YELLOW (YELLOW); UR GLUCOSE (Dip) NEGATIVE (NEGATIVE); UR KETONES (Dip) NEGATIVE (NEGATIVE); UR LEUKOCYTE ESTERASE (Dip) NEGATIVE Leu/ul (NEGATIVE); UR MUCUS FEW /HPF (NONE SEEN); UR NITRITE (Dip) NEGATIVE (NEGATIVE); UR RBC 8 /HPF (0-5); UR SPECIFIC GRAVITY (Dip) 1.012 (1.003-1.030); UR TOTAL PROTEIN (Dip) NEGATIVE (NEGATIVE); UR UROBILINOGEN (Dip) NEGATIVE (NEGATIVE); UR WBC 4 /HPF (0-5)
[2019-04-13] MEDS: FLUCONAZOLE 100 MG/50 ML (PMX) 50 ML IVPB (21:18)
[2019-04-13 23:48] LABS: AADO2 Arterial 81.5 mmHg (7.0-24.0); Allen Test ACCEPTAB; Arterial Base Excess -4.6 mmol/L (-3.0-3); Arterial Blood Gas Oxygen Sat 99.1 mmHG (95.0-100.0); Arterial COHb 0.3 % (0.0-3.0); Arterial Fraction of Oxyhgb 98.4 % (93.0-99.0); Arterial HCO3 19.5 mmol/L (22.0-26.0); Arterial MetHb 0.4 % (0.0-1.5); Arterial pCO2 32.8 mmhg (35-45); Blood Gas IEPAP 15/5; Blood Gas PS 10; MODE MASK - BIPAP; Site Right Radial
[2019-04-14] MEDS: INSULIN ASPART [NOVOLOG] 3 ML PEN SC ×6 (00:14→20:46)
[2019-04-14] MEDS: ACCU-CHEK XX ×6 (02:00→21:02)
[2019-04-14 05:27] LABS: ADD MAN DIFF? NO
[2019-04-14 05:41] LABS: WHITE BLOOD COUNT 30.2 10^3/ul (4.8-10.8)
[2019-04-14 05:41] LABS: ABNORMAL IP MESSAGE 1; BASOPHIL # 0.1 10^3/ul (0.0-0.1); BASOPHILS % 0.4 % (0.0-2.0); HEMATOCRIT 38.7 % (42.0-52.0); HEMOGLOBIN 11.9 g/dl (14.0-18.0); LYMPHOCYTES % 3.1 % (15.0-51.0); MEAN CORPUSCULAR HEMOGLOBIN 30.2 pg (29.0-33.0); MEAN CORPUSCULAR HGB CONC 30.7 g/dl (32.0-37.0); MEAN CORPUSCULAR VOLUME 98.2 fl (82.0-101.0); MEAN PLATELET VOLUME 14.2 fl (7.4-10.4); MONOCYTE # 1.6 10^3/ul (0.3-0.9); MONOCYTES % 5.4 % (0.0-11.0); NEUTROPHIL # 26.2 10^3/ul (1.6-7.5); NEUTROPHILS % 86.7 % (39.0-77.0); NUCLEATED RED BLOOD CELLS% 0.1 /100WBC (0.0-0.0); PLATELET COUNT 157 10^3/UL (140-415); POSITIVE DIFF @See below; RED BLOOD COUNT 3.94 10^6/ul (4.70-6.10); RED CELL DISTRIBUTION WIDTH 17.2 % (11.5-14.5)
[2019-04-14] MEDS: LANSOPRAZOLE 30 MG CAP GTB (06:07)
[2019-04-14 06:15] LABS: ANION GAP 14 (5-13); BLOOD UREA NITROGEN 118 mg/dl (7-20); CALCIUM 7.5 mg/dl (8.4-10.2); CARBON DIOXIDE 17 mmol/L (21-31); CHLORIDE 112 mmol/L (97-110); GLUCOSE 109 mg/dl (70-220); MAGNESIUM 2.4 mg/dl (1.7-2.5); PHOSPHORUS 8.4 mg/dl (2.5-4.9); POTASSIUM 5.3 mmol/L (3.5-5.1); SODIUM 143 mmol/L (135-144)
[2019-04-14 06:30] LABS: CREATININE 1.47 mg/dl (0.61-1.24)
[2019-04-14] MEDS: POLYETHYLENE GLYCOL 17 GM PACKET GTB (08:29)
[2019-04-14] MEDS: DILTIAZEM 30 MG TAB PO ×2 (08:30→20:30)
[2019-04-14] MEDS: APIXABAN 5 MG TABLET PO ×2 (08:30→20:29)
[2019-04-14] MEDS: ESCITALOPRAM 10 MG TAB PO (08:31)
[2019-04-14] MEDS: ALPRAZOLAM 0.25 MG TAB PO ×2 (08:31→20:30)
[2019-04-14] MEDS: ASCORBIC ACID 250 MG TAB PO (08:31)
[2019-04-14] MEDS: MUPIROCIN 2% 22 GM OINT TOP ×2 (08:32→20:48)
[2019-04-14] MEDS: BALSAM PERU/CASTOR OIL 60 GM TUBE TOP (08:32)
[2019-04-14] MEDS: INSULIN GLARGINE [LANTus] (100 UNITS/ML) SYG SC (08:40)
[2019-04-14] MEDS: FOLIC ACID 1 MG TAB PO (08:40)
[2019-04-14] MEDS: PROPOFOL 100 ML IV ×2 (09:35→21:54)
[2019-04-14] MEDS: MEROPENEM 1 GM/50ML(PMX) 50 ML IVPB (09:39)
[2019-04-14] MEDS: SEVELAMER CARBONATE 0.8 GM PKT GTB ×2 (11:22→17:25)
[2019-04-14] MEDS: FLUCONAZOLE 100 MG TAB PO (13:00)
[2019-04-14 23:50] LABS: AADO2 Arterial 97.3 mmHg (7.0-24.0); Allen Test ACCEPTAB; Arterial Base Excess -6.7 mmol/L (-3.0-3); Arterial Blood Gas Oxygen Sat 92.8 mmHG (95.0-100.0); Arterial COHb 0.3 % (0.0-3.0); Arterial Fraction of Oxyhgb 92.2 % (93.0-99.0); Arterial HCO3 18.5 mmol/L (22.0-26.0); Arterial MetHb 0.4 % (0.0-1.5); Arterial pCO2 36.3 mmhg (35-45); Blood Gas IEPAP 15/5; MODE MASK - BIPAP; Site Right Radial
[2019-04-15] MEDS: INSULIN ASPART [NOVOLOG] 3 ML PEN SC ×6 (00:06→21:00)
[2019-04-15] MEDS: ACCU-CHEK XX ×6 (01:01→21:43)
[2019-04-15 05:13] LABS: ADD MAN DIFF? NO
[2019-04-15] MEDS: LANSOPRAZOLE 30 MG CAP GTB (06:15)
[2019-04-15] MEDS: DEXTROSE 5% 1,000 ML IV (06:16)
[2019-04-15 06:24] LABS: ABNORMAL IP MESSAGE 1; BASOPHIL # 0.2 10^3/ul (0.0-0.1); BASOPHILS % 0.4 % (0.0-2.0); HEMATOCRIT 38.1 % (42.0-52.0); HEMOGLOBIN 12.5 g/dl (14.0-18.0); LYMPHOCYTES # 0.9 10^3/ul (0.8-2.9); LYMPHOCYTES % 2.4 % (15.0-51.0); MEAN CORPUSCULAR HEMOGLOBIN 30.6 pg (29.0-33.0); MEAN CORPUSCULAR HGB CONC 32.8 g/dl (32.0-37.0); MEAN CORPUSCULAR VOLUME 93.4 fl (82.0-101.0); MEAN PLATELET VOLUME 14.3 fl (7.4-10.4); MONOCYTE # 1.5 10^3/ul (0.3-0.9); MONOCYTES % 3.9 % (0.0-11.0); NEUTROPHIL # 32.8 10^3/ul (1.6-7.5); NEUTROPHILS % 89.4 % (39.0-77.0); NUCLEATED RED BLOOD CELLS% 0.1 /100WBC (0.0-0.0); PLATELET COUNT 195 10^3/UL (140-415); POSITIVE DIFF @See below; RED BLOOD COUNT 4.08 10^6/ul (4.70-6.10)
[2019-04-15 06:24] LABS: WHITE BLOOD COUNT 36.8 10^3/ul (4.8-10.8)
[2019-04-15 07:46] LABS: ANION GAP 15 (5-13); BLOOD UREA NITROGEN 117 mg/dl (7-20); CALCIUM 8.1 mg/dl (8.4-10.2); CARBON DIOXIDE 16 mmol/L (21-31); CHLORIDE 111 mmol/L (97-110); GLUCOSE 75 mg/dl (70-220); MAGNESIUM 2.5 mg/dl (1.7-2.5); PHOSPHORUS 7.9 mg/dl (2.5-4.9); POTASSIUM 4.6 mmol/L (3.5-5.1); SODIUM 142 mmol/L (135-144)
[2019-04-15 07:52] LABS: CREATININE 1.65 mg/dl (0.61-1.24)
[2019-04-15] MEDS: ALPRAZOLAM 0.25 MG TAB PO ×2 (08:16→21:05)
[2019-04-15] MEDS: FLUCONAZOLE 100 MG TAB PO (08:41)
[2019-04-15] MEDS: FOLIC ACID 1 MG TAB PO (08:41)
[2019-04-15] MEDS: ESCITALOPRAM 10 MG TAB PO (08:41)
[2019-04-15] MEDS: APIXABAN 5 MG TABLET PO ×2 (08:41→21:06)
[2019-04-15] MEDS: ASCORBIC ACID 250 MG TAB PO (08:41)
[2019-04-15] MEDS: DILTIAZEM 30 MG TAB PO ×2 (08:42→21:06)
[2019-04-15] MEDS: POLYETHYLENE GLYCOL 17 GM PACKET GTB (08:42)
[2019-04-15] MEDS: SEVELAMER CARBONATE 0.8 GM PKT GTB ×3 (08:42→17:33)
[2019-04-15] MEDS: MUPIROCIN 2% 22 GM OINT TOP ×2 (08:43→21:06)
[2019-04-15] MEDS: BALSAM PERU/CASTOR OIL 60 GM TUBE TOP (08:43)
[2019-04-15] MEDS: PROPOFOL 100 ML IV ×2 (09:53→21:45)
[2019-04-15 10:03] LABS: AADO2 Arterial 197.4 mmHg (7.0-24.0); Allen Test ACCEPTAB; Arterial Base Excess -4.5 mmol/L (-3.0-3); Arterial COHb 0 % (0.0-3.0); Arterial Fraction of Oxyhgb 93.7 % (93.0-99.0); Arterial HCO3 20.7 mmol/L (22.0-26.0); Arterial MetHb 0.3 % (0.0-1.5); Arterial pCO2 38.5 mmhg (35-45); Blood Gas IEPAP 15/5; Blood Gas PS 10; MODE MASK - BIPAP; Site Right Radial
[2019-04-15] MEDS: FUROSEMIDE 40 MG INJ IV (10:08)
[2019-04-15] MEDS: ALBUMIN HUMAN 25% 100 ML IV ×3 (10:08→21:05)
[2019-04-15] MEDS: METOCLOPRAMIDE 10 MG INJ IV ×2 (11:57→18:50)
[2019-04-15] MEDS ORDERED: VANCOMYCIN IV PER PHARMACY XX (12:00)
[2019-04-15] MEDS: PIPER-TAZO 2.25 GM (PMX) 50 ML IVPB ×2 (13:21→21:43)
[2019-04-15] MEDS: SOD CHLORIDE 0.9% 500 ML IV (13:39)
[2019-04-15] MEDS: metroNIDAZOLE 500 MG/NS (PMX) 100 ML IVPB ×2 (13:57→21:43)
[2019-04-15] MEDS: SOD CHLORIDE 0.9% 1,000 ML IV (13:57)
[2019-04-15] MEDS: VANCOMYCIN HCL 1.75 GM in SOD CHLORIDE 0.9% 500 ML IVPB (15:04)
[2019-04-15] MEDS ORDERED: FUROSEMIDE 40 MG INJ IV (18:00)
[2019-04-16] MEDS: INSULIN ASPART [NOVOLOG] 3 ML PEN SC ×6 (01:00→20:40)
[2019-04-16] MEDS: METOCLOPRAMIDE 10 MG INJ IV ×4 (01:40→19:46)
[2019-04-16] MEDS: ACCU-CHEK XX (02:00)
[2019-04-16] MEDS: SOD CHLORIDE 0.9% 1,000 ML IV ×2 (03:57→22:57)
[2019-04-16 05:13] LABS: WHITE BLOOD COUNT 15.1 10^3/ul (4.8-10.8)
[2019-04-16 05:13] LABS: ABNORMAL IP MESSAGE 1; HEMATOCRIT 22.1 % (42.0-52.0); MEAN CORPUSCULAR HEMOGLOBIN 30.4 pg (29.0-33.0); MEAN CORPUSCULAR HGB CONC 31.7 g/dl (32.0-37.0); MEAN CORPUSCULAR VOLUME 96.1 fl (82.0-101.0); MEAN PLATELET VOLUME 14.4 fl (7.4-10.4); PLATELET COUNT 109 10^3/UL (140-415); POSITIVE DIFF @See below; RED CELL DISTRIBUTION WIDTH 17.3 % (11.5-14.5)
[2019-04-16] MEDS: PIPER-TAZO 2.25 GM (PMX) 50 ML IVPB ×3 (05:33→21:30)
[2019-04-16] MEDS: metroNIDAZOLE 500 MG/NS (PMX) 100 ML IVPB ×3 (05:33→22:01)
[2019-04-16] MEDS: LANSOPRAZOLE 30 MG CAP GTB (05:33)
[2019-04-16 05:38] LABS: ADD MAN DIFF? YES
[2019-04-16 07:19] LABS: WHITE BLOOD COUNT 14.7 10^3/ul (4.8-10.8)
[2019-04-16 07:19] LABS: HEMATOCRIT 22.2 % (42.0-52.0); HEMOGLOBIN 7.1 g/dl (14.0-18.0); MEAN CORPUSCULAR VOLUME 96.9 fl (82.0-101.0); MEAN PLATELET VOLUME 12.7 fl (7.4-10.4); PLATELET COUNT 103 10^3/UL (140-415); POSITIVE DIFF @See below; RED BLOOD COUNT 2.29 10^6/ul (4.70-6.10); RED CELL DISTRIBUTION WIDTH 17.2 % (11.5-14.5)
[2019-04-16 07:25] LABS: ADD MAN DIFF? YES
[2019-04-16 07:42] LABS: ANION GAP 11 (5-13); BLOOD UREA NITROGEN 104 mg/dl (7-20); CALCIUM 7.8 mg/dl (8.4-10.2); CARBON DIOXIDE 23 mmol/L (21-31); CHLORIDE 111 mmol/L (97-110); CREATININE 1.79 mg/dl (0.61-1.24); GLUCOSE 100 mg/dl (70-220); MAGNESIUM 2.3 mg/dl (1.7-2.5); PHOSPHORUS 6.8 mg/dl (2.5-4.9); POTASSIUM 3.2 mmol/L (3.5-5.1); SODIUM 145 mmol/L (135-144)
[2019-04-16 07:56] LABS: ANISOCYTOSIS 2+ (0-0); BAND NEUTROPHILS #M 2.1 10^3/ul (0.0-0.6); BAND NEUTROPHILS % (M) 14 % (0-4); BASOPHIL #M 0.1 10^3/ul (0.0-0.0); BASOPHILS % (M) 1 % (0-2); BURR CELLS 3+ (0-0); LYMPHOCYTES #M 0.3 10^3/ul (0.8-2.9); LYMPHOCYTES % (M) 2 % (15-51); MICROCYTOSIS 1+ (0-0); PLATELET ESTIMATE DECREASED; POIKILOCYTOSIS 3+ (0-0); POLYCHROMASIA 3+ (0-0); SEG NEUT #M 12.9 10^3/ul (1.6-7.5); SEGMENTED NEUTROPHILS (M) % 83 % (39-77); SMUDGE%M 2 % (0-0); TARGET CELLS 1+ (0-0)
[2019-04-16] MEDS: FUROSEMIDE 40 MG INJ IV (08:01)
[2019-04-16] MEDS: SEVELAMER CARBONATE 0.8 GM PKT GTB ×3 (08:01→19:46)
[2019-04-16 10:08] LABS: ANISOCYTOSIS 1+ (0-0); BAND NEUTROPHILS #M 0.5 10^3/ul (0.0-0.6); BAND NEUTROPHILS % (M) 4 % (0-4); BURR CELLS 1+ (0-0); LYMPHOCYTES #M 0.2 10^3/ul (0.8-2.9); LYMPHOCYTES % (M) 2 % (15-51); MONOCYTE #M 0.1 10^3/ul (0.3-0.9); MONOCYTES % (M) 1 % (0-11); OVALOCYTES 1+ (0-0); PLATELET ESTIMATE DECREASED; POIKILOCYTOSIS 1+ (0-0); POLYCHROMASIA 3+ (0-0); SEG NEUT #M 13.7 10^3/ul (1.6-7.5); SEGMENTED NEUTROPHILS (M) % 93 % (39-77); TARGET CELLS 1+ (0-0)
[2019-04-16] MEDS: ALPRAZOLAM 0.25 MG TAB PO ×2 (10:11→21:08)
[2019-04-16] MEDS: ESCITALOPRAM 10 MG TAB PO (10:11)
[2019-04-16] MEDS: POLYETHYLENE GLYCOL 17 GM PACKET GTB (10:11)
[2019-04-16] MEDS: FOLIC ACID 1 MG TAB PO (10:12)
[2019-04-16] MEDS: DILTIAZEM 30 MG TAB PO ×2 (10:12→21:00)
[2019-04-16] MEDS: ASCORBIC ACID 250 MG TAB PO (10:12)
[2019-04-16] MEDS: FLUCONAZOLE 100 MG TAB PO (10:12)
[2019-04-16] MEDS: APIXABAN 5 MG TABLET PO (10:13)
[2019-04-16] MEDS: BALSAM PERU/CASTOR OIL 60 GM TUBE TOP (10:14)
[2019-04-16] MEDS: MUPIROCIN 2% 22 GM OINT TOP ×2 (10:17→21:08)
[2019-04-16] MEDS: PROPOFOL 100 ML IV (10:21)
[2019-04-16] MEDS: POTASSIUM CHLORIDE 100 ML IVPB ×2 (11:57→14:14)
[2019-04-16] MEDS: LIDOCAINE 1% (MPF) 5 ML VIAL SC (14:20)
[2019-04-16] MEDS: FUROSEMIDE 20 MG INJ IV (16:12)
[2019-04-16 18:07] LABS: IMMEDIATE SPIN CROSSMATCH 1 2
[2019-04-16 21:15] LABS: HEMATOCRIT 33.5 % (42.0-52.0); HEMOGLOBIN 11.2 g/dl (14.0-18.0)
[2019-04-17] MEDS: METOCLOPRAMIDE 10 MG INJ IV ×4 (00:01→17:38)
[2019-04-17] MEDS: INSULIN ASPART [NOVOLOG] 3 ML PEN SC ×6 (00:59→21:00)
[2019-04-17] MEDS: VANCOMYCIN 1.5 GM/NS 250 ML 250 ML IVPB (02:31)
[2019-04-17] MEDS: ALBUTEROL/IPRATROPIUM (NEB) 3 ML AMP HHN ×2 (04:48→23:19)
[2019-04-17 05:19] LABS: WHITE BLOOD COUNT 17.7 10^3/ul (4.8-10.8)
[2019-04-17 05:19] LABS: ABNORMAL IP MESSAGE 1; HEMOGLOBIN 11.1 g/dl (14.0-18.0); MEAN CORPUSCULAR HEMOGLOBIN 30.3 pg (29.0-33.0); MEAN CORPUSCULAR HGB CONC 32.6 g/dl (32.0-37.0); MEAN CORPUSCULAR VOLUME 92.9 fl (82.0-101.0); MEAN PLATELET VOLUME 13.8 fl (7.4-10.4); NUCLEATED RED BLOOD CELLS% 0.1 /100WBC (0.0-0.0); PLATELET COUNT 104 10^3/UL (140-415); POSITIVE DIFF @See below; RED BLOOD COUNT 3.66 10^6/ul (4.70-6.10); RED CELL DISTRIBUTION WIDTH 17.2 % (11.5-14.5)
[2019-04-17 05:22] LABS: ADD MAN DIFF? YES
[2019-04-17] MEDS: PIPER-TAZO 2.25 GM (PMX) 50 ML IVPB ×3 (05:24→22:20)
[2019-04-17] MEDS: metroNIDAZOLE 500 MG/NS (PMX) 100 ML IVPB ×3 (05:25→22:21)
[2019-04-17] MEDS: LANSOPRAZOLE 30 MG CAP GTB (05:26)
[2019-04-17 05:45] LABS: ANION GAP 8 (5-13); BLOOD UREA NITROGEN 103 mg/dl (7-20); CALCIUM 7.9 mg/dl (8.4-10.2); CARBON DIOXIDE 27 mmol/L (21-31); CHLORIDE 109 mmol/L (97-110); CREATININE 1.64 mg/dl (0.61-1.24); GLUCOSE 118 mg/dl (70-220); MAGNESIUM 2.1 mg/dl (1.7-2.5); PHOSPHORUS 6.6 mg/dl (2.5-4.9); POTASSIUM 3.2 mmol/L (3.5-5.1); SODIUM 144 mmol/L (135-144)
[2019-04-17 07:21] LABS: ANISOCYTOSIS 1+ (0-0); BAND NEUTROPHILS #M 0.3 10^3/ul (0.0-0.6); BAND NEUTROPHILS % (M) 2 % (0-4); BURR CELLS 1+ (0-0); GIANT THROMBO% (M) 2 % (0-0); LYMPHOCYTES #M 0.3 10^3/ul (0.8-2.9); LYMPHOCYTES % (M) 2 % (15-51); MONOCYTE #M 0.1 10^3/ul (0.3-0.9); MONOCYTES % (M) 1 % (0-11); PLATELET ESTIMATE DECREASED; POIKILOCYTOSIS 1+ (0-0); POLYCHROMASIA 2+ (0-0); SEG NEUT #M 16.9 10^3/ul (1.6-7.5); SEGMENTED NEUTROPHILS (M) % 95 % (39-77)
[2019-04-17] MEDS: POTASSIUM CHLORIDE 20 MEQ POWDER FOR ORAL SOLN GTB (07:52)
[2019-04-17] MEDS: SEVELAMER CARBONATE 0.8 GM PKT GTB ×3 (07:52→17:37)
[2019-04-17] MEDS: FUROSEMIDE 40 MG INJ IV (07:52)
[2019-04-17] MEDS: ALPRAZOLAM 0.25 MG TAB PO ×2 (08:46→21:09)
[2019-04-17] MEDS: FLUCONAZOLE 100 MG TAB PO (08:46)
[2019-04-17] MEDS: FOLIC ACID 1 MG TAB PO (08:46)
[2019-04-17] MEDS: ESCITALOPRAM 10 MG TAB PO (08:46)
[2019-04-17] MEDS: MUPIROCIN 2% 22 GM OINT TOP ×2 (08:46→21:09)
[2019-04-17] MEDS: POLYETHYLENE GLYCOL 17 GM PACKET GTB (08:46)
[2019-04-17] MEDS: ASCORBIC ACID 250 MG TAB PO (08:46)
[2019-04-17] MEDS: BALSAM PERU/CASTOR OIL 60 GM TUBE TOP (08:47)
[2019-04-17] MEDS: DILTIAZEM 30 MG TAB PO ×2 (09:00→21:08)
[2019-04-17] MEDS ORDERED: BUMETANIDE 4 ML (14:08)
[2019-04-17] MEDS ORDERED: ALBUMIN HUMAN 25% 100 ML (14:08)
[2019-04-17] MEDS: ALBUMIN HUMAN 25% 100 ML IV ×2 (14:18→22:19)
[2019-04-17] MEDS: BUMETANIDE 1 MG INJ IV ×2 (14:21→22:19)
[2019-04-17] MEDS: POTASSIUM CHLORIDE (SR) 20 MEQ TAB PO ×2 (15:29→21:09)
[2019-04-18] MEDS: METOCLOPRAMIDE 10 MG INJ IV ×4 (00:22→17:56)
[2019-04-18] MEDS: INSULIN ASPART [NOVOLOG] 3 ML PEN SC ×5 (01:00→17:56)
[2019-04-18 04:56] LABS: AADO2 Arterial 217.8 mmHg (7.0-24.0); Allen Test ACCEPTAB; Arterial Base Excess -1.1 mmol/L (-3.0-3); Arterial Blood Gas Oxygen Sat 89.9 mmHG (95.0-100.0); Arterial COHb 0.7 % (0.0-3.0); Arterial Fraction of Oxyhgb 88.8 % (93.0-99.0); Arterial HCO3 27.5 mmol/L (22.0-26.0); Arterial MetHb 0.5 % (0.0-1.5); Blood Gas IEPAP 15/5; Blood Gas PS 10; MODE MASK - BIPAP; Site Right Radial
[2019-04-18 05:04] LABS: ADD MAN DIFF? NO
[2019-04-18 05:08] LABS: ABNORMAL IP MESSAGE 1; BASOPHILS % 0.2 % (0.0-2.0); EOSINOPHILS % 0.1 % (0.0-7.0); HEMATOCRIT 32.7 % (42.0-52.0); HEMOGLOBIN 10.7 g/dl (14.0-18.0); LYMPHOCYTES # 0.5 10^3/ul (0.8-2.9); LYMPHOCYTES % 2.5 % (15.0-51.0); MEAN CORPUSCULAR HEMOGLOBIN 30.7 pg (29.0-33.0); MEAN CORPUSCULAR HGB CONC 32.7 g/dl (32.0-37.0); MEAN CORPUSCULAR VOLUME 93.7 fl (82.0-101.0); MEAN PLATELET VOLUME 12.9 fl (7.4-10.4); MONOCYTE # 0.2 10^3/ul (0.3-0.9); MONOCYTES % 0.9 % (0.0-11.0); NEUTROPHIL # 18.8 10^3/ul (1.6-7.5); NUCLEATED RED BLOOD CELLS% 0.1 /100WBC (0.0-0.0); PLATELET COUNT 99 10^3/UL (140-415); POSITIVE DIFF @See below; RED BLOOD COUNT 3.49 10^6/ul (4.70-6.10); RED CELL DISTRIBUTION WIDTH 17.8 % (11.5-14.5)
[2019-04-18 05:08] LABS: WHITE BLOOD COUNT 19.8 10^3/ul (4.8-10.8)
[2019-04-18 05:51] LABS: ANION GAP 10 (5-13); BLOOD UREA NITROGEN 98 mg/dl (7-20); CALCIUM 8.3 mg/dl (8.4-10.2); CARBON DIOXIDE 29 mmol/L (21-31); CHLORIDE 109 mmol/L (97-110); CREATININE 1.65 mg/dl (0.61-1.24); GLUCOSE 130 mg/dl (70-220); MAGNESIUM 2.1 mg/dl (1.7-2.5); POTASSIUM 3.8 mmol/L (3.5-5.1); SODIUM 148 mmol/L (135-144)
[2019-04-18 05:51] LABS: LACTIC ACID 1.1 mmol/L (0.5-2.0)
[2019-04-18] MEDS: PIPER-TAZO 2.25 GM (PMX) 50 ML IVPB ×2 (05:59→13:58)
[2019-04-18] MEDS: metroNIDAZOLE 500 MG/NS (PMX) 100 ML IVPB ×2 (06:00→13:58)
[2019-04-18] MEDS: BUMETANIDE 1 MG INJ IV (06:01)
[2019-04-18] MEDS: LANSOPRAZOLE 30 MG CAP GTB (06:04)
[2019-04-18] MEDS ORDERED: ETOMIDATE 20 MG INJ (06:30)
[2019-04-18] MEDS: ALBUMIN HUMAN 25% 100 ML IV (07:04)
[2019-04-18] MEDS: METOLAZONE 5 MG TAB PO (07:09)
[2019-04-18 07:55] LABS: RETICULOCYTE RBC 3.51
[2019-04-18 07:55] LABS: RETICULOCYTE COUNT # 0.099 X10^6 (0.020-0.110); RETICULOCYTE COUNT % 2.8 % (0.5-1.5)
[2019-04-18 08:00] LABS: IRON 17 ug/dl (35-150)
[2019-04-18 08:09] LABS: % IRON SATURATION 14 % SAT (22-52); TOTAL IRON BINDING CAPACITY 124 ug/dl (241-421)
[2019-04-18 08:11] LABS: AADO2 Arterial 206.8 mmHg (7.0-24.0); Allen Test ACCEPTAB; Arterial Base Excess -0.2 mmol/L (-3.0-3); Arterial Blood Gas Oxygen Sat 99.2 mmHG (95.0-100.0); Arterial COHb 0.3 % (0.0-3.0); Arterial Fraction of Oxyhgb 98.3 % (93.0-99.0); Arterial MetHb 0.6 % (0.0-1.5); Arterial pCO2 49.1 mmhg (35-45); MODE VENT - AC; Site Right Radial
[2019-04-18] MEDS: POLYETHYLENE GLYCOL 17 GM PACKET GTB (09:00)
[2019-04-18] MEDS: DILTIAZEM 30 MG TAB PO ×2 (09:00→20:37)
[2019-04-18] MEDS: FLUCONAZOLE 100 MG TAB PO (09:06)
[2019-04-18] MEDS: ESCITALOPRAM 10 MG TAB PO (09:06)
[2019-04-18] MEDS: SEVELAMER CARBONATE 0.8 GM PKT GTB ×3 (09:07→17:56)
[2019-04-18] MEDS: ASCORBIC ACID 250 MG TAB PO (09:07)
[2019-04-18] MEDS: POTASSIUM CHLORIDE 20 MEQ POWDER FOR ORAL SOLN GTB ×2 (09:07→20:37)
[2019-04-18] MEDS: FOLIC ACID 1 MG TAB PO (09:08)
[2019-04-18] MEDS: ALPRAZOLAM 0.25 MG TAB PO ×2 (09:12→20:37)
[2019-04-18] MEDS: BALSAM PERU/CASTOR OIL 60 GM TUBE TOP (09:13)
[2019-04-18] MEDS: MUPIROCIN 2% 22 GM OINT TOP ×2 (09:13→20:38)
[2019-04-18 09:20] LABS: FOLATE > 20.0 ng/ml (2.8-20.0)
[2019-04-18] MEDS: IPRATROPIUM (HFA) 12.9 GM INHALER INH ×3 (09:44→19:17)
[2019-04-18] MEDS: ALBUTEROL HFA 8 GM INHALER INH ×3 (09:44→19:17)
[2019-04-18 13:54] LABS: OCCULT BLOOD STOOL NEGATIVE (NEGATIVE)
[2019-04-18 15:20] LABS: VANCOMYCIN,TROUGH 21.7 ug/ml (10.0-20.0)
[2019-04-19] MEDS: metroNIDAZOLE 500 MG/NS (PMX) 100 ML IVPB ×2 (00:01→05:28)
[2019-04-19] MEDS: METOCLOPRAMIDE 10 MG INJ IV ×5 (00:06→23:18)
[2019-04-19] MEDS ORDERED: VANCOMYCIN 1.5 GM/NS 250 ML 250 ML IVPB (01:00)
[2019-04-19] MEDS: IPRATROPIUM (HFA) 12.9 GM INHALER INH ×4 (01:42→19:46)
[2019-04-19] MEDS: ALBUTEROL HFA 8 GM INHALER INH ×4 (01:42→19:46)
[2019-04-19] MEDS: VANCOMYCIN 1.5 GM/NS 250 ML 250 ML IVPB (02:30)
[2019-04-19 04:54] LABS: ABNORMAL IP MESSAGE 1; HEMATOCRIT 29.3 % (42.0-52.0); HEMOGLOBIN 9.6 g/dl (14.0-18.0); MEAN CORPUSCULAR HEMOGLOBIN 30.5 pg (29.0-33.0); MEAN CORPUSCULAR HGB CONC 32.8 g/dl (32.0-37.0); MEAN PLATELET VOLUME 13.6 fl (7.4-10.4); PLATELET COUNT 82 10^3/UL (140-415); POSITIVE DIFF @See below; RED BLOOD COUNT 3.15 10^6/ul (4.70-6.10); RED CELL DISTRIBUTION WIDTH 17.4 % (11.5-14.5)
[2019-04-19 04:54] LABS: WHITE BLOOD COUNT 16.8 10^3/ul (4.8-10.8)
[2019-04-19 04:57] LABS: ADD MAN DIFF? YES
[2019-04-19] MEDS: PIPER-TAZO 2.25 GM (PMX) 50 ML IVPB ×4 (05:28→21:12)
[2019-04-19] MEDS: LANSOPRAZOLE 30 MG CAP GTB (05:28)
[2019-04-19 05:34] LABS: ALANINE AMINOTRANSFERASE 48 IU/L (13-69); ALBUMIN 2.4 g/dl (3.3-4.9); ALKALINE PHOSPHATASE 116 IU/L (42-121); ASPARTATE AMINO TRANSFERASE 30 IU/L (15-46); BILIRUBIN,INDIRECT 0.4 mg/dl (0-1.1); BILIRUBIN,TOTAL 0.6 mg/dl (0.2-1.3); TOTAL PROTEIN 4.2 g/dl (6.1-8.1)
[2019-04-19 05:40] LABS: ANION GAP 9 (5-13); BLOOD UREA NITROGEN 96 mg/dl (7-20); CALCIUM 8.1 mg/dl (8.4-10.2); CARBON DIOXIDE 30 mmol/L (21-31); CHLORIDE 109 mmol/L (97-110); CREATININE 1.61 mg/dl (0.61-1.24); GLUCOSE 119 mg/dl (70-220); MAGNESIUM 1.9 mg/dl (1.7-2.5); PHOSPHORUS 3.3 mg/dl (2.5-4.9); POTASSIUM 3.3 mmol/L (3.5-5.1); SODIUM 148 mmol/L (135-144)
[2019-04-19] MEDS: INSULIN ASPART [NOVOLOG] 3 ML PEN SC ×5 (06:00→23:17)
[2019-04-19 07:03] LABS: AADO2 Arterial 142.5 mmHg (7.0-24.0); Allen Test ACCEPTAB; Arterial Base Excess 2.1 mmol/L (-3.0-3); Arterial COHb 0.1 % (0.0-3.0); Arterial Fraction of Oxyhgb 93.5 % (93.0-99.0); Arterial HCO3 25.3 mmol/L (22.0-26.0); Arterial MetHb 0.4 % (0.0-1.5); Arterial pCO2 34.8 mmhg (35-45); MODE VENT - AC; Site Right Radial
[2019-04-19] MEDS: SEVELAMER CARBONATE 0.8 GM PKT GTB ×3 (07:46→18:31)
[2019-04-19] MEDS: METOLAZONE 5 MG TAB PO (07:46)
[2019-04-19 08:04] LABS: ANISOCYTOSIS 1+ (0-0); BAND NEUTROPHILS #M 0.3 10^3/ul (0.0-0.6); BAND NEUTROPHILS % (M) 2 % (0-4); LYMPHOCYTES #M 0.1 10^3/ul (0.8-2.9); LYMPHOCYTES % (M) 1 % (15-51); MONOCYTE #M 0.3 10^3/ul (0.3-0.9); MONOCYTES % (M) 2 % (0-11); PLATELET ESTIMATE DECREASED; POIKILOCYTOSIS 1+ (0-0); SEGMENTED NEUTROPHILS (M) % 95 % (39-77); SMUDGE%M 46 % (0-0)
[2019-04-19] MEDS: ASCORBIC ACID 250 MG TAB PO (08:52)
[2019-04-19] MEDS: ALPRAZOLAM 0.25 MG TAB PO ×2 (08:52→20:15)
[2019-04-19] MEDS: FOLIC ACID 1 MG TAB PO (08:52)
[2019-04-19] MEDS: MUPIROCIN 2% 22 GM OINT TOP ×2 (08:52→21:10)
[2019-04-19] MEDS: BALSAM PERU/CASTOR OIL 60 GM TUBE TOP (08:52)
[2019-04-19] MEDS: FLUCONAZOLE 100 MG TAB PO (08:52)
[2019-04-19] MEDS: ESCITALOPRAM 10 MG TAB PO (08:52)
[2019-04-19] MEDS: DILTIAZEM 30 MG TAB PO ×2 (08:53→20:16)
[2019-04-19] MEDS: SPIRONOLACTONE 25 MG TAB NGT (08:53)
[2019-04-19] MEDS: BUMETANIDE 1 MG INJ IV (08:54)
[2019-04-19] MEDS: POTASSIUM CHLORIDE 20 MEQ POWDER FOR ORAL SOLN GTB ×3 (08:54→20:15)
[2019-04-19] MEDS: CASPOFUNGIN 70 MG in SOD CHLORIDE 0.9% 250 ML IVPB (15:30)
[2019-04-20] MEDS: IPRATROPIUM (HFA) 12.9 GM INHALER INH ×4 (01:10→19:16)
[2019-04-20] MEDS: ALBUTEROL HFA 8 GM INHALER INH ×4 (01:10→19:17)
[2019-04-20] MEDS: hydrALAzine 20 MG INJ IV (04:19)
[2019-04-20] MEDS: PROPOFOL 100 ML IV ×4 (04:19→14:33)
[2019-04-20] MEDS: PIPER-TAZO 2.25 GM (PMX) 50 ML IVPB ×3 (05:27→21:57)
[2019-04-20] MEDS: LANSOPRAZOLE 30 MG CAP GTB (05:27)
[2019-04-20] MEDS: METOCLOPRAMIDE 10 MG INJ IV ×3 (05:27→18:53)
[2019-04-20] MEDS: INSULIN ASPART [NOVOLOG] 3 ML PEN SC ×3 (05:29→19:01)
[2019-04-20 06:15] LABS: WHITE BLOOD COUNT 12.4 10^3/ul (4.8-10.8)
[2019-04-20 06:15] LABS: ABNORMAL IP MESSAGE 1; HEMATOCRIT 31.3 % (42.0-52.0); HEMOGLOBIN 10.3 g/dl (14.0-18.0); MEAN CORPUSCULAR HEMOGLOBIN 30.4 pg (29.0-33.0); MEAN CORPUSCULAR HGB CONC 32.9 g/dl (32.0-37.0); MEAN CORPUSCULAR VOLUME 92.3 fl (82.0-101.0); PLATELET COUNT 72 10^3/UL (140-415); POSITIVE DIFF @See below; RED BLOOD COUNT 3.39 10^6/ul (4.70-6.10); RED CELL DISTRIBUTION WIDTH 17.3 % (11.5-14.5)
[2019-04-20 06:25] LABS: ADD MAN DIFF? YES
[2019-04-20 06:43] LABS: ANION GAP 10 (5-13); BLOOD UREA NITROGEN 99 mg/dl (7-20); CALCIUM 8.2 mg/dl (8.4-10.2); CARBON DIOXIDE 30 mmol/L (21-31); CHLORIDE 109 mmol/L (97-110); CREATININE 1.51 mg/dl (0.61-1.24); GLUCOSE 110 mg/dl (70-220); MAGNESIUM 1.9 mg/dl (1.7-2.5); PHOSPHORUS 2.9 mg/dl (2.5-4.9); POTASSIUM 3.7 mmol/L (3.5-5.1); SODIUM 149 mmol/L (135-144)
[2019-04-20] MEDS: SEVELAMER CARBONATE 0.8 GM PKT GTB ×3 (07:15→18:53)
[2019-04-20] MEDS: ACETAZOLAMIDE 500 MG INJ IV (07:34)
[2019-04-20 07:59] LABS: ANISOCYTOSIS 1+ (0-0); BAND NEUTROPHILS #M 0.6 10^3/ul (0.0-0.6); BAND NEUTROPHILS % (M) 5 % (0-4); BURR CELLS 2+ (0-0); EOSINOPHILS % (M) 2 % (0-7); GIANT THROMBO% (M) 2 % (0-0); LYMPHOCYTES #M 0.4 10^3/ul (0.8-2.9); LYMPHOCYTES % (M) 4 % (15-51); MICROCYTOSIS 1+ (0-0); PLATELET ESTIMATE DECREASED; POIKILOCYTOSIS 1+ (0-0); POLYCHROMASIA 1+ (0-0); SEG NEUT #M 11.1 10^3/ul (1.6-7.5); SEGMENTED NEUTROPHILS (M) % 89 % (39-77); SMUDGE%M 1 % (0-0)
[2019-04-20] MEDS: POTASSIUM CHLORIDE 20 MEQ POWDER FOR ORAL SOLN GTB ×2 (08:24→20:07)
[2019-04-20] MEDS: SPIRONOLACTONE 25 MG TAB NGT (08:24)
[2019-04-20] MEDS: ALPRAZOLAM 0.25 MG TAB PO ×2 (08:24→20:08)
[2019-04-20] MEDS: ESCITALOPRAM 10 MG TAB PO (08:24)
[2019-04-20] MEDS: FOLIC ACID 1 MG TAB PO (08:24)
[2019-04-20] MEDS: ASCORBIC ACID 250 MG TAB PO (08:24)
[2019-04-20] MEDS: DILTIAZEM 30 MG TAB PO ×2 (08:25→20:07)
[2019-04-20] MEDS: BALSAM PERU/CASTOR OIL 60 GM TUBE TOP (08:34)
[2019-04-20] MEDS: MUPIROCIN 2% 22 GM OINT TOP ×2 (08:35→20:08)
[2019-04-20] MEDS: CASPOFUNGIN 50 MG in SOD CHLORIDE 0.9% 250 ML IVPB (15:30)
[2019-04-21] MEDS: METOCLOPRAMIDE 10 MG INJ IV ×4 (00:33→18:27)
[2019-04-21] MEDS: ALBUTEROL HFA 8 GM INHALER INH ×4 (01:03→20:06)
[2019-04-21] MEDS: IPRATROPIUM (HFA) 12.9 GM INHALER INH ×4 (01:03→20:06)
[2019-04-21] MEDS: VANCOMYCIN 1.5 GM/NS 250 ML 250 ML IVPB (02:42)
[2019-04-21] MEDS: LANSOPRAZOLE 30 MG CAP GTB (05:18)
[2019-04-21 05:20] LABS: WHITE BLOOD COUNT 7.2 10^3/ul (4.8-10.8)
[2019-04-21 05:20] LABS: ABNORMAL IP MESSAGE 1; HEMATOCRIT 32.7 % (42.0-52.0); HEMOGLOBIN 10.4 g/dl (14.0-18.0); MEAN CORPUSCULAR HEMOGLOBIN 30.2 pg (29.0-33.0); MEAN CORPUSCULAR HGB CONC 31.8 g/dl (32.0-37.0); MEAN CORPUSCULAR VOLUME 95.1 fl (82.0-101.0); MEAN PLATELET VOLUME 13.5 fl (7.4-10.4); PLATELET COUNT 60 10^3/UL (140-415); POSITIVE DIFF @See below; RED BLOOD COUNT 3.44 10^6/ul (4.70-6.10); RED CELL DISTRIBUTION WIDTH 17.6 % (11.5-14.5)
[2019-04-21 05:44] LABS: ANION GAP 4 (5-13); BLOOD UREA NITROGEN 91 mg/dl (7-20); CALCIUM 8.4 mg/dl (8.4-10.2); CARBON DIOXIDE 33 mmol/L (21-31); CHLORIDE 106 mmol/L (97-110); CREATININE 1.69 mg/dl (0.61-1.24); GLUCOSE 103 mg/dl (70-220); MAGNESIUM 1.9 mg/dl (1.7-2.5); PHOSPHORUS 3.7 mg/dl (2.5-4.9); SODIUM 143 mmol/L (135-144)
[2019-04-21] MEDS: INSULIN ASPART [NOVOLOG] 3 ML PEN SC ×4 (05:46→18:00)
[2019-04-21] MEDS: PIPER-TAZO 2.25 GM (PMX) 50 ML IVPB ×3 (05:55→21:18)
[2019-04-21 06:10] LABS: ADD MAN DIFF? YES
[2019-04-21] MEDS: SEVELAMER CARBONATE 0.8 GM PKT GTB ×3 (06:42→18:27)
[2019-04-21 07:51] LABS: ANISOCYTOSIS 1+ (0-0); BAND NEUTROPHILS #M 1.2 10^3/ul (0.0-0.6); BAND NEUTROPHILS % (M) 18 % (0-4); BURR CELLS 1+ (0-0); EOSINOPHILS % (M) 1 % (0-7); GIANT THROMBO% (M) 2 % (0-0); LYMPHOCYTES #M 0.3 10^3/ul (0.8-2.9); LYMPHOCYTES % (M) 5 % (15-51); MONOCYTES % (M) 1 % (0-11); PLATELET ESTIMATE SIG DECREASED; POIKILOCYTOSIS 2+ (0-0); POLYCHROMASIA 3+ (0-0); SEG NEUT #M 5.5 10^3/ul (1.6-7.5); SEGMENTED NEUTROPHILS (M) % 75 % (39-77); SMUDGE%M 3 % (0-0); TARGET CELLS 1+ (0-0)
[2019-04-21] MEDS: DILTIAZEM 30 MG TAB PO ×2 (09:00→20:35)
[2019-04-21] MEDS: PROPOFOL 100 ML IV ×2 (10:10→19:30)
[2019-04-21] MEDS: POTASSIUM CHLORIDE 20 MEQ POWDER FOR ORAL SOLN GTB ×2 (10:10→21:18)
[2019-04-21] MEDS: ESCITALOPRAM 10 MG TAB PO (10:11)
[2019-04-21] MEDS: SPIRONOLACTONE 25 MG TAB NGT (10:11)
[2019-04-21] MEDS: ASCORBIC ACID 250 MG TAB PO (10:11)
[2019-04-21] MEDS: FOLIC ACID 1 MG TAB PO (10:11)
[2019-04-21] MEDS: BALSAM PERU/CASTOR OIL 60 GM TUBE TOP (10:12)
[2019-04-21] MEDS: MUPIROCIN 2% 22 GM OINT TOP ×2 (10:12→21:18)
[2019-04-21] MEDS: ACETAZOLAMIDE 500 MG INJ IV (10:15)
[2019-04-21] MEDS: ALPRAZOLAM 0.25 MG TAB PO ×2 (10:59→20:36)
[2019-04-21] MEDS: morphine 2 MG INJ IV (11:00)
[2019-04-21 15:06] LABS: HIV 1&2 ANTIBODY NEGATIVE (NEGATIVE)
[2019-04-21] MEDS: CASPOFUNGIN 50 MG in SOD CHLORIDE 0.9% 250 ML IVPB (15:35)
[2019-04-22] MEDS: METOCLOPRAMIDE 10 MG INJ IV ×4 (00:25→17:34)
[2019-04-22] MEDS: ALBUTEROL HFA 8 GM INHALER INH ×4 (01:21→21:03)
[2019-04-22] MEDS: IPRATROPIUM (HFA) 12.9 GM INHALER INH ×4 (01:21→21:03)
[2019-04-22 04:59] LABS: ADD MAN DIFF? NO
[2019-04-22 05:02] LABS: WHITE BLOOD COUNT 6.7 10^3/ul (4.8-10.8)
[2019-04-22 05:02] LABS: ABNORMAL IP MESSAGE 1; BASOPHILS % 0.1 % (0.0-2.0); EOSINOPHILS # 0.3 10^3/ul (0.0-0.5); HEMATOCRIT 35.3 % (42.0-52.0); HEMOGLOBIN 10.9 g/dl (14.0-18.0); LYMPHOCYTES # 0.5 10^3/ul (0.8-2.9); LYMPHOCYTES % 7.6 % (15.0-51.0); MEAN CORPUSCULAR HEMOGLOBIN 29.9 pg (29.0-33.0); MEAN CORPUSCULAR HGB CONC 30.9 g/dl (32.0-37.0); MEAN PLATELET VOLUME 14.1 fl (7.4-10.4); MONOCYTE # 0.1 10^3/ul (0.3-0.9); MONOCYTES % 1.5 % (0.0-11.0); NEUTROPHIL # 5.7 10^3/ul (1.6-7.5); NEUTROPHILS % 86.2 % (39.0-77.0); PLATELET COUNT 59 10^3/UL (140-415); POSITIVE DIFF @See below; RED BLOOD COUNT 3.64 10^6/ul (4.70-6.10); RED CELL DISTRIBUTION WIDTH 17.6 % (11.5-14.5)
[2019-04-22 05:34] LABS: ANION GAP 5 (5-13); BLOOD UREA NITROGEN 91 mg/dl (7-20); CALCIUM 8.4 mg/dl (8.4-10.2); CARBON DIOXIDE 30 mmol/L (21-31); CHLORIDE 105 mmol/L (97-110); GLUCOSE 99 mg/dl (70-220); MAGNESIUM 1.9 mg/dl (1.7-2.5); PHOSPHORUS 4.3 mg/dl (2.5-4.9); POTASSIUM 4.9 mmol/L (3.5-5.1); SODIUM 140 mmol/L (135-144)
[2019-04-22] MEDS: INSULIN ASPART [NOVOLOG] 3 ML PEN SC ×4 (06:00→17:35)
[2019-04-22] MEDS: PIPER-TAZO 2.25 GM (PMX) 50 ML IVPB ×3 (06:43→21:38)
[2019-04-22] MEDS: LANSOPRAZOLE 30 MG CAP GTB (06:44)
[2019-04-22] MEDS: PROPOFOL 100 ML IV ×2 (07:30→19:30)
[2019-04-22 07:59] LABS: ANISOCYTOSIS 1+ (0-0); BAND NEUTROPHILS #M 0.6 10^3/ul (0.0-0.6); BAND NEUTROPHILS % (M) 9 % (0-4); BURR CELLS 1+ (0-0); EOSINOPHILS % (M) 3 % (0-7); GIANT THROMBO% (M) 3 % (0-0); LYMPHOCYTES #M 0.1 10^3/ul (0.8-2.9); LYMPHOCYTES % (M) 2 % (15-51); PLATELET ESTIMATE DECREASED; POIKILOCYTOSIS 2+ (0-0); POLYCHROMASIA 1+ (0-0); REACTIVE LYMPHOCYTES #M 0.2 10^3/ul (0.0-0.0); REACTIVE LYMPHOCYTES% (M) 3 % (0-0); SEG NEUT #M 5.6 10^3/ul (1.6-7.5); SEGMENTED NEUTROPHILS (M) % 83 % (39-77); SMUDGE%M 6 % (0-0)
[2019-04-22] MEDS: DILTIAZEM 30 MG TAB PO ×2 (09:00→20:26)
[2019-04-22] MEDS: BUMETANIDE 1 MG INJ IV (09:36)
[2019-04-22] MEDS: POTASSIUM CHLORIDE 20 MEQ POWDER FOR ORAL SOLN GTB ×2 (09:37→20:27)
[2019-04-22] MEDS: FOLIC ACID 1 MG TAB PO (09:37)
[2019-04-22] MEDS: ESCITALOPRAM 10 MG TAB PO (09:37)
[2019-04-22] MEDS: ACETAZOLAMIDE 500 MG INJ IV (09:37)
[2019-04-22] MEDS: ASCORBIC ACID 250 MG TAB PO (09:37)
[2019-04-22] MEDS: SPIRONOLACTONE 25 MG TAB NGT (09:38)
[2019-04-22] MEDS: BALSAM PERU/CASTOR OIL 60 GM TUBE TOP (09:39)
[2019-04-22] MEDS: MUPIROCIN 2% 22 GM OINT TOP ×2 (09:39→20:26)
[2019-04-22] MEDS: ALPRAZOLAM 0.25 MG TAB PO ×2 (09:43→20:25)
[2019-04-22] MEDS: SEVELAMER CARBONATE 0.8 GM PKT GTB ×3 (09:45→17:35)
[2019-04-22] MEDS: CASPOFUNGIN 50 MG in SOD CHLORIDE 0.9% 250 ML IVPB (15:22)
[2019-04-23] MEDS: METOCLOPRAMIDE 10 MG INJ IV ×2 (00:29→05:20)
[2019-04-23] MEDS: INSULIN ASPART [NOVOLOG] 3 ML PEN SC ×5 (00:31→23:41)
[2019-04-23] MEDS: ALBUTEROL HFA 8 GM INHALER INH ×4 (01:34→19:06)
[2019-04-23] MEDS: IPRATROPIUM (HFA) 12.9 GM INHALER INH ×4 (01:34→19:06)
[2019-04-23 04:50] LABS: ADD MAN DIFF? NO
[2019-04-23 04:59] LABS: WHITE BLOOD COUNT 5.4 10^3/ul (4.8-10.8)
[2019-04-23 04:59] LABS: ABNORMAL IP MESSAGE 1; BASOPHILS % 0.2 % (0.0-2.0); EOSINOPHILS # 0.2 10^3/ul (0.0-0.5); EOSINOPHILS % 3.5 % (0.0-7.0); HEMATOCRIT 30.8 % (42.0-52.0); HEMOGLOBIN 9.5 g/dl (14.0-18.0); LYMPHOCYTES # 0.6 10^3/ul (0.8-2.9); LYMPHOCYTES % 11.4 % (15.0-51.0); MEAN CORPUSCULAR HEMOGLOBIN 30.3 pg (29.0-33.0); MEAN CORPUSCULAR HGB CONC 30.8 g/dl (32.0-37.0); MEAN CORPUSCULAR VOLUME 98.1 fl (82.0-101.0); MEAN PLATELET VOLUME 13.2 fl (7.4-10.4); MONOCYTE # 0.1 10^3/ul (0.3-0.9); NEUTROPHIL # 4.5 10^3/ul (1.6-7.5); NEUTROPHILS % 82.2 % (39.0-77.0); PLATELET COUNT 47 10^3/UL (140-415); POSITIVE DIFF @See below; RED BLOOD COUNT 3.14 10^6/ul (4.70-6.10); RED CELL DISTRIBUTION WIDTH 17.3 % (11.5-14.5)
[2019-04-23 05:19] LABS: ANION GAP 6 (5-13); BLOOD UREA NITROGEN 91 mg/dl (7-20); CALCIUM 8.3 mg/dl (8.4-10.2); CARBON DIOXIDE 30 mmol/L (21-31); CHLORIDE 103 mmol/L (97-110); CREATININE 1.72 mg/dl (0.61-1.24); GLUCOSE 109 mg/dl (70-220); MAGNESIUM 1.9 mg/dl (1.7-2.5); PHOSPHORUS 4.5 mg/dl (2.5-4.9); POTASSIUM 4.5 mmol/L (3.5-5.1); SODIUM 139 mmol/L (135-144)
[2019-04-23] MEDS: PIPER-TAZO 2.25 GM (PMX) 50 ML IVPB (05:20)
[2019-04-23] MEDS: LANSOPRAZOLE 30 MG CAP GTB (05:21)
[2019-04-23] MEDS: PROPOFOL 100 ML IV ×2 (06:51→18:19)
[2019-04-23] MEDS: SEVELAMER CARBONATE 0.8 GM PKT GTB ×3 (06:53→18:19)
[2019-04-23 07:45] LABS: ANISOCYTOSIS 1+ (0-0); BAND NEUTROPHILS #M 0.2 10^3/ul (0.0-0.6); BAND NEUTROPHILS % (M) 5 % (0-4); BURR CELLS 2+ (0-0); EOSINOPHILS % (M) 4 % (0-7); GIANT THROMBO% (M) 1 % (0-0); LYMPHOCYTES #M 0.2 10^3/ul (0.8-2.9); LYMPHOCYTES % (M) 5 % (15-51); MONOCYTE #M 0.1 10^3/ul (0.3-0.9); MONOCYTES % (M) 2 % (0-11); OVALOCYTES 2+ (0-0); PLATELET ESTIMATE DECREASED; POIKILOCYTOSIS 3+ (0-0); POLYCHROMASIA 1+ (0-0); REACTIVE LYMPHOCYTES% (M) 1 % (0-0); SEG NEUT #M 4.5 10^3/ul (1.6-7.5); SEGMENTED NEUTROPHILS (M) % 83 % (39-77); SMUDGE%M 10 % (0-0); TOXIC GRANULATION 1+ (0-0)
[2019-04-23] MEDS: DILTIAZEM 30 MG TAB PO ×2 (09:00→20:36)
[2019-04-23] MEDS: POTASSIUM CHLORIDE 20 MEQ POWDER FOR ORAL SOLN GTB ×2 (09:07→20:35)
[2019-04-23] MEDS: SPIRONOLACTONE 25 MG TAB NGT (09:08)
[2019-04-23] MEDS: BALSAM PERU/CASTOR OIL 60 GM TUBE TOP (09:08)
[2019-04-23] MEDS: FOLIC ACID 1 MG TAB PO (09:08)
[2019-04-23] MEDS: MUPIROCIN 2% 22 GM OINT TOP ×2 (09:08→20:36)
[2019-04-23] MEDS: BUMETANIDE 1 MG INJ IV (09:09)
[2019-04-23] MEDS: ESCITALOPRAM 10 MG TAB PO (09:09)
[2019-04-23] MEDS: ASCORBIC ACID 250 MG TAB PO (09:10)
[2019-04-23] MEDS: ALPRAZOLAM 0.25 MG TAB PO ×2 (11:21→20:35)
[2019-04-23] MEDS: morphine 2 MG INJ IV (13:42)
[2019-04-23] MEDS: CASPOFUNGIN 50 MG in SOD CHLORIDE 0.9% 250 ML IVPB (15:52)
[2019-04-23] MEDS: CEFEPIME 1GM/50 ML (PMX) 50 ML IVPB (20:36)
[2019-04-24] MEDS: ALBUTEROL HFA 8 GM INHALER INH ×4 (01:12→20:27)
[2019-04-24] MEDS: IPRATROPIUM (HFA) 12.9 GM INHALER INH ×4 (01:13→20:27)
[2019-04-24 04:30] LABS: WHITE BLOOD COUNT 3.7 10^3/ul (4.8-10.8)
[2019-04-24 04:30] LABS: ABNORMAL IP MESSAGE 1; HEMATOCRIT 28.7 % (42.0-52.0); HEMOGLOBIN 8.8 g/dl (14.0-18.0); MEAN CORPUSCULAR HEMOGLOBIN 29.7 pg (29.0-33.0); MEAN CORPUSCULAR HGB CONC 30.7 g/dl (32.0-37.0); MEAN PLATELET VOLUME 12.6 fl (7.4-10.4); POSITIVE DIFF @See below; RED BLOOD COUNT 2.96 10^6/ul (4.70-6.10); RED CELL DISTRIBUTION WIDTH 16.7 % (11.5-14.5)
[2019-04-24 04:48] LABS: ANION GAP 7 (5-13); BLOOD UREA NITROGEN 89 mg/dl (7-20); CALCIUM 8.4 mg/dl (8.4-10.2); CARBON DIOXIDE 27 mmol/L (21-31); CHLORIDE 102 mmol/L (97-110); GLUCOSE 108 mg/dl (70-220); MAGNESIUM 1.9 mg/dl (1.7-2.5); PHOSPHORUS 4.4 mg/dl (2.5-4.9); POTASSIUM 4.5 mmol/L (3.5-5.1); SODIUM 136 mmol/L (135-144)
[2019-04-24] MEDS: LANSOPRAZOLE 30 MG CAP GTB (05:08)
[2019-04-24 05:13] LABS: PLATELET COUNT 44 10^3/UL (140-415)
[2019-04-24 05:14] LABS: ADD MAN DIFF? YES
[2019-04-24] MEDS: INSULIN ASPART [NOVOLOG] 3 ML PEN SC ×4 (05:25→23:31)
[2019-04-24] MEDS: PROPOFOL 100 ML IV ×2 (07:06→19:30)
[2019-04-24 07:48] LABS: ANISOCYTOSIS 1+ (0-0); BAND NEUTROPHILS #M 0.1 10^3/ul (0.0-0.6); BAND NEUTROPHILS % (M) 5 % (0-4); BURR CELLS 1+ (0-0); EOSINOPHILS % (M) 1 % (0-7); GIANT THROMBO% (M) 2 % (0-0); LYMPHOCYTES #M 0.5 10^3/ul (0.8-2.9); LYMPHOCYTES % (M) 14 % (15-51); MONOCYTE #M 0.1 10^3/ul (0.3-0.9); MONOCYTES % (M) 4 % (0-11); OVALOCYTES 1+ (0-0); PLATELET ESTIMATE DECREASED; POIKILOCYTOSIS 1+ (0-0); SEG NEUT #M 2.8 10^3/ul (1.6-7.5); SEGMENTED NEUTROPHILS (M) % 76 % (39-77); SMUDGE%M 15 % (0-0)
[2019-04-24] MEDS: SEVELAMER CARBONATE 0.8 GM PKT GTB ×3 (08:00→17:06)
[2019-04-24] MEDS: POTASSIUM CHLORIDE 20 MEQ POWDER FOR ORAL SOLN GTB (09:57)
[2019-04-24] MEDS: CEFEPIME 1GM/50 ML (PMX) 50 ML IVPB (09:57)
[2019-04-24] MEDS: SPIRONOLACTONE 25 MG TAB NGT (09:57)
[2019-04-24] MEDS: BUMETANIDE 1 MG INJ IV (09:57)
[2019-04-24] MEDS: DILTIAZEM 30 MG TAB PO ×2 (09:58→20:29)
[2019-04-24] MEDS: FOLIC ACID 1 MG TAB PO (09:58)
[2019-04-24] MEDS: ESCITALOPRAM 10 MG TAB PO (09:58)
[2019-04-24] MEDS: ASCORBIC ACID 250 MG TAB PO (09:58)
[2019-04-24] MEDS: ALPRAZOLAM 0.25 MG TAB PO (10:07)
[2019-04-24] MEDS: BALSAM PERU/CASTOR OIL 60 GM TUBE TOP (10:08)
[2019-04-24] MEDS: MUPIROCIN 2% 22 GM OINT TOP ×2 (10:08→20:30)
[2019-04-24] MEDS ORDERED: ALPRAZOLAM 0.25 MG TAB PO (14:00)
[2019-04-24] MEDS: CASPOFUNGIN 50 MG in SOD CHLORIDE 0.9% 250 ML IVPB (16:26)
[2019-04-25] MEDS: IPRATROPIUM (HFA) 12.9 GM INHALER INH ×4 (02:15→19:32)
[2019-04-25] MEDS: ALBUTEROL HFA 8 GM INHALER INH ×4 (02:15→19:32)
[2019-04-25 04:57] LABS: WHITE BLOOD COUNT 2.7 10^3/ul (4.8-10.8)
[2019-04-25 04:57] LABS: ABNORMAL IP MESSAGE 1; HEMATOCRIT 29.3 % (42.0-52.0); HEMOGLOBIN 9.1 g/dl (14.0-18.0); MEAN CORPUSCULAR HEMOGLOBIN 29.6 pg (29.0-33.0); MEAN CORPUSCULAR HGB CONC 31.1 g/dl (32.0-37.0); MEAN CORPUSCULAR VOLUME 95.4 fl (82.0-101.0); MEAN PLATELET VOLUME 13.5 fl (7.4-10.4); PLATELET COUNT 55 10^3/UL (140-415); POSITIVE DIFF @See below; RED BLOOD COUNT 3.07 10^6/ul (4.70-6.10); RED CELL DISTRIBUTION WIDTH 16.5 % (11.5-14.5)
[2019-04-25] MEDS: LANSOPRAZOLE 30 MG CAP GTB (05:05)
[2019-04-25 05:20] LABS: PHOSPHORUS 4.2 mg/dl (2.5-4.9)
[2019-04-25 05:20] LABS: MAGNESIUM 1.9 mg/dl (1.7-2.5)
[2019-04-25 05:24] LABS: ALANINE AMINOTRANSFERASE 49 IU/L (13-69); ALBUMIN 2.5 g/dl (3.3-4.9); ALBUMIN/GLOBULIN RATIO 0.86; ALKALINE PHOSPHATASE 536 IU/L (42-121); ANION GAP 8 (5-13); ASPARTATE AMINO TRANSFERASE 45 IU/L (15-46); BILIRUBIN,INDIRECT 0.4 mg/dl (0-1.1); BILIRUBIN,TOTAL 1.1 mg/dl (0.2-1.3); BLOOD UREA NITROGEN 86 mg/dl (7-20); CALCIUM 8.4 mg/dl (8.4-10.2); CARBON DIOXIDE 27 mmol/L (21-31); CHLORIDE 101 mmol/L (97-110); CREATININE 1.69 mg/dl (0.61-1.24); GLUCOSE 101 mg/dl (70-220); POTASSIUM 4.3 mmol/L (3.5-5.1); SODIUM 136 mmol/L (135-144); TOTAL PROTEIN 5.4 g/dl (6.1-8.1)
[2019-04-25] MEDS: INSULIN ASPART [NOVOLOG] 3 ML PEN SC ×3 (05:42→17:59)
[2019-04-25 05:54] LABS: ADD MAN DIFF? YES
[2019-04-25] MEDS: PROPOFOL 100 ML IV ×2 (07:30→18:30)
[2019-04-25] MEDS: BUMETANIDE 1 MG INJ IV (08:48)
[2019-04-25] MEDS: ASCORBIC ACID 250 MG TAB PO (08:48)
[2019-04-25] MEDS: ESCITALOPRAM 10 MG TAB PO (08:48)
[2019-04-25] MEDS: POTASSIUM CHLORIDE 20 MEQ POWDER FOR ORAL SOLN GTB (08:48)
[2019-04-25] MEDS: SEVELAMER CARBONATE 0.8 GM PKT GTB ×3 (08:48→17:59)
[2019-04-25] MEDS: SPIRONOLACTONE 25 MG TAB NGT (08:49)
[2019-04-25] MEDS: DILTIAZEM 30 MG TAB PO ×2 (08:49→20:55)
[2019-04-25] MEDS: FOLIC ACID 1 MG TAB PO (08:49)
[2019-04-25] MEDS: BALSAM PERU/CASTOR OIL 60 GM TUBE TOP (08:52)
[2019-04-25] MEDS: MUPIROCIN 2% 22 GM OINT TOP ×2 (08:52→20:55)
[2019-04-25 09:55] LABS: BAND NEUTROPHILS #M 0.1 10^3/ul (0.0-0.6); BAND NEUTROPHILS % (M) 6 % (0-4); BURR CELLS 1+ (0-0); EOSINOPHILS % (M) 9 % (0-7); GIANT THROMBO% (M) 2 % (0-0); LYMPHOCYTES #M 0.8 10^3/ul (0.8-2.9); LYMPHOCYTES % (M) 32 % (15-51); MONOCYTE #M 0.1 10^3/ul (0.3-0.9); MONOCYTES % (M) 7 % (0-11); PLATELET ESTIMATE DECREASED; POIKILOCYTOSIS 1+ (0-0); SEG NEUT #M 1.2 10^3/ul (1.6-7.5); SEGMENTED NEUTROPHILS (M) % 46 % (39-77); SMUDGE%M 14 % (0-0); TEAR DROP CELLS 1+ (0-0)
[2019-04-25] MEDS: CASPOFUNGIN 50 MG in SOD CHLORIDE 0.9% 250 ML IVPB (15:08)
[2019-04-26] MEDS: ALBUTEROL HFA 8 GM INHALER INH ×4 (01:02→19:42)
[2019-04-26] MEDS: IPRATROPIUM (HFA) 12.9 GM INHALER INH ×4 (01:02→19:42)
[2019-04-26 04:40] LABS: ADD MAN DIFF? NO
[2019-04-26 04:47] LABS: ABNORMAL IP MESSAGE 1; BASOPHILS % 0.3 % (0.0-2.0); EOSINOPHILS # 0.1 10^3/ul (0.0-0.5); EOSINOPHILS % 3.6 % (0.0-7.0); HEMATOCRIT 27.6 % (42.0-52.0); HEMOGLOBIN 8.8 g/dl (14.0-18.0); LYMPHOCYTES # 0.8 10^3/ul (0.8-2.9); LYMPHOCYTES % 26.8 % (15.0-51.0); MEAN CORPUSCULAR HEMOGLOBIN 29.8 pg (29.0-33.0); MEAN CORPUSCULAR HGB CONC 31.9 g/dl (32.0-37.0); MEAN CORPUSCULAR VOLUME 93.6 fl (82.0-101.0); MEAN PLATELET VOLUME 13.4 fl (7.4-10.4); MONOCYTE # 0.3 10^3/ul (0.3-0.9); MONOCYTES % 9.9 % (0.0-11.0); NEUTROPHIL # 1.7 10^3/ul (1.6-7.5); NEUTROPHILS % 56.1 % (39.0-77.0); PLATELET COUNT 64 10^3/UL (140-415); POSITIVE DIFF @See below; RED BLOOD COUNT 2.95 10^6/ul (4.70-6.10); RED CELL DISTRIBUTION WIDTH 16.5 % (11.5-14.5)
[2019-04-26 05:07] LABS: ANION GAP 6 (5-13); BLOOD UREA NITROGEN 79 mg/dl (7-20); CALCIUM 8.3 mg/dl (8.4-10.2); CARBON DIOXIDE 28 mmol/L (21-31); CHLORIDE 99 mmol/L (97-110); CREATININE 1.67 mg/dl (0.61-1.24); GLUCOSE 114 mg/dl (70-220); MAGNESIUM 1.8 mg/dl (1.7-2.5); PHOSPHORUS 3.8 mg/dl (2.5-4.9); POTASSIUM 4.2 mmol/L (3.5-5.1); SODIUM 133 mmol/L (135-144)
[2019-04-26] MEDS: LANSOPRAZOLE 30 MG CAP GTB (05:49)
[2019-04-26] MEDS: INSULIN ASPART [NOVOLOG] 3 ML PEN SC ×5 (05:49→23:18)
[2019-04-26] MEDS: PROPOFOL 100 ML IV ×2 (05:50→19:30)
[2019-04-26] MEDS: SEVELAMER CARBONATE 0.8 GM PKT GTB ×3 (05:50→18:02)
[2019-04-26 07:12] LABS: ANISOCYTOSIS 1+ (0-0); BAND NEUTROPHILS #M 0.4 10^3/ul (0.0-0.6); BAND NEUTROPHILS % (M) 14 % (0-4); BASOPHILS % (M) 1 % (0-2); EOSINOPHILS % (M) 2 % (0-7); GIANT THROMBO% (M) 9 % (0-0); LYMPHOCYTES #M 0.6 10^3/ul (0.8-2.9); LYMPHOCYTES % (M) 21 % (15-51); MONOCYTE #M 0.1 10^3/ul (0.3-0.9); MONOCYTES % (M) 6 % (0-11); MYELOCYTES % (M) 1 % (0-0); PLATELET ESTIMATE DECREASED; POIKILOCYTOSIS 1+ (0-0); PROMYELOCYTES % (M) 1 % (0-0); REACTIVE LYMPHOCYTES #M 0.3 10^3/ul (0.0-0.0); REACTIVE LYMPHOCYTES% (M) 10 % (0-0); SEG NEUT #M 1.3 10^3/ul (1.6-7.5); SEGMENTED NEUTROPHILS (M) % 44 % (39-77); SMUDGE%M 22 % (0-0); TOXIC GRANULATION 1+ (0-0)
[2019-04-26] MEDS: BUMETANIDE 1 MG INJ IV (09:17)
[2019-04-26] MEDS: ESCITALOPRAM 10 MG TAB PO (09:18)
[2019-04-26] MEDS: FOLIC ACID 1 MG TAB PO (09:18)
[2019-04-26] MEDS: POTASSIUM CHLORIDE 20 MEQ POWDER FOR ORAL SOLN GTB (09:18)
[2019-04-26] MEDS: MUPIROCIN 2% 22 GM OINT TOP ×2 (09:19→20:31)
[2019-04-26] MEDS: BALSAM PERU/CASTOR OIL 60 GM TUBE TOP (09:19)
[2019-04-26] MEDS: DILTIAZEM 30 MG TAB PO ×2 (09:19→20:31)
[2019-04-26] MEDS: ASCORBIC ACID 250 MG TAB PO (09:19)
[2019-04-26] MEDS: SPIRONOLACTONE 25 MG TAB NGT (09:19)
[2019-04-26] MEDS: CASPOFUNGIN 50 MG in SOD CHLORIDE 0.9% 250 ML IVPB (15:09)
[2019-04-26] MEDS: morphine 2 MG INJ IV (23:26)
[2019-04-27] MEDS: IPRATROPIUM (HFA) 12.9 GM INHALER INH ×4 (01:08→19:27)
[2019-04-27] MEDS: ALBUTEROL HFA 8 GM INHALER INH ×4 (01:08→19:27)
[2019-04-27 04:15] LABS: ADD MAN DIFF? NO
[2019-04-27 04:28] LABS: ABNORMAL IP MESSAGE 1; BASOPHILS % 0.3 % (0.0-2.0); EOSINOPHILS # 0.1 10^3/ul (0.0-0.5); EOSINOPHILS % 3.6 % (0.0-7.0); HEMOGLOBIN 8.4 g/dl (14.0-18.0); LYMPHOCYTES # 1.1 10^3/ul (0.8-2.9); LYMPHOCYTES % 29.2 % (15.0-51.0); MEAN CORPUSCULAR HEMOGLOBIN 30.2 pg (29.0-33.0); MEAN CORPUSCULAR HGB CONC 32.3 g/dl (32.0-37.0); MEAN CORPUSCULAR VOLUME 93.5 fl (82.0-101.0); MEAN PLATELET VOLUME 12.3 fl (7.4-10.4); MONOCYTE # 0.5 10^3/ul (0.3-0.9); NEUTROPHIL # 1.8 10^3/ul (1.6-7.5); NEUTROPHILS % 47.9 % (39.0-77.0); PLATELET COUNT 76 10^3/UL (140-415); POSITIVE DIFF @See below; RED BLOOD COUNT 2.78 10^6/ul (4.70-6.10); RED CELL DISTRIBUTION WIDTH 16.4 % (11.5-14.5)
[2019-04-27 04:34] LABS: PHOSPHORUS 3.4 mg/dl (2.5-4.9); WHITE BLOOD COUNT 3.8 10^3/ul (4.8-10.8)
[2019-04-27 04:34] LABS: MAGNESIUM 1.8 mg/dl (1.7-2.5)
[2019-04-27 04:35] LABS: ANION GAP 9 (5-13); BLOOD UREA NITROGEN 73 mg/dl (7-20); CALCIUM 8.3 mg/dl (8.4-10.2); CARBON DIOXIDE 26 mmol/L (21-31); CHLORIDE 97 mmol/L (97-110); GLUCOSE 87 mg/dl (70-220); POTASSIUM 4.3 mmol/L (3.5-5.1); SODIUM 132 mmol/L (135-144)
[2019-04-27 04:47] LABS: PROTEIN, TOTAL 4.5 g/dL (6.1-8.1)
[2019-04-27] MEDS: LANSOPRAZOLE 30 MG CAP GTB (05:34)
[2019-04-27] MEDS: INSULIN ASPART [NOVOLOG] 3 ML PEN SC ×4 (05:34→23:53)
[2019-04-27] MEDS: PROPOFOL 100 ML IV ×2 (07:30→19:30)
[2019-04-27] MEDS: SEVELAMER CARBONATE 0.8 GM PKT GTB ×3 (08:41→18:25)
[2019-04-27] MEDS: ACETAZOLAMIDE 500 MG INJ IV (08:41)
[2019-04-27] MEDS: ASCORBIC ACID 250 MG TAB PO (08:51)
[2019-04-27] MEDS: DILTIAZEM 30 MG TAB PO ×2 (08:51→20:58)
[2019-04-27] MEDS: ESCITALOPRAM 10 MG TAB PO (08:51)
[2019-04-27] MEDS: POTASSIUM CHLORIDE 20 MEQ POWDER FOR ORAL SOLN GTB (08:52)
[2019-04-27] MEDS: SPIRONOLACTONE 25 MG TAB NGT (08:52)
[2019-04-27] MEDS: MUPIROCIN 2% 22 GM OINT TOP ×2 (08:52→20:59)
[2019-04-27] MEDS: BUMETANIDE 1 MG INJ IV (08:52)
[2019-04-27] MEDS: BALSAM PERU/CASTOR OIL 60 GM TUBE TOP (08:52)
[2019-04-27] MEDS: FOLIC ACID 1 MG TAB PO (09:15)
[2019-04-27 15:57] LABS: ABNORMAL PROTEIN BAND 1 0.1 g/dL (NONE DETECTED); ABNORMAL PROTEIN BAND 2 0.5 g/dL (NONE DETECTED); ALBUMIN 2.1 g/dL (3.8-4.8); ALPHA-1-GLOBULINS 0.4 g/dL (0.2-0.3); ALPHA-2-GLOBULINS 0.9 g/dL (0.5-0.9); BETA 2 GLOBULINS 0.2 g/dL (0.2-0.5); BETA GLOBULINS 0.2 g/dL (0.4-0.6); GAMMA GLOBULINS 0.7 g/dL (0.8-1.7)
[2019-04-27] MEDS: CASPOFUNGIN 50 MG in SOD CHLORIDE 0.9% 250 ML IVPB (16:00)
[2019-04-27 17:01] LABS: AMMONIA < 9 umol/l (9-30)
[2019-04-27] MEDS: ASPIRIN 81 MG TAB GTB (18:33)
[2019-04-27] MEDS ORDERED: ALPRAZOLAM 0.25 MG TAB GTB (21:30)
[2019-04-27] MEDS ORDERED: HYDROCODONE/APAP (5/325) TAB GTB (22:30)
[2019-04-28] MEDS: ALBUTEROL HFA 8 GM INHALER INH ×4 (01:43→19:24)
[2019-04-28] MEDS: IPRATROPIUM (HFA) 12.9 GM INHALER INH ×4 (01:43→19:23)
[2019-04-28 05:13] LABS: ABNORMAL IP MESSAGE 1; HEMATOCRIT 26.8 % (42.0-52.0); HEMOGLOBIN 8.4 g/dl (14.0-18.0); MEAN CORPUSCULAR HEMOGLOBIN 29.9 pg (29.0-33.0); MEAN CORPUSCULAR HGB CONC 31.3 g/dl (32.0-37.0); MEAN CORPUSCULAR VOLUME 95.4 fl (82.0-101.0); MEAN PLATELET VOLUME 13.4 fl (7.4-10.4); PLATELET COUNT 106 10^3/UL (140-415); POSITIVE DIFF @See below; RED BLOOD COUNT 2.81 10^6/ul (4.70-6.10); RED CELL DISTRIBUTION WIDTH 16.6 % (11.5-14.5)
[2019-04-28 05:13] LABS: WHITE BLOOD COUNT 4.6 10^3/ul (4.8-10.8)
[2019-04-28 05:25] LABS: ADD MAN DIFF? YES
[2019-04-28 05:39] LABS: ANION GAP 6 (5-13); BLOOD UREA NITROGEN 68 mg/dl (7-20); CALCIUM 8.5 mg/dl (8.4-10.2); CARBON DIOXIDE 29 mmol/L (21-31); CHLORIDE 98 mmol/L (97-110); CREATININE 1.58 mg/dl (0.61-1.24); GLUCOSE 109 mg/dl (70-220); MAGNESIUM 1.9 mg/dl (1.7-2.5); POTASSIUM 4.1 mmol/L (3.5-5.1); SODIUM 133 mmol/L (135-144)
[2019-04-28] MEDS: LANSOPRAZOLE 30 MG CAP GTB (05:53)
[2019-04-28] MEDS: INSULIN ASPART [NOVOLOG] 3 ML PEN SC ×3 (06:00→21:00)
[2019-04-28] MEDS: PROPOFOL 100 ML IV ×2 (07:30→16:50)
[2019-04-28 08:01] LABS: ANISOCYTOSIS 1+ (0-0); BAND NEUTROPHILS #M 0.4 10^3/ul (0.0-0.6); BAND NEUTROPHILS % (M) 10 % (0-4); BASOPHILS % (M) 1 % (0-2); BURR CELLS 1+ (0-0); EOSINOPHILS % (M) 3 % (0-7); GIANT THROMBO% (M) 6 % (0-0); LYMPHOCYTES % (M) 23 % (15-51); METAMYELOCYTES %M 1 % (0-0); MONOCYTE #M 0.2 10^3/ul (0.3-0.9); MONOCYTES % (M) 6 % (0-11); MYELOCYTES % (M) 1 % (0-0); PLATELET ESTIMATE DECREASED; POIKILOCYTOSIS 1+ (0-0); POLYCHROMASIA 1+ (0-0); REACTIVE LYMPHOCYTES #M 0.5 10^3/ul (0.0-0.0); REACTIVE LYMPHOCYTES% (M) 12 % (0-0); SEGMENTED NEUTROPHILS (M) % 43 % (39-77); SMUDGE%M 16 % (0-0)
[2019-04-28] MEDS: ACETAZOLAMIDE 500 MG INJ IV (09:15)
[2019-04-28] MEDS: ASPIRIN 81 MG TAB GTB (09:16)
[2019-04-28] MEDS: BUMETANIDE 1 MG INJ IV (09:16)
[2019-04-28] MEDS: ESCITALOPRAM 10 MG TAB GTB (09:16)
[2019-04-28] MEDS: DILTIAZEM 30 MG TAB GTB ×2 (09:17→21:27)
[2019-04-28] MEDS: ASCORBIC ACID 250 MG TAB GTB (09:17)
[2019-04-28] MEDS: FOLIC ACID 1 MG TAB GTB (09:17)
[2019-04-28] MEDS: POTASSIUM CHLORIDE 20 MEQ POWDER FOR ORAL SOLN GTB (09:17)
[2019-04-28] MEDS: SEVELAMER CARBONATE 0.8 GM PKT GTB ×3 (09:18→21:27)
[2019-04-28] MEDS: SPIRONOLACTONE 25 MG TAB NGT (09:19)
[2019-04-28] MEDS: MUPIROCIN 2% 22 GM OINT TOP ×2 (09:19→21:29)
[2019-04-28] MEDS: BALSAM PERU/CASTOR OIL 60 GM TUBE TOP (09:20)
[2019-04-28 10:04] LABS: ADD UMIC YES; UR ASCORBIC ACID NEGATIVE (NEGATIVE); UR BACTERIA FEW /HPF (NONE SEEN); UR BILIRUBIN (Dip) NEGATIVE (NEGATIVE); UR BLOOD (Dip) NEGATIVE (NEGATIVE); UR BUDDING YEAST MODERATE /HPF (NONE SEEN); UR CLARITY CLEAR (CLEAR); UR COLOR YELLOW (YELLOW); UR GLUCOSE (Dip) NEGATIVE (NEGATIVE); UR KETONES (Dip) NEGATIVE (NEGATIVE); UR LEUKOCYTE ESTERASE (Dip) 1+ Leu/ul (NEGATIVE); UR NITRITE (Dip) NEGATIVE (NEGATIVE); UR RBC 5 /HPF (0-5); UR TOTAL PROTEIN (Dip) 1+ mg/dl (NEGATIVE); UR UROBILINOGEN (Dip) NEGATIVE (NEGATIVE); UR WBC 8 /HPF (0-5)
[2019-04-28] MEDS: CASPOFUNGIN 50 MG in SOD CHLORIDE 0.9% 250 ML IVPB (16:50)
[2019-04-29] MEDS: ALBUTEROL HFA 8 GM INHALER INH ×4 (01:32→19:17)
[2019-04-29] MEDS: IPRATROPIUM (HFA) 12.9 GM INHALER INH ×4 (01:32→19:17)
[2019-04-29 04:35] LABS: ABNORMAL IP MESSAGE 1; HEMATOCRIT 26.2 % (42.0-52.0); HEMOGLOBIN 8.2 g/dl (14.0-18.0); MEAN CORPUSCULAR HEMOGLOBIN 29.6 pg (29.0-33.0); MEAN CORPUSCULAR HGB CONC 31.3 g/dl (32.0-37.0); MEAN CORPUSCULAR VOLUME 94.6 fl (82.0-101.0); MEAN PLATELET VOLUME 12.9 fl (7.4-10.4); PLATELET COUNT 153 10^3/UL (140-415); POSITIVE DIFF @See below; RED BLOOD COUNT 2.77 10^6/ul (4.70-6.10); RED CELL DISTRIBUTION WIDTH 17.2 % (11.5-14.5)
[2019-04-29 04:36] LABS: ADD MAN DIFF? YES
[2019-04-29 04:54] LABS: ANION GAP 5 (5-13); BLOOD UREA NITROGEN 63 mg/dl (7-20); CALCIUM 8.4 mg/dl (8.4-10.2); CARBON DIOXIDE 27 mmol/L (21-31); CHLORIDE 100 mmol/L (97-110); CREATININE 1.63 mg/dl (0.61-1.24); GLUCOSE 86 mg/dl (70-220); MAGNESIUM 1.9 mg/dl (1.7-2.5); PHOSPHORUS 3.6 mg/dl (2.5-4.9); POTASSIUM 4.2 mmol/L (3.5-5.1); SODIUM 132 mmol/L (135-144)
[2019-04-29 05:07] LABS: ANISOCYTOSIS 1+ (0-0); BAND NEUTROPHILS #M 0.8 10^3/ul (0.0-0.6); BAND NEUTROPHILS % (M) 12 % (0-4); LYMPHOCYTES #M 1.5 10^3/ul (0.8-2.9); LYMPHOCYTES % (M) 22 % (15-51); METAMYELOCYTES %M 1 % (0-0); MICROCYTOSIS 1+ (0-0); MONOCYTE #M 0.6 10^3/ul (0.3-0.9); MONOCYTES % (M) 9 % (0-11); MYELOCYTES #M 0.2 10^3/ul (0.0-0.0); MYELOCYTES % (M) 3 % (0-0); PLATELET ESTIMATE NORMAL; POLYCHROMASIA 3+ (0-0); SEG NEUT #M 3.8 10^3/ul (1.6-7.5); SEGMENTED NEUTROPHILS (M) % 53 % (39-77); SMUDGE%M 70 % (0-0)
[2019-04-29] MEDS: LANSOPRAZOLE 30 MG CAP GTB (05:43)
[2019-04-29] MEDS: PROPOFOL 100 ML IV ×2 (06:14→14:53)
[2019-04-29] MEDS: INSULIN ASPART [NOVOLOG] 3 ML PEN SC (09:00)
[2019-04-29] MEDS: BUMETANIDE 1 MG INJ IV (11:10)
[2019-04-29] MEDS: ACETAZOLAMIDE 500 MG INJ IV (11:11)
[2019-04-29] MEDS: ESCITALOPRAM 10 MG TAB GTB (11:11)
[2019-04-29] MEDS: SEVELAMER CARBONATE 0.8 GM PKT GTB ×3 (11:11→21:02)
[2019-04-29] MEDS: ASCORBIC ACID 250 MG TAB GTB (11:11)
[2019-04-29] MEDS: POTASSIUM CHLORIDE 20 MEQ POWDER FOR ORAL SOLN GTB (11:11)
[2019-04-29] MEDS: DILTIAZEM 30 MG TAB GTB ×2 (11:12→21:02)
[2019-04-29] MEDS: ASPIRIN 81 MG TAB GTB (11:12)
[2019-04-29] MEDS: SPIRONOLACTONE 25 MG TAB NGT (11:12)
[2019-04-29] MEDS: FOLIC ACID 1 MG TAB GTB (11:13)
[2019-04-29] MEDS: MUPIROCIN 2% 22 GM OINT TOP ×2 (11:13→21:01)
[2019-04-29] MEDS: BALSAM PERU/CASTOR OIL 60 GM TUBE TOP (11:14)
[2019-04-29] MEDS: CASPOFUNGIN 50 MG in SOD CHLORIDE 0.9% 250 ML IVPB (15:56)
[2019-04-30] MEDS: ALBUTEROL HFA 8 GM INHALER INH ×4 (01:47→20:36)
[2019-04-30] MEDS: IPRATROPIUM (HFA) 12.9 GM INHALER INH ×4 (01:47→20:37)
[2019-04-30 05:19] LABS: WHITE BLOOD COUNT 8.7 10^3/ul (4.8-10.8)
[2019-04-30 05:19] LABS: ABNORMAL IP MESSAGE 1; HEMATOCRIT 27.3 % (42.0-52.0); HEMOGLOBIN 8.4 g/dl (14.0-18.0); MEAN CORPUSCULAR HEMOGLOBIN 29.7 pg (29.0-33.0); MEAN CORPUSCULAR HGB CONC 30.8 g/dl (32.0-37.0); MEAN CORPUSCULAR VOLUME 96.5 fl (82.0-101.0); MEAN PLATELET VOLUME 12.7 fl (7.4-10.4); PLATELET COUNT 245 10^3/UL (140-415); POSITIVE DIFF @See below; RED BLOOD COUNT 2.83 10^6/ul (4.70-6.10); RED CELL DISTRIBUTION WIDTH 17.4 % (11.5-14.5)
[2019-04-30] MEDS: LANSOPRAZOLE 30 MG CAP GTB (05:20)
[2019-04-30 05:23] LABS: ADD MAN DIFF? YES
[2019-04-30 05:56] LABS: ANION GAP 7 (5-13); BLOOD UREA NITROGEN 60 mg/dl (7-20); CALCIUM 8.3 mg/dl (8.4-10.2); CARBON DIOXIDE 27 mmol/L (21-31); CHLORIDE 101 mmol/L (97-110); CREATININE 1.61 mg/dl (0.61-1.24); GLUCOSE 96 mg/dl (70-220); PHOSPHORUS 4.5 mg/dl (2.5-4.9); POTASSIUM 4.1 mmol/L (3.5-5.1); SODIUM 135 mmol/L (135-144)
[2019-04-30 09:07] LABS: ANISOCYTOSIS 1+ (0-0); BAND NEUTROPHILS #M 1.2 10^3/ul (0.0-0.6); BAND NEUTROPHILS % (M) 14 % (0-4); BURR CELLS 1+ (0-0); GIANT THROMBO% (M) 1 % (0-0); LYMPHOCYTES #M 0.6 10^3/ul (0.8-2.9); LYMPHOCYTES % (M) 8 % (15-51); METAMYELOCYTES #M 0.1 10^3/ul (0.0-0.0); METAMYELOCYTES %M 2 % (0-0); MICROCYTOSIS 1+ (0-0); MONOCYTE #M 0.7 10^3/ul (0.3-0.9); MONOCYTES % (M) 9 % (0-11); MYELOCYTES #M 0.2 10^3/ul (0.0-0.0); MYELOCYTES % (M) 3 % (0-0); PLATELET ESTIMATE NORMAL; POIKILOCYTOSIS 1+ (0-0); POLYCHROMASIA 2+ (0-0); PROMYELOCYTES % (M) 1 % (0-0); REACTIVE LYMPHOCYTES #M 0.1 10^3/ul (0.0-0.0); REACTIVE LYMPHOCYTES% (M) 2 % (0-0); SEG NEUT #M 5.4 10^3/ul (1.6-7.5); SEGMENTED NEUTROPHILS (M) % 61 % (39-77); SMUDGE%M 28 % (0-0)
[2019-04-30] MEDS: SEVELAMER CARBONATE 0.8 GM PKT GTB ×3 (11:09→20:08)
[2019-04-30] MEDS: BUMETANIDE 1 MG INJ IV (11:09)
[2019-04-30] MEDS: POTASSIUM CHLORIDE 20 MEQ POWDER FOR ORAL SOLN GTB (11:10)
[2019-04-30] MEDS: SPIRONOLACTONE 25 MG TAB NGT (11:10)
[2019-04-30] MEDS: ESCITALOPRAM 10 MG TAB GTB (11:10)
[2019-04-30] MEDS: FOLIC ACID 1 MG TAB GTB (11:11)
[2019-04-30] MEDS: ASCORBIC ACID 250 MG TAB GTB (11:11)
[2019-04-30] MEDS: DILTIAZEM 30 MG TAB GTB ×2 (11:11→20:08)
[2019-04-30] MEDS: ASPIRIN 81 MG TAB GTB (11:11)
[2019-04-30] MEDS: BALSAM PERU/CASTOR OIL 60 GM TUBE TOP (11:12)
[2019-04-30] MEDS: MUPIROCIN 2% 22 GM OINT TOP ×2 (11:12→20:08)
[2019-05-01] MEDS: IPRATROPIUM (HFA) 12.9 GM INHALER INH ×4 (01:06→22:00)
[2019-05-01] MEDS: ALBUTEROL HFA 8 GM INHALER INH ×4 (01:06→22:00)
[2019-05-01] MEDS: LANSOPRAZOLE 30 MG CAP GTB (05:00)
[2019-05-01 05:27] LABS: ABNORMAL IP MESSAGE 1; HEMATOCRIT 26.3 % (42.0-52.0); HEMOGLOBIN 8.2 g/dl (14.0-18.0); MEAN CORPUSCULAR HEMOGLOBIN 29.8 pg (29.0-33.0); MEAN CORPUSCULAR HGB CONC 31.2 g/dl (32.0-37.0); MEAN CORPUSCULAR VOLUME 95.6 fl (82.0-101.0); MEAN PLATELET VOLUME 11.9 fl (7.4-10.4); PLATELET COUNT 330 10^3/UL (140-415); POSITIVE DIFF @See below; RED BLOOD COUNT 2.75 10^6/ul (4.70-6.10); RED CELL DISTRIBUTION WIDTH 17.7 % (11.5-14.5)
[2019-05-01 05:27] LABS: WHITE BLOOD COUNT 10.4 10^3/ul (4.8-10.8)
[2019-05-01 05:45] LABS: ADD MAN DIFF? YES
[2019-05-01 05:58] LABS: ANION GAP 7 (5-13); BLOOD UREA NITROGEN 55 mg/dl (7-20); CALCIUM 8.3 mg/dl (8.4-10.2); CARBON DIOXIDE 28 mmol/L (21-31); CHLORIDE 101 mmol/L (97-110); CREATININE 1.68 mg/dl (0.61-1.24); GLUCOSE 127 mg/dl (70-220); PHOSPHORUS 3.5 mg/dl (2.5-4.9); POTASSIUM 4.3 mmol/L (3.5-5.1); SODIUM 136 mmol/L (135-144)
[2019-05-01] MEDS: SEVELAMER CARBONATE 0.8 GM PKT GTB ×3 (08:47→20:10)
[2019-05-01] MEDS: METOLAZONE 5 MG TAB PO (08:47)
[2019-05-01] MEDS: ESCITALOPRAM 10 MG TAB GTB (08:47)
[2019-05-01] MEDS: SPIRONOLACTONE 25 MG TAB NGT (08:48)
[2019-05-01] MEDS: ASCORBIC ACID 250 MG TAB GTB (08:48)
[2019-05-01] MEDS: ASPIRIN 81 MG TAB GTB (08:48)
[2019-05-01] MEDS: DILTIAZEM 30 MG TAB GTB ×2 (08:48→20:11)
[2019-05-01] MEDS: FOLIC ACID 1 MG TAB GTB (08:48)
[2019-05-01] MEDS: BUMETANIDE 1 MG INJ IV (08:49)
[2019-05-01] MEDS: POTASSIUM CHLORIDE 20 MEQ POWDER FOR ORAL SOLN GTB (08:49)
[2019-05-01] MEDS: BALSAM PERU/CASTOR OIL 60 GM TUBE TOP (08:50)
[2019-05-01] MEDS: MUPIROCIN 2% 22 GM OINT TOP ×2 (08:50→20:10)
[2019-05-01 10:30] LABS: ANISOCYTOSIS 1+ (0-0); BAND NEUTROPHILS #M 1.6 10^3/ul (0.0-0.6); BAND NEUTROPHILS % (M) 16 % (0-4); GIANT THROMBO% (M) 2 % (0-0); LYMPHOCYTES #M 1.5 10^3/ul (0.8-2.9); LYMPHOCYTES % (M) 15 % (15-51); METAMYELOCYTES #M 0.1 10^3/ul (0.0-0.0); METAMYELOCYTES %M 1 % (0-0); MICROCYTOSIS 1+ (0-0); MONOCYTE #M 1.5 10^3/ul (0.3-0.9); MONOCYTES % (M) 15 % (0-11); PLATELET ESTIMATE NORMAL; POIKILOCYTOSIS 1+ (0-0); POLYCHROMASIA 3+ (0-0); PROMYELOCYTES #M 0.1 10^3/ul (0-0); PROMYELOCYTES % (M) 1 % (0-0); SEG NEUT #M 5.6 10^3/ul (1.6-7.5); SEGMENTED NEUTROPHILS (M) % 52 % (39-77); SMUDGE%M 8 % (0-0)
[2019-05-01 13:03] LABS: ADD UMIC YES; UR ASCORBIC ACID NEGATIVE (NEGATIVE); UR BACTERIA FEW /HPF (NONE SEEN); UR BILIRUBIN (Dip) NEGATIVE (NEGATIVE); UR BLOOD (Dip) 1+ mg/dL (NEGATIVE); UR CLARITY SLIGHTLY CLOUDY (CLEAR); UR COLOR YELLOW (YELLOW); UR GLUCOSE (Dip) NEGATIVE (NEGATIVE); UR KETONES (Dip) NEGATIVE (NEGATIVE); UR LEUKOCYTE ESTERASE (Dip) 3+ Leu/ul (NEGATIVE); UR MUCUS FEW /HPF (NONE SEEN); UR NITRITE (Dip) NEGATIVE (NEGATIVE); UR RBC 12 /HPF (0-5); UR SPECIFIC GRAVITY (Dip) 1.006 (1.003-1.030); UR TOTAL PROTEIN (Dip) NEGATIVE (NEGATIVE); UR UROBILINOGEN (Dip) NEGATIVE (NEGATIVE); UR WBC 89 /HPF (0-5)
[2019-05-02] MEDS: IPRATROPIUM (HFA) 12.9 GM INHALER INH ×4 (01:38→20:07)
[2019-05-02] MEDS: ALBUTEROL HFA 8 GM INHALER INH ×4 (01:38→20:07)
[2019-05-02 05:01] LABS: ABNORMAL IP MESSAGE 1; HEMATOCRIT 27.1 % (42.0-52.0); HEMOGLOBIN 8.5 g/dl (14.0-18.0); MEAN CORPUSCULAR HEMOGLOBIN 29.6 pg (29.0-33.0); MEAN CORPUSCULAR HGB CONC 31.4 g/dl (32.0-37.0); MEAN CORPUSCULAR VOLUME 94.4 fl (82.0-101.0); MEAN PLATELET VOLUME 11.5 fl (7.4-10.4); PLATELET COUNT 427 10^3/UL (140-415); POSITIVE DIFF @See below; RED BLOOD COUNT 2.87 10^6/ul (4.70-6.10); RED CELL DISTRIBUTION WIDTH 17.6 % (11.5-14.5)
[2019-05-02 05:01] LABS: WHITE BLOOD COUNT 15.7 10^3/ul (4.8-10.8)
[2019-05-02 05:21] LABS: ANION GAP 7 (5-13); BLOOD UREA NITROGEN 55 mg/dl (7-20); CALCIUM 8.4 mg/dl (8.4-10.2); CARBON DIOXIDE 28 mmol/L (21-31); CHLORIDE 101 mmol/L (97-110); CREATININE 1.65 mg/dl (0.61-1.24); GLUCOSE 91 mg/dl (70-220); PHOSPHORUS 3.3 mg/dl (2.5-4.9); POTASSIUM 4.3 mmol/L (3.5-5.1); SODIUM 136 mmol/L (135-144)
[2019-05-02 05:22] LABS: ADD MAN DIFF? YES
[2019-05-02] MEDS: LANSOPRAZOLE 30 MG CAP GTB (05:41)
[2019-05-02 07:52] LABS: ANISOCYTOSIS 2+ (0-0); BAND NEUTROPHILS #M 0.4 10^3/ul (0.0-0.6); BAND NEUTROPHILS % (M) 3 % (0-4); GIANT THROMBO% (M) 12 % (0-0); LYMPHOCYTES #M 3.1 10^3/ul (0.8-2.9); LYMPHOCYTES % (M) 20 % (15-51); METAMYELOCYTES #M 0.1 10^3/ul (0.0-0.0); METAMYELOCYTES %M 1 % (0-0); MICROCYTOSIS 1+ (0-0); MONOCYTE #M 1.5 10^3/ul (0.3-0.9); MONOCYTES % (M) 10 % (0-11); MYELOCYTES #M 0.1 10^3/ul (0.0-0.0); MYELOCYTES % (M) 1 % (0-0); PLATELET ESTIMATE INCREASED; POLYCHROMASIA 3+ (0-0); REACTIVE LYMPHOCYTES #M 0.4 10^3/ul (0.0-0.0); REACTIVE LYMPHOCYTES% (M) 3 % (0-0); SEG NEUT #M 9.8 10^3/ul (1.6-7.5); SEGMENTED NEUTROPHILS (M) % 62 % (39-77); SMUDGE%M 18 % (0-0)
[2019-05-02] MEDS: ASPIRIN 81 MG TAB GTB (09:00)
[2019-05-02] MEDS: SPIRONOLACTONE 25 MG TAB NGT (09:00)
[2019-05-02] MEDS: DILTIAZEM 30 MG TAB GTB ×2 (09:00→20:48)
[2019-05-02] MEDS: METOLAZONE 5 MG TAB PO (09:00)
[2019-05-02] MEDS: ASCORBIC ACID 250 MG TAB GTB (09:00)
[2019-05-02] MEDS: POTASSIUM CHLORIDE 20 MEQ POWDER FOR ORAL SOLN GTB (09:00)
[2019-05-02] MEDS: SEVELAMER CARBONATE 0.8 GM PKT GTB ×3 (09:00→20:48)
[2019-05-02] MEDS: ESCITALOPRAM 10 MG TAB GTB (09:00)
[2019-05-02] MEDS: FOLIC ACID 1 MG TAB GTB (09:00)
[2019-05-02] MEDS: BALSAM PERU/CASTOR OIL 60 GM TUBE TOP (09:15)
[2019-05-02] MEDS: MUPIROCIN 2% 22 GM OINT TOP ×2 (09:15→20:48)
[2019-05-02] MEDS: BUMETANIDE 1 MG INJ IV (09:18)
[2019-05-02] MEDS ORDERED: LIDOCAINE 1%/EPI 30 ML INJ (13:48)
[2019-05-02] MEDS ORDERED: PROPOFOL 20 ML (14:35)
[2019-05-02] MEDS ORDERED: FENTAnyl 50 MCG/ML VIAL (14:35)
[2019-05-02] MEDS ORDERED: LIDOCAINE 2% (SDV) 5 ML INJ (14:35)
[2019-05-02] MEDS ORDERED: FENTAnyl 50 MCG/ML VIAL IV (16:30)
[2019-05-02] MEDS ORDERED: HYDROmorphONE 1 MG/5 ML IV SYRINGE IV ×2 (16:30)
[2019-05-02] MEDS ORDERED: DIPHENHYDRAMINE 50 MG INJ IV (16:30)
[2019-05-02] MEDS ORDERED: MEPERIDINE 25 MG INJ IV (16:30)
[2019-05-02] MEDS ORDERED: ONDANSETRON 4 MG INJ IV (16:30)
[2019-05-02] MEDS ORDERED: METOCLOPRAMIDE 10 MG INJ IV (16:30)
[2019-05-03] MEDS: IPRATROPIUM (HFA) 12.9 GM INHALER INH ×4 (01:07→19:32)
[2019-05-03] MEDS: ALBUTEROL HFA 8 GM INHALER INH ×4 (01:07→19:32)
[2019-05-03 05:11] LABS: WHITE BLOOD COUNT 16.6 10^3/ul (4.8-10.8)
[2019-05-03 05:11] LABS: ABNORMAL IP MESSAGE 1; HEMATOCRIT 27.2 % (42.0-52.0); HEMOGLOBIN 8.5 g/dl (14.0-18.0); MEAN CORPUSCULAR HEMOGLOBIN 29.7 pg (29.0-33.0); MEAN CORPUSCULAR HGB CONC 31.3 g/dl (32.0-37.0); MEAN CORPUSCULAR VOLUME 95.1 fl (82.0-101.0); MEAN PLATELET VOLUME 11.3 fl (7.4-10.4); PLATELET COUNT 493 10^3/UL (140-415); POSITIVE DIFF @See below; RED BLOOD COUNT 2.86 10^6/ul (4.70-6.10); RED CELL DISTRIBUTION WIDTH 17.3 % (11.5-14.5)
[2019-05-03 05:15] LABS: ADD MAN DIFF? YES
[2019-05-03] MEDS: LANSOPRAZOLE 30 MG CAP GTB (05:16)
[2019-05-03 05:45] LABS: ANION GAP 6 (5-13); BLOOD UREA NITROGEN 53 mg/dl (7-20); CALCIUM 8.2 mg/dl (8.4-10.2); CARBON DIOXIDE 28 mmol/L (21-31); CHLORIDE 103 mmol/L (97-110); CREATININE 1.56 mg/dl (0.61-1.24); GLUCOSE 113 mg/dl (70-220); POTASSIUM 4.7 mmol/L (3.5-5.1); SODIUM 137 mmol/L (135-144)
[2019-05-03] MEDS: BALSAM PERU/CASTOR OIL 60 GM TUBE TOP (08:33)
[2019-05-03] MEDS: BUMETANIDE 1 MG INJ IV (08:33)
[2019-05-03] MEDS: MUPIROCIN 2% 22 GM OINT TOP ×2 (08:33→20:48)
[2019-05-03] MEDS: METOLAZONE 5 MG TAB PO (08:34)
[2019-05-03] MEDS: SEVELAMER CARBONATE 0.8 GM PKT GTB ×3 (08:34→20:47)
[2019-05-03] MEDS: ESCITALOPRAM 10 MG TAB GTB (08:34)
[2019-05-03] MEDS: POTASSIUM CHLORIDE 20 MEQ POWDER FOR ORAL SOLN GTB (08:34)
[2019-05-03] MEDS: SPIRONOLACTONE 25 MG TAB NGT (08:34)
[2019-05-03] MEDS: ASPIRIN 81 MG TAB GTB (08:34)
[2019-05-03] MEDS: DILTIAZEM 30 MG TAB GTB ×2 (08:34→20:48)
[2019-05-03] MEDS: ASCORBIC ACID 250 MG TAB GTB (08:34)
[2019-05-03] MEDS: FOLIC ACID 1 MG TAB GTB (08:35)
[2019-05-03 10:28] LABS: ANISOCYTOSIS 1+ (0-0); BAND NEUTROPHILS #M 1.3 10^3/ul (0.0-0.6); BAND NEUTROPHILS % (M) 8 % (0-4); LYMPHOCYTES #M 4.4 10^3/ul (0.8-2.9); LYMPHOCYTES % (M) 27 % (15-51); METAMYELOCYTES #M 0.3 10^3/ul (0.0-0.0); METAMYELOCYTES %M 2 % (0-0); MICROCYTOSIS 1+ (0-0); MONOCYTE #M 0.3 10^3/ul (0.3-0.9); MONOCYTES % (M) 2 % (0-11); PLATELET ESTIMATE NORMAL; POLYCHROMASIA 1+ (0-0); PROMYELOCYTES #M 0.1 10^3/ul (0-0); PROMYELOCYTES % (M) 1 % (0-0); REACTIVE LYMPHOCYTES #M 1.4 10^3/ul (0.0-0.0); REACTIVE LYMPHOCYTES% (M) 9 % (0-0); SEG NEUT #M 8.7 10^3/ul (1.6-7.5); SEGMENTED NEUTROPHILS (M) % 51 % (39-77); SMUDGE%M 5 % (0-0)
[2019-05-03] MEDS: MEROPENEM 500MG/50 ML (PMX) 50 ML IVPB ×2 (11:50→20:48)
[2019-05-03] MEDS: CASPOFUNGIN 70 MG in SOD CHLORIDE 0.9% 250 ML IVPB (12:54)
[2019-05-03] MEDS: APIXABAN 5 MG TABLET PO (20:47)
[2019-05-04] MEDS: IPRATROPIUM (HFA) 12.9 GM INHALER INH ×4 (01:21→19:37)
[2019-05-04] MEDS: ALBUTEROL HFA 8 GM INHALER INH ×4 (01:21→19:37)
[2019-05-04] MEDS: LANSOPRAZOLE 30 MG CAP GTB (05:29)
[2019-05-04 06:22] LABS: ABNORMAL IP MESSAGE 1; HEMATOCRIT 26.6 % (42.0-52.0); HEMOGLOBIN 8.2 g/dl (14.0-18.0); MEAN CORPUSCULAR HEMOGLOBIN 29.3 pg (29.0-33.0); MEAN CORPUSCULAR HGB CONC 30.8 g/dl (32.0-37.0); PLATELET COUNT 502 10^3/UL (140-415); POSITIVE DIFF @See below; RED CELL DISTRIBUTION WIDTH 17.5 % (11.5-14.5)
[2019-05-04 06:22] LABS: WHITE BLOOD COUNT 19.3 10^3/ul (4.8-10.8)
[2019-05-04 06:26] LABS: ADD MAN DIFF? YES
[2019-05-04] MEDS: ACETAMINOPHEN 325 MG TAB PEG ×2 (06:47→20:48)
[2019-05-04] MEDS: hydrALAzine 20 MG INJ IV (06:47)
[2019-05-04 07:00] LABS: ALANINE AMINOTRANSFERASE 31 IU/L (13-69); ALBUMIN 2.3 g/dl (3.3-4.9); ALBUMIN/GLOBULIN RATIO 0.71; ALKALINE PHOSPHATASE 402 IU/L (42-121); ANION GAP 10 (5-13); ASPARTATE AMINO TRANSFERASE 24 IU/L (15-46); BILIRUBIN,INDIRECT 0.3 mg/dl (0-1.1); BILIRUBIN,TOTAL 0.3 mg/dl (0.2-1.3); BLOOD UREA NITROGEN 54 mg/dl (7-20); CARBON DIOXIDE 30 mmol/L (21-31); CHLORIDE 103 mmol/L (97-110); CREATININE 1.56 mg/dl (0.61-1.24); GLUCOSE 134 mg/dl (70-220); POTASSIUM 4.4 mmol/L (3.5-5.1); SODIUM 143 mmol/L (135-144); TOTAL PROTEIN 5.5 g/dl (6.1-8.1)
[2019-05-04] MEDS ORDERED: VANCOMYCIN IV PER PHARMACY XX (07:00)
[2019-05-04] MEDS ORDERED: TOBRAMYCIN IV PER PHARMACY XX (07:00)
[2019-05-04 07:14] LABS: PHOSPHORUS 3.3 mg/dl (2.5-4.9)
[2019-05-04] MEDS: MEROPENEM 500MG/50 ML (PMX) 50 ML IVPB ×2 (08:33→20:38)
[2019-05-04] MEDS: ESCITALOPRAM 10 MG TAB GTB (08:46)
[2019-05-04] MEDS: DILTIAZEM 30 MG TAB GTB ×2 (08:47→20:48)
[2019-05-04] MEDS: METOLAZONE 5 MG TAB PO (08:47)
[2019-05-04] MEDS: ASPIRIN 81 MG TAB GTB (08:47)
[2019-05-04] MEDS: SPIRONOLACTONE 25 MG TAB NGT (08:47)
[2019-05-04] MEDS: APIXABAN 5 MG TABLET PO ×2 (08:47→20:38)
[2019-05-04] MEDS: SEVELAMER CARBONATE 0.8 GM PKT GTB ×3 (08:47→20:38)
[2019-05-04] MEDS: MUPIROCIN 2% 22 GM OINT TOP ×2 (08:48→20:38)
[2019-05-04] MEDS: BALSAM PERU/CASTOR OIL 60 GM TUBE TOP (08:48)
[2019-05-04] MEDS: POTASSIUM CHLORIDE 20 MEQ POWDER FOR ORAL SOLN GTB (08:48)
[2019-05-04] MEDS: ASCORBIC ACID 250 MG TAB GTB (08:48)
[2019-05-04] MEDS: FOLIC ACID 1 MG TAB GTB (08:50)
[2019-05-04] MEDS: TOBRAMYCIN 150 MG in SOD CHLORIDE 0.9% 100 ML IVPB (09:41)
[2019-05-04 09:54] LABS: ANISOCYTOSIS 1+ (0-0); BAND NEUTROPHILS #M 0.1 10^3/ul (0.0-0.6); BAND NEUTROPHILS % (M) 1 % (0-4); BASOPHIL #M 0.3 10^3/ul (0.0-0.0); BASOPHILS % (M) 2 % (0-2); GIANT THROMBO% (M) 4 % (0-0); LYMPHOCYTES #M 4.8 10^3/ul (0.8-2.9); LYMPHOCYTES % (M) 25 % (15-51); METAMYELOCYTES #M 0.3 10^3/ul (0.0-0.0); METAMYELOCYTES %M 2 % (0-0); MICROCYTOSIS 1+ (0-0); MONOCYTE #M 0.9 10^3/ul (0.3-0.9); MONOCYTES % (M) 5 % (0-11); MYELOCYTES #M 0.5 10^3/ul (0.0-0.0); MYELOCYTES % (M) 3 % (0-0); PLATELET ESTIMATE INCREASED; POLYCHROMASIA 2+ (0-0); PROMYELOCYTES #M 0.3 10^3/ul (0-0); PROMYELOCYTES % (M) 2 % (0-0); REACTIVE LYMPHOCYTES #M 0.3 10^3/ul (0.0-0.0); REACTIVE LYMPHOCYTES% (M) 2 % (0-0); SEG NEUT #M 11.2 10^3/ul (1.6-7.5); SEGMENTED NEUTROPHILS (M) % 58 % (39-77); SMUDGE%M 4 % (0-0)
[2019-05-04] MEDS: VANCOMYCIN HCL 1.75 GM in SOD CHLORIDE 0.9% 500 ML IVPB (10:46)
[2019-05-04] MEDS: CASPOFUNGIN 50 MG in SOD CHLORIDE 0.9% 250 ML IVPB (14:04)
[2019-05-04 15:50] LABS: ADD UMIC YES; UR ASCORBIC ACID NEGATIVE (NEGATIVE); UR BACTERIA FEW /HPF (NONE SEEN); UR BILIRUBIN (Dip) NEGATIVE (NEGATIVE); UR BLOOD (Dip) NEGATIVE (NEGATIVE); UR BUDDING YEAST FEW /HPF (NONE SEEN); UR CLARITY SLIGHTLY CLOUDY (CLEAR); UR COLOR YELLOW (YELLOW); UR GLUCOSE (Dip) NEGATIVE (NEGATIVE); UR KETONES (Dip) NEGATIVE (NEGATIVE); UR LEUKOCYTE ESTERASE (Dip) 3+ Leu/ul (NEGATIVE); UR NITRITE (Dip) NEGATIVE (NEGATIVE); UR RBC 7 /HPF (0-5); UR SPECIFIC GRAVITY (Dip) 1.012 (1.003-1.030); UR TOTAL PROTEIN (Dip) 1+ mg/dl (NEGATIVE); UR UROBILINOGEN (Dip) NEGATIVE (NEGATIVE); UR WBC 155 /HPF (0-5)
[2019-05-04] MEDS: SOD CHLORIDE 0.9% 500 ML IV (16:21)
[2019-05-04] MEDS: metroNIDAZOLE 500 MG TAB NGT (22:39)
[2019-05-05] MEDS: IPRATROPIUM (HFA) 12.9 GM INHALER INH ×4 (01:20→19:44)
[2019-05-05] MEDS: ALBUTEROL HFA 8 GM INHALER INH ×4 (01:20→19:44)
[2019-05-05] MEDS: LANSOPRAZOLE 30 MG CAP GTB (04:59)
[2019-05-05] MEDS: metroNIDAZOLE 500 MG TAB NGT ×3 (04:59→22:07)
[2019-05-05 06:36] LABS: WHITE BLOOD COUNT 24.1 10^3/ul (4.8-10.8)
[2019-05-05 06:37] LABS: ABNORMAL IP MESSAGE 1; HEMATOCRIT 27.2 % (42.0-52.0); HEMOGLOBIN 8.3 g/dl (14.0-18.0); MEAN CORPUSCULAR HEMOGLOBIN 29.1 pg (29.0-33.0); MEAN CORPUSCULAR HGB CONC 30.5 g/dl (32.0-37.0); MEAN CORPUSCULAR VOLUME 95.4 fl (82.0-101.0); MEAN PLATELET VOLUME 10.7 fl (7.4-10.4); NUCLEATED RED BLOOD CELLS% 0.1 /100WBC (0.0-0.0); PLATELET COUNT 520 10^3/UL (140-415); POSITIVE DIFF @See below; RED BLOOD COUNT 2.85 10^6/ul (4.70-6.10); RED CELL DISTRIBUTION WIDTH 17.4 % (11.5-14.5)
[2019-05-05 06:50] LABS: ADD MAN DIFF? YES
[2019-05-05 06:56] LABS: ALANINE AMINOTRANSFERASE 32 IU/L (13-69); ALBUMIN 2.2 g/dl (3.3-4.9); ALKALINE PHOSPHATASE 383 IU/L (42-121); ANION GAP 5 (5-13); ASPARTATE AMINO TRANSFERASE 29 IU/L (15-46); BILIRUBIN,INDIRECT 0.2 mg/dl (0-1.1); BILIRUBIN,TOTAL 0.2 mg/dl (0.2-1.3); BLOOD UREA NITROGEN 53 mg/dl (7-20); CALCIUM 7.8 mg/dl (8.4-10.2); CARBON DIOXIDE 29 mmol/L (21-31); CHLORIDE 103 mmol/L (97-110); CREATININE 1.43 mg/dl (0.61-1.24); GLUCOSE 122 mg/dl (70-220); POTASSIUM 4.8 mmol/L (3.5-5.1); SODIUM 137 mmol/L (135-144); TOTAL PROTEIN 5.3 g/dl (6.1-8.1)
[2019-05-05 07:08] LABS: PHOSPHORUS 3.2 mg/dl (2.5-4.9)
[2019-05-05] MEDS: hydrALAzine 20 MG INJ IV (07:49)
[2019-05-05 07:53] LABS: ANISOCYTOSIS 1+ (0-0); BAND NEUTROPHILS #M 1.6 10^3/ul (0.0-0.6); BAND NEUTROPHILS % (M) 7 % (0-4); LYMPHOCYTES #M 3.6 10^3/ul (0.8-2.9); LYMPHOCYTES % (M) 15 % (15-51); MONOCYTE #M 2.6 10^3/ul (0.3-0.9); MONOCYTES % (M) 11 % (0-11); MYELOCYTES #M 0.4 10^3/ul (0.0-0.0); MYELOCYTES % (M) 2 % (0-0); PLATELET ESTIMATE INCREASED; POLYCHROMASIA 1+ (0-0); PROMYELOCYTES #M 1.2 10^3/ul (0-0); PROMYELOCYTES % (M) 5 % (0-0); REACTIVE LYMPHOCYTES #M 0.9 10^3/ul (0.0-0.0); REACTIVE LYMPHOCYTES% (M) 4 % (0-0); SEG NEUT #M 13.9 10^3/ul (1.6-7.5); SEGMENTED NEUTROPHILS (M) % 56 % (39-77); SMUDGE%M 13 % (0-0); SPHEROCYTES 1+ (0-0)
[2019-05-05] MEDS: ASPIRIN 81 MG TAB GTB (08:59)
[2019-05-05] MEDS: DILTIAZEM 30 MG TAB GTB ×2 (08:59→20:57)
[2019-05-05] MEDS: POTASSIUM CHLORIDE 20 MEQ POWDER FOR ORAL SOLN GTB (09:00)
[2019-05-05] MEDS: ESCITALOPRAM 10 MG TAB GTB (09:00)
[2019-05-05] MEDS: METOLAZONE 5 MG TAB PO (09:00)
[2019-05-05] MEDS: ASCORBIC ACID 250 MG TAB GTB (09:00)
[2019-05-05] MEDS: SEVELAMER CARBONATE 0.8 GM PKT GTB ×3 (09:00→20:57)
[2019-05-05] MEDS: BALSAM PERU/CASTOR OIL 60 GM TUBE TOP (09:01)
[2019-05-05] MEDS: FOLIC ACID 1 MG TAB GTB (09:01)
[2019-05-05] MEDS: APIXABAN 5 MG TABLET PO ×2 (09:01→20:58)
[2019-05-05] MEDS: MUPIROCIN 2% 22 GM OINT TOP ×2 (09:01→20:59)
[2019-05-05] MEDS: SPIRONOLACTONE 25 MG TAB NGT (09:01)
[2019-05-05] MEDS: MEROPENEM 500MG/50 ML (PMX) 50 ML IVPB ×2 (09:02→20:58)
[2019-05-05] MEDS: CASPOFUNGIN 50 MG in SOD CHLORIDE 0.9% 250 ML IVPB (12:01)
[2019-05-05] MEDS: ACETAMINOPHEN 325 MG TAB PEG ×2 (12:34→18:21)
[2019-05-05] MEDS: [UNRECOGNIZED DRUG - OTHER] XX (19:00)
[2019-05-05] MEDS: DILTIAZEM XX (19:00)
[2019-05-05] MEDS: HYDRALAZINE XX (19:00)
[2019-05-05] MEDS: DUONEB XX (19:00)
[2019-05-05] MEDS: TOBRAMYCIN 150 MG in SOD CHLORIDE 0.9% 100 ML IVPB (22:07)
[2019-05-06] MEDS: ALBUTEROL HFA 8 GM INHALER INH ×4 (01:42→19:44)
[2019-05-06] MEDS: IPRATROPIUM (HFA) 12.9 GM INHALER INH ×4 (01:42→19:43)
[2019-05-06] MEDS: DILTIAZEM XX ×3 (03:00→18:40)
[2019-05-06] MEDS: [UNRECOGNIZED DRUG - OTHER] XX ×3 (03:00→18:40)
[2019-05-06] MEDS: HYDRALAZINE XX ×3 (03:00→18:40)
[2019-05-06] MEDS: DUONEB XX ×3 (03:00→18:40)
[2019-05-06 06:01] LABS: ABNORMAL IP MESSAGE 1; HEMATOCRIT 27.1 % (42.0-52.0); HEMOGLOBIN 8.4 g/dl (14.0-18.0); MEAN CORPUSCULAR HEMOGLOBIN 29.7 pg (29.0-33.0); MEAN CORPUSCULAR VOLUME 95.8 fl (82.0-101.0); MEAN PLATELET VOLUME 10.5 fl (7.4-10.4); NUCLEATED RED BLOOD CELLS% 0.1 /100WBC (0.0-0.0); PLATELET COUNT 593 10^3/UL (140-415); POSITIVE DIFF @See below; RED BLOOD COUNT 2.83 10^6/ul (4.70-6.10); RED CELL DISTRIBUTION WIDTH 17.3 % (11.5-14.5)
[2019-05-06 06:01] LABS: WHITE BLOOD COUNT 29.7 10^3/ul (4.8-10.8)
[2019-05-06 06:10] LABS: PHOSPHORUS 2.8 mg/dl (2.5-4.9)
[2019-05-06 06:10] LABS: MAGNESIUM 1.9 mg/dl (1.7-2.5)
[2019-05-06 06:11] LABS: ALANINE AMINOTRANSFERASE 32 IU/L (13-69); ALBUMIN 2.3 g/dl (3.3-4.9); ALBUMIN/GLOBULIN RATIO 0.74; ALKALINE PHOSPHATASE 347 IU/L (42-121); ANION GAP 6 (5-13); ASPARTATE AMINO TRANSFERASE 26 IU/L (15-46); BILIRUBIN,INDIRECT 0.3 mg/dl (0-1.1); BILIRUBIN,TOTAL 0.3 mg/dl (0.2-1.3); BLOOD UREA NITROGEN 54 mg/dl (7-20); CARBON DIOXIDE 27 mmol/L (21-31); CHLORIDE 103 mmol/L (97-110); CREATININE 1.46 mg/dl (0.61-1.24); GLUCOSE 117 mg/dl (70-220); SODIUM 136 mmol/L (135-144); TOTAL PROTEIN 5.4 g/dl (6.1-8.1)
[2019-05-06 06:12] LABS: ADD MAN DIFF? YES
[2019-05-06] MEDS: metroNIDAZOLE 500 MG TAB NGT ×2 (06:30→13:40)
[2019-05-06] MEDS: LANSOPRAZOLE 30 MG CAP GTB (06:30)
[2019-05-06 08:24] LABS: ANISOCYTOSIS 1+ (0-0); BAND NEUTROPHILS #M 1.1 10^3/ul (0.0-0.6); BAND NEUTROPHILS % (M) 4 % (0-4); LYMPHOCYTES % (M) 17 % (15-51); MONOCYTE #M 3.2 10^3/ul (0.3-0.9); MONOCYTES % (M) 11 % (0-11); MYELOCYTES #M 0.8 10^3/ul (0.0-0.0); MYELOCYTES % (M) 3 % (0-0); PLATELET ESTIMATE INCREASED; POIKILOCYTOSIS 1+ (0-0); POLYCHROMASIA 1+ (0-0); REACTIVE LYMPHOCYTES #M 1.4 10^3/ul (0.0-0.0); REACTIVE LYMPHOCYTES% (M) 5 % (0-0); SEG NEUT #M 18.1 10^3/ul (1.6-7.5); SEGMENTED NEUTROPHILS (M) % 60 % (39-77); SMUDGE%M 58 % (0-0)
[2019-05-06] MEDS: ESCITALOPRAM 10 MG TAB GTB (09:01)
[2019-05-06] MEDS: SPIRONOLACTONE 25 MG TAB NGT (09:01)
[2019-05-06] MEDS: ASCORBIC ACID 250 MG TAB GTB (09:02)
[2019-05-06] MEDS: DILTIAZEM 30 MG TAB GTB ×2 (09:02→21:19)
[2019-05-06] MEDS: METOLAZONE 5 MG TAB PO (09:02)
[2019-05-06] MEDS: SEVELAMER CARBONATE 0.8 GM PKT GTB ×3 (09:03→21:18)
[2019-05-06] MEDS: ASPIRIN 81 MG TAB GTB (09:03)
[2019-05-06] MEDS: FOLIC ACID 1 MG TAB GTB (09:03)
[2019-05-06] MEDS: POTASSIUM CHLORIDE 20 MEQ POWDER FOR ORAL SOLN GTB (09:03)
[2019-05-06] MEDS: MEROPENEM 500MG/50 ML (PMX) 50 ML IVPB (09:04)
[2019-05-06] MEDS: MUPIROCIN 2% 22 GM OINT TOP ×2 (09:04→21:18)
[2019-05-06] MEDS: BUMETANIDE 1 MG INJ IV (09:04)
[2019-05-06] MEDS: BALSAM PERU/CASTOR OIL 60 GM TUBE TOP (09:05)
[2019-05-06] MEDS: [UNRECOGNIZED DRUG - OTHER] XX ×2 (09:30→16:42)
[2019-05-06] MEDS: VANCOMYCIN 1.5 GM/NS 250 ML 250 ML IVPB (10:14)
[2019-05-06] MEDS: CASPOFUNGIN 50 MG in SOD CHLORIDE 0.9% 250 ML IVPB (13:38)
[2019-05-06] MEDS: PIPER-TAZO 2.25 GM (PMX) 50 ML IVPB ×2 (13:40→21:18)
[2019-05-07] MEDS: [UNRECOGNIZED DRUG - OTHER] XX ×3 (01:30→14:55)
[2019-05-07] MEDS: IPRATROPIUM (HFA) 12.9 GM INHALER INH ×4 (01:46→19:40)
[2019-05-07] MEDS: ALBUTEROL HFA 8 GM INHALER INH ×4 (01:46→19:40)
[2019-05-07] MEDS: DILTIAZEM XX ×3 (03:00→17:56)
[2019-05-07] MEDS: DUONEB XX ×3 (03:00→17:56)
[2019-05-07] MEDS: HYDRALAZINE XX ×3 (03:00→17:56)
[2019-05-07] MEDS: [UNRECOGNIZED DRUG - OTHER] XX ×3 (03:00→17:56)
[2019-05-07] MEDS: LANSOPRAZOLE 30 MG CAP GTB (05:38)
[2019-05-07] MEDS: PIPER-TAZO 2.25 GM (PMX) 50 ML IVPB ×3 (05:38→21:57)
[2019-05-07 05:59] LABS: WHITE BLOOD COUNT 33.1 10^3/ul (4.8-10.8)
[2019-05-07 05:59] LABS: ABNORMAL IP MESSAGE 1; HEMATOCRIT 28.5 % (42.0-52.0); HEMOGLOBIN 8.9 g/dl (14.0-18.0); MEAN CORPUSCULAR HEMOGLOBIN 30.1 pg (29.0-33.0); MEAN CORPUSCULAR HGB CONC 31.2 g/dl (32.0-37.0); MEAN CORPUSCULAR VOLUME 96.3 fl (82.0-101.0); MEAN PLATELET VOLUME 10.4 fl (7.4-10.4); NUCLEATED RED BLOOD CELLS% 0.1 /100WBC (0.0-0.0); PLATELET COUNT 647 10^3/UL (140-415); POSITIVE DIFF @See below; RED BLOOD COUNT 2.96 10^6/ul (4.70-6.10); RED CELL DISTRIBUTION WIDTH 17.1 % (11.5-14.5)
[2019-05-07 06:04] LABS: ADD MAN DIFF? YES
[2019-05-07 07:08] LABS: ANION GAP 4 (5-13); BLOOD UREA NITROGEN 55 mg/dl (7-20); CALCIUM 8.1 mg/dl (8.4-10.2); CARBON DIOXIDE 29 mmol/L (21-31); CHLORIDE 102 mmol/L (97-110); CREATININE 1.47 mg/dl (0.61-1.24); GLUCOSE 126 mg/dl (70-220); POTASSIUM 5.1 mmol/L (3.5-5.1); SODIUM 135 mmol/L (135-144)
[2019-05-07 07:58] LABS: ANISOCYTOSIS 1+ (0-0); BAND NEUTROPHILS #M 0.6 10^3/ul (0.0-0.6); BAND NEUTROPHILS % (M) 2 % (0-4); LYMPHOCYTES #M 3.6 10^3/ul (0.8-2.9); LYMPHOCYTES % (M) 11 % (15-51); METAMYELOCYTES #M 0.9 10^3/ul (0.0-0.0); METAMYELOCYTES %M 3 % (0-0); MONOCYTE #M 1.9 10^3/ul (0.3-0.9); MONOCYTES % (M) 6 % (0-11); MYELOCYTES #M 0.3 10^3/ul (0.0-0.0); MYELOCYTES % (M) 1 % (0-0); OVALOCYTES 1+ (0-0); PLASMA CELLS #M 0.3 10^3/ul (0.0-0.0); PLASMAC%(M) 1 % (0); PLATELET ESTIMATE INCREASED; POIKILOCYTOSIS 1+ (0-0); POLYCHROMASIA 3+ (0-0); REACTIVE LYMPHOCYTES #M 0.3 10^3/ul (0.0-0.0); REACTIVE LYMPHOCYTES% (M) 1 % (0-0); SEG NEUT #M 25.4 10^3/ul (1.6-7.5); SEGMENTED NEUTROPHILS (M) % 76 % (39-77); SMUDGE%M 6 % (0-0)
[2019-05-07] MEDS: MUPIROCIN 2% 22 GM OINT TOP ×2 (09:09→21:57)
[2019-05-07] MEDS: BALSAM PERU/CASTOR OIL 60 GM TUBE TOP (09:12)
[2019-05-07] MEDS: BUMETANIDE 1 MG INJ IV (09:12)
[2019-05-07] MEDS: SEVELAMER CARBONATE 0.8 GM PKT GTB ×3 (09:13→21:57)
[2019-05-07] MEDS: ASPIRIN 81 MG TAB GTB (09:13)
[2019-05-07] MEDS: ASCORBIC ACID 250 MG TAB GTB (09:13)
[2019-05-07] MEDS: DILTIAZEM 30 MG TAB GTB ×3 (09:13→21:57)
[2019-05-07] MEDS: POTASSIUM CHLORIDE 20 MEQ POWDER FOR ORAL SOLN GTB (09:14)
[2019-05-07] MEDS: ESCITALOPRAM 10 MG TAB GTB (09:15)
[2019-05-07] MEDS: SPIRONOLACTONE 25 MG TAB NGT (09:16)
[2019-05-07] MEDS: METOLAZONE 5 MG TAB PO (09:19)
[2019-05-07] MEDS: FOLIC ACID 1 MG TAB GTB (09:19)
[2019-05-07] MEDS: CASPOFUNGIN 50 MG in SOD CHLORIDE 0.9% 250 ML IVPB (12:46)
[2019-05-07 15:52] LABS: PROCALCITONIN 0.45 ng/mL (0.00-0.10)
[2019-05-08] MEDS: [UNRECOGNIZED DRUG - OTHER] XX ×3 (01:40→17:30)
[2019-05-08] MEDS: IPRATROPIUM (HFA) 12.9 GM INHALER INH ×4 (02:18→19:30)
[2019-05-08] MEDS: ALBUTEROL HFA 8 GM INHALER INH ×4 (02:18→19:30)
[2019-05-08] MEDS: DUONEB XX ×2 (03:00→11:00)
[2019-05-08] MEDS: DILTIAZEM XX ×2 (03:00→11:00)
[2019-05-08] MEDS: [UNRECOGNIZED DRUG - OTHER] XX ×2 (03:00→11:00)
[2019-05-08] MEDS: HYDRALAZINE XX ×2 (03:00→11:00)
[2019-05-08 05:49] LABS: WHITE BLOOD COUNT 36.8 10^3/ul (4.8-10.8)
[2019-05-08 05:49] LABS: ABNORMAL IP MESSAGE 1; HEMATOCRIT 26.5 % (42.0-52.0); HEMOGLOBIN 8.2 g/dl (14.0-18.0); MEAN CORPUSCULAR HGB CONC 30.9 g/dl (32.0-37.0); MEAN CORPUSCULAR VOLUME 97.1 fl (82.0-101.0); MEAN PLATELET VOLUME 10.4 fl (7.4-10.4); NUCLEATED RED BLOOD CELLS% 0.1 /100WBC (0.0-0.0); PLATELET COUNT 542 10^3/UL (140-415); POSITIVE DIFF @See below; RED BLOOD COUNT 2.73 10^6/ul (4.70-6.10); RED CELL DISTRIBUTION WIDTH 16.9 % (11.5-14.5)
[2019-05-08 05:51] LABS: ADD MAN DIFF? YES
[2019-05-08 06:04] LABS: MAGNESIUM 1.9 mg/dl (1.7-2.5)
[2019-05-08 06:04] LABS: PHOSPHORUS 2.8 mg/dl (2.5-4.9)
[2019-05-08 06:12] LABS: ANION GAP 4 (5-13); BLOOD UREA NITROGEN 58 mg/dl (7-20); CALCIUM 7.8 mg/dl (8.4-10.2); CARBON DIOXIDE 28 mmol/L (21-31); CHLORIDE 104 mmol/L (97-110); GLUCOSE 110 mg/dl (70-220); POTASSIUM 4.8 mmol/L (3.5-5.1); SODIUM 136 mmol/L (135-144)
[2019-05-08] MEDS: ACETAMINOPHEN 325 MG TAB PEG ×2 (06:53→22:47)
[2019-05-08] MEDS: PIPER-TAZO 2.25 GM (PMX) 50 ML IVPB ×3 (06:53→22:04)
[2019-05-08] MEDS: LANSOPRAZOLE 30 MG CAP GTB (06:53)
[2019-05-08 07:54] LABS: ANISOCYTOSIS 1+ (0-0); BAND NEUTROPHILS #M 1.4 10^3/ul (0.0-0.6); BAND NEUTROPHILS % (M) 4 % (0-4); BURR CELLS 1+ (0-0); GIANT THROMBO% (M) 1 % (0-0); LYMPHOCYTES #M 2.9 10^3/ul (0.8-2.9); LYMPHOCYTES % (M) 8 % (15-51); METAMYELOCYTES #M 1.4 10^3/ul (0.0-0.0); METAMYELOCYTES %M 4 % (0-0); MONOCYTE #M 3.6 10^3/ul (0.3-0.9); MONOCYTES % (M) 10 % (0-11); MYELOCYTES #M 0.3 10^3/ul (0.0-0.0); MYELOCYTES % (M) 1 % (0-0); OVALOCYTES 1+ (0-0); PLATELET ESTIMATE INCREASED; POLYCHROMASIA 3+ (0-0); PROMYELOCYTES #M 0.3 10^3/ul (0-0); PROMYELOCYTES % (M) 1 % (0-0); SEGMENTED NEUTROPHILS (M) % 72 % (39-77); SMUDGE%M 6 % (0-0)
[2019-05-08] MEDS: ESCITALOPRAM 10 MG TAB GTB (10:10)
[2019-05-08] MEDS: DILTIAZEM 30 MG TAB GTB ×3 (10:11→22:04)
[2019-05-08] MEDS: METOLAZONE 5 MG TAB PO (10:11)
[2019-05-08] MEDS: SPIRONOLACTONE 25 MG TAB NGT (10:11)
[2019-05-08] MEDS: ASPIRIN 81 MG TAB GTB (10:12)
[2019-05-08] MEDS: FOLIC ACID 1 MG TAB GTB (10:12)
[2019-05-08] MEDS: BALSAM PERU/CASTOR OIL 60 GM TUBE TOP (10:12)
[2019-05-08] MEDS: SEVELAMER CARBONATE 0.8 GM PKT GTB ×3 (10:12→22:38)
[2019-05-08] MEDS: ASCORBIC ACID 250 MG TAB GTB (10:12)
[2019-05-08] MEDS: BUMETANIDE 1 MG INJ IV (10:13)
[2019-05-08] MEDS: MUPIROCIN 2% 22 GM OINT TOP ×2 (10:14→21:00)
[2019-05-08] MEDS: VANCOMYCIN 1.5 GM/NS 250 ML 250 ML IVPB (10:25)
[2019-05-08 10:55] LABS: VANCOMYCIN,TROUGH 22.2 ug/ml (10.0-20.0)
[2019-05-08] MEDS: CASPOFUNGIN 50 MG in SOD CHLORIDE 0.9% 250 ML IVPB (13:00)
[2019-05-08 13:59] LABS: INR 1.21; PROTIME 15.4 Sec (11.9-14.9); PT RATIO 1.2
[2019-05-08 14:00] LABS: PARTIAL THROMBOPLASTIN TIME 32.6 Sec (23.0-35.0)
[2019-05-08 14:33] LABS: ADD UMIC YES; UR ASCORBIC ACID 20 mg/dL (NEGATIVE); UR BILIRUBIN (Dip) NEGATIVE (NEGATIVE); UR BLOOD (Dip) NEGATIVE (NEGATIVE); UR BUDDING YEAST FEW /HPF (NONE SEEN); UR CALCIUM OXALATE CRYSTAL FEW /HPF (NONE SEEN); UR CLARITY CLOUDY (CLEAR); UR COLOR YELLOW (YELLOW); UR GLUCOSE (Dip) NEGATIVE (NEGATIVE); UR KETONES (Dip) NEGATIVE (NEGATIVE); UR LEUKOCYTE ESTERASE (Dip) 2+ Leu/ul (NEGATIVE); UR NITRITE (Dip) NEGATIVE (NEGATIVE); UR RBC 2 /HPF (0-5); UR SPECIFIC GRAVITY (Dip) 1.012 (1.003-1.030); UR TOTAL PROTEIN (Dip) NEGATIVE (NEGATIVE); UR UROBILINOGEN (Dip) NEGATIVE (NEGATIVE); UR WBC 75 /HPF (0-5)
[2019-05-08] MEDS: LIDOCAINE 1% (MPF) 5 ML VIAL (15:40)
[2019-05-08] MEDS: VANCOMYCIN 1 GM 250 ML IVPB (22:38)
[2019-05-09] MEDS: ALBUTEROL HFA 8 GM INHALER INH ×4 (01:09→20:50)
[2019-05-09] MEDS: IPRATROPIUM (HFA) 12.9 GM INHALER INH ×4 (01:09→20:50)
[2019-05-09] MEDS: [UNRECOGNIZED DRUG - OTHER] XX ×3 (01:30→16:36)
[2019-05-09] MEDS: LANSOPRAZOLE 30 MG CAP GTB (05:50)
[2019-05-09] MEDS: PIPER-TAZO 2.25 GM (PMX) 50 ML IVPB ×3 (05:50→21:32)
[2019-05-09 05:56] LABS: WHITE BLOOD COUNT 31.2 10^3/ul (4.8-10.8)
[2019-05-09 05:56] LABS: ABNORMAL IP MESSAGE 1; HEMATOCRIT 23.8 % (42.0-52.0); HEMOGLOBIN 7.3 g/dl (14.0-18.0); MEAN CORPUSCULAR HEMOGLOBIN 29.8 pg (29.0-33.0); MEAN CORPUSCULAR HGB CONC 30.7 g/dl (32.0-37.0); MEAN CORPUSCULAR VOLUME 97.1 fl (82.0-101.0); MEAN PLATELET VOLUME 10.8 fl (7.4-10.4); NUCLEATED RED BLOOD CELLS% 0.1 /100WBC (0.0-0.0); PLATELET COUNT 460 10^3/UL (140-415); POSITIVE DIFF @See below; RED BLOOD COUNT 2.45 10^6/ul (4.70-6.10); RED CELL DISTRIBUTION WIDTH 16.9 % (11.5-14.5)
[2019-05-09 06:10] LABS: PHOSPHORUS 3.3 mg/dl (2.5-4.9)
[2019-05-09 06:18] LABS: ADD MAN DIFF? YES; ANION GAP 5 (5-13); BLOOD UREA NITROGEN 62 mg/dl (7-20); CALCIUM 7.6 mg/dl (8.4-10.2); CARBON DIOXIDE 29 mmol/L (21-31); CHLORIDE 104 mmol/L (97-110); CREATININE 1.58 mg/dl (0.61-1.24); GLUCOSE 113 mg/dl (70-220); SODIUM 138 mmol/L (135-144)
[2019-05-09 06:43] LABS: POTASSIUM 4.4 mmol/L (3.5-5.1)
[2019-05-09] MEDS: SEVELAMER CARBONATE 0.8 GM PKT GTB ×3 (08:52→21:32)
[2019-05-09] MEDS: SPIRONOLACTONE 25 MG TAB NGT (08:53)
[2019-05-09] MEDS: FOLIC ACID 1 MG TAB GTB (08:53)
[2019-05-09] MEDS: METOLAZONE 5 MG TAB PO (08:53)
[2019-05-09] MEDS: ESCITALOPRAM 10 MG TAB GTB (08:53)
[2019-05-09] MEDS: ASCORBIC ACID 250 MG TAB GTB (08:53)
[2019-05-09] MEDS: BUMETANIDE 1 MG INJ IV (08:53)
[2019-05-09] MEDS: BALSAM PERU/CASTOR OIL 60 GM TUBE TOP (08:54)
[2019-05-09] MEDS: ASPIRIN 81 MG TAB GTB (08:54)
[2019-05-09] MEDS: DILTIAZEM 30 MG TAB GTB ×3 (08:54→21:33)
[2019-05-09] MEDS: MUPIROCIN 2% 22 GM OINT TOP ×2 (08:56→21:33)
[2019-05-09 09:51] LABS: ANISOCYTOSIS 1+ (0-0); BAND NEUTROPHILS #M 1.5 10^3/ul (0.0-0.6); BAND NEUTROPHILS % (M) 5 % (0-4); GIANT THROMBO% (M) 2 % (0-0); LYMPHOCYTES #M 3.1 10^3/ul (0.8-2.9); LYMPHOCYTES % (M) 10 % (15-51); METAMYELOCYTES #M 0.3 10^3/ul (0.0-0.0); METAMYELOCYTES %M 1 % (0-0); MICROCYTOSIS 1+ (0-0); MONOCYTE #M 1.5 10^3/ul (0.3-0.9); MONOCYTES % (M) 5 % (0-11); MYELOCYTES #M 0.3 10^3/ul (0.0-0.0); MYELOCYTES % (M) 1 % (0-0); PLATELET ESTIMATE NORMAL; POIKILOCYTOSIS 1+ (0-0); POLYCHROMASIA 1+ (0-0); PROMYELOCYTES #M 0.3 10^3/ul (0-0); PROMYELOCYTES % (M) 1 % (0-0); SEG NEUT #M 24.5 10^3/ul (1.6-7.5); SEGMENTED NEUTROPHILS (M) % 77 % (39-77); SMUDGE%M 6 % (0-0)
[2019-05-09] MEDS: CASPOFUNGIN 50 MG in SOD CHLORIDE 0.9% 250 ML IVPB (12:29)
[2019-05-09] MEDS: HYDRALAZINE XX ×4 (12:42→17:28)
[2019-05-09] MEDS: DUONEB XX ×4 (12:42→17:28)
[2019-05-09] MEDS: [UNRECOGNIZED DRUG - OTHER] XX ×4 (12:42→17:28)
[2019-05-09] MEDS: DILTIAZEM XX ×4 (12:42→17:28)
[2019-05-09] MEDS: ACETAMINOPHEN 325 MG TAB PEG (12:58)
[2019-05-09] MEDS: DIPHENHYDRAMINE 25 MG CAP PO (12:58)
[2019-05-09 13:01] LABS: IMMEDIATE SPIN CROSSMATCH 1 2
[2019-05-09] MEDS: SOD CHLORIDE 0.9% 250 ML IV* (13:17)
[2019-05-10] MEDS: [UNRECOGNIZED DRUG - OTHER] XX ×2 (01:30→09:02)
[2019-05-10] MEDS: IPRATROPIUM (HFA) 12.9 GM INHALER INH ×4 (03:13→20:40)
[2019-05-10] MEDS: ALBUTEROL HFA 8 GM INHALER INH ×4 (03:13→20:40)
[2019-05-10] MEDS: PIPER-TAZO 2.25 GM (PMX) 50 ML IVPB ×3 (06:07→21:18)
[2019-05-10] MEDS: LANSOPRAZOLE (SOLTAB) 30 MG TAB GTB (06:08)
[2019-05-10 06:58] LABS: WHITE BLOOD COUNT 27.9 10^3/ul (4.8-10.8)
[2019-05-10 06:58] LABS: ABNORMAL IP MESSAGE 1; HEMATOCRIT 34.1 % (42.0-52.0); HEMOGLOBIN 10.7 g/dl (14.0-18.0); MEAN CORPUSCULAR HEMOGLOBIN 29.2 pg (29.0-33.0); MEAN CORPUSCULAR HGB CONC 31.4 g/dl (32.0-37.0); MEAN CORPUSCULAR VOLUME 93.2 fl (82.0-101.0); MEAN PLATELET VOLUME 10.8 fl (7.4-10.4); NUCLEATED RED BLOOD CELLS% 0.1 /100WBC (0.0-0.0); PLATELET COUNT 439 10^3/UL (140-415); POSITIVE DIFF @See below; RED BLOOD COUNT 3.66 10^6/ul (4.70-6.10); RED CELL DISTRIBUTION WIDTH 16.8 % (11.5-14.5)
[2019-05-10 07:04] LABS: PHOSPHORUS 3.6 mg/dl (2.5-4.9)
[2019-05-10 07:04] LABS: MAGNESIUM 1.9 mg/dl (1.7-2.5)
[2019-05-10 07:20] LABS: ADD MAN DIFF? YES; ALANINE AMINOTRANSFERASE 24 IU/L (13-69); ALBUMIN 2.3 g/dl (3.3-4.9); ALBUMIN/GLOBULIN RATIO 0.76; ALKALINE PHOSPHATASE 404 IU/L (42-121); ANION GAP 6 (5-13); ASPARTATE AMINO TRANSFERASE 34 IU/L (15-46); BILIRUBIN,INDIRECT 0.2 mg/dl (0-1.1); BILIRUBIN,TOTAL 0.2 mg/dl (0.2-1.3); BLOOD UREA NITROGEN 63 mg/dl (7-20); CARBON DIOXIDE 29 mmol/L (21-31); CHLORIDE 104 mmol/L (97-110); CREATININE 1.63 mg/dl (0.61-1.24); GLUCOSE 101 mg/dl (70-220); POTASSIUM 4.7 mmol/L (3.5-5.1); SODIUM 139 mmol/L (135-144); TOTAL PROTEIN 5.3 g/dl (6.1-8.1)
[2019-05-10] MEDS: [UNRECOGNIZED DRUG - OTHER] XX ×2 (08:58→10:50)
[2019-05-10] MEDS: DUONEB XX ×2 (08:58→10:50)
[2019-05-10] MEDS: DILTIAZEM XX ×2 (08:58→10:50)
[2019-05-10] MEDS: HYDRALAZINE XX ×2 (08:58→10:50)
[2019-05-10] MEDS: BUMETANIDE 1 MG INJ IV (08:59)
[2019-05-10] MEDS: ASCORBIC ACID 250 MG TAB GTB (08:59)
[2019-05-10] MEDS: SEVELAMER CARBONATE 0.8 GM PKT GTB ×3 (08:59→21:17)
[2019-05-10] MEDS: FOLIC ACID 1 MG TAB GTB (08:59)
[2019-05-10] MEDS: ASPIRIN 81 MG TAB GTB (08:59)
[2019-05-10] MEDS: ESCITALOPRAM 10 MG TAB GTB (08:59)
[2019-05-10] MEDS: SPIRONOLACTONE 25 MG TAB NGT (08:59)
[2019-05-10] MEDS: MUPIROCIN 2% 22 GM OINT TOP ×2 (09:00→21:18)
[2019-05-10] MEDS: METOLAZONE 5 MG TAB PO (09:01)
[2019-05-10] MEDS: DILTIAZEM 30 MG TAB GTB ×3 (09:01→21:18)
[2019-05-10] MEDS: BALSAM PERU/CASTOR OIL 60 GM TUBE TOP (09:02)
[2019-05-10 10:24] LABS: ANISOCYTOSIS 1+ (0-0); BAND NEUTROPHILS #M 2.7 10^3/ul (0.0-0.6); BAND NEUTROPHILS % (M) 10 % (0-4); LYMPHOCYTES #M 2.2 10^3/ul (0.8-2.9); LYMPHOCYTES % (M) 8 % (15-51); METAMYELOCYTES #M 0.8 10^3/ul (0.0-0.0); METAMYELOCYTES %M 3 % (0-0); MICROCYTOSIS 1+ (0-0); MONOCYTE #M 2.7 10^3/ul (0.3-0.9); MONOCYTES % (M) 10 % (0-11); MYELOCYTES #M 0.5 10^3/ul (0.0-0.0); MYELOCYTES % (M) 2 % (0-0); PLATELET ESTIMATE NORMAL; POIKILOCYTOSIS 1+ (0-0); POLYCHROMASIA 3+ (0-0); SEG NEUT #M 19.4 10^3/ul (1.6-7.5); SEGMENTED NEUTROPHILS (M) % 67 % (39-77); SMUDGE%M 3 % (0-0)
[2019-05-10] MEDS: CASPOFUNGIN 50 MG in SOD CHLORIDE 0.9% 250 ML IVPB (12:06)
[2019-05-10] MEDS: VANCOMYCIN 1 GM 250 ML IVPB (22:48)
[2019-05-11] MEDS: IPRATROPIUM (HFA) 12.9 GM INHALER INH ×4 (03:01→19:30)
[2019-05-11] MEDS: ALBUTEROL HFA 8 GM INHALER INH ×4 (03:01→19:30)
[2019-05-11 05:55] LABS: WHITE BLOOD COUNT 27.1 10^3/ul (4.8-10.8)
[2019-05-11 05:55] LABS: ABNORMAL IP MESSAGE 1; HEMOGLOBIN 11.3 g/dl (14.0-18.0); MEAN CORPUSCULAR HGB CONC 31.4 g/dl (32.0-37.0); MEAN CORPUSCULAR VOLUME 92.3 fl (82.0-101.0); MEAN PLATELET VOLUME 10.4 fl (7.4-10.4); PLATELET COUNT 404 10^3/UL (140-415); POSITIVE DIFF @See below
[2019-05-11 06:12] LABS: ADD MAN DIFF? YES
[2019-05-11 06:22] LABS: MAGNESIUM 1.9 mg/dl (1.7-2.5)
[2019-05-11 06:22] LABS: PHOSPHORUS 3.5 mg/dl (2.5-4.9)
[2019-05-11 06:27] LABS: ANION GAP 4 (5-13); BLOOD UREA NITROGEN 65 mg/dl (7-20); CARBON DIOXIDE 29 mmol/L (21-31); CHLORIDE 105 mmol/L (97-110); CREATININE 1.61 mg/dl (0.61-1.24); GLUCOSE 105 mg/dl (70-220); POTASSIUM 4.7 mmol/L (3.5-5.1); SODIUM 138 mmol/L (135-144)
[2019-05-11] MEDS: PIPER-TAZO 2.25 GM (PMX) 50 ML IVPB ×3 (07:11→22:01)
[2019-05-11] MEDS: LANSOPRAZOLE (SOLTAB) 30 MG TAB GTB (07:11)
[2019-05-11 09:33] LABS: ANISOCYTOSIS 1+ (0-0); BAND NEUTROPHILS #M 0.5 10^3/ul (0.0-0.6); BAND NEUTROPHILS % (M) 2 % (0-4); EOSINOPHILS % (M) 1 % (0-7); LYMPHOCYTES % (M) 15 % (15-51); METAMYELOCYTES #M 0.5 10^3/ul (0.0-0.0); METAMYELOCYTES %M 2 % (0-0); MICROCYTOSIS 1+ (0-0); MONOCYTE #M 2.7 10^3/ul (0.3-0.9); MONOCYTES % (M) 10 % (0-11); PLATELET ESTIMATE NORMAL; POLYCHROMASIA 1+ (0-0); REACTIVE LYMPHOCYTES #M 0.2 10^3/ul (0.0-0.0); REACTIVE LYMPHOCYTES% (M) 1 % (0-0); SEG NEUT #M 18.8 10^3/ul (1.6-7.5); SEGMENTED NEUTROPHILS (M) % 69 % (39-77); SMUDGE%M 1 % (0-0)
[2019-05-11] MEDS: SEVELAMER CARBONATE 0.8 GM PKT GTB ×3 (09:35→22:01)
[2019-05-11] MEDS: ASPIRIN 81 MG TAB GTB (09:36)
[2019-05-11] MEDS: ASCORBIC ACID 250 MG TAB GTB (09:36)
[2019-05-11] MEDS: SPIRONOLACTONE 25 MG TAB NGT (09:36)
[2019-05-11] MEDS: DILTIAZEM 30 MG TAB GTB ×3 (09:36→22:01)
[2019-05-11] MEDS: FOLIC ACID 1 MG TAB GTB (09:36)
[2019-05-11] MEDS: ESCITALOPRAM 10 MG TAB GTB (09:37)
[2019-05-11] MEDS: BALSAM PERU/CASTOR OIL 60 GM TUBE TOP (09:37)
[2019-05-11] MEDS: MUPIROCIN 2% 22 GM OINT TOP ×2 (09:37→22:02)
[2019-05-11] MEDS: CASPOFUNGIN 50 MG in SOD CHLORIDE 0.9% 250 ML IVPB ×2 (12:00→15:26)
[2019-05-11 17:21] LABS: PROCALCITONIN 0.28 ng/mL (0.00-0.10)
[2019-05-12] MEDS: ALBUTEROL HFA 8 GM INHALER INH ×4 (01:37→19:45)
[2019-05-12] MEDS: IPRATROPIUM (HFA) 12.9 GM INHALER INH ×4 (01:37→19:45)
[2019-05-12] MEDS: PIPER-TAZO 2.25 GM (PMX) 50 ML IVPB ×3 (06:01→22:04)
[2019-05-12] MEDS: LANSOPRAZOLE (SOLTAB) 30 MG TAB GTB (06:01)
[2019-05-12 06:49] LABS: ADD MAN DIFF? NO
[2019-05-12 06:53] LABS: ABNORMAL IP MESSAGE 1; BASOPHIL # 0.1 10^3/ul (0.0-0.1); BASOPHILS % 0.5 % (0.0-2.0); EOSINOPHILS % 0.1 % (0.0-7.0); HEMATOCRIT 34.5 % (42.0-52.0); HEMOGLOBIN 10.7 g/dl (14.0-18.0); LYMPHOCYTES # 4.1 10^3/ul (0.8-2.9); LYMPHOCYTES % 16.9 % (15.0-51.0); MEAN CORPUSCULAR VOLUME 93.5 fl (82.0-101.0); MEAN PLATELET VOLUME 10.7 fl (7.4-10.4); MONOCYTE # 2.2 10^3/ul (0.3-0.9); MONOCYTES % 9.3 % (0.0-11.0); NEUTROPHIL # 16.6 10^3/ul (1.6-7.5); NEUTROPHILS % 69.3 % (39.0-77.0); PLATELET COUNT 357 10^3/UL (140-415); POSITIVE DIFF @See below; RED BLOOD COUNT 3.69 10^6/ul (4.70-6.10); RED CELL DISTRIBUTION WIDTH 16.9 % (11.5-14.5)
[2019-05-12 07:27] LABS: ANION GAP 4 (5-13); BLOOD UREA NITROGEN 63 mg/dl (7-20); CALCIUM 8.1 mg/dl (8.4-10.2); CARBON DIOXIDE 29 mmol/L (21-31); CHLORIDE 105 mmol/L (97-110); CREATININE 1.58 mg/dl (0.61-1.24); GLUCOSE 89 mg/dl (70-220); POTASSIUM 5.1 mmol/L (3.5-5.1); SODIUM 138 mmol/L (135-144)
[2019-05-12 07:43] LABS: MAGNESIUM 1.8 mg/dl (1.7-2.5)
[2019-05-12 08:13] LABS: PHOSPHORUS 3.9 mg/dl (2.5-4.9)
[2019-05-12] MEDS: FOLIC ACID 1 MG TAB GTB (08:19)
[2019-05-12] MEDS: SPIRONOLACTONE 25 MG TAB NGT (08:20)
[2019-05-12] MEDS: ASCORBIC ACID 250 MG TAB GTB (08:20)
[2019-05-12] MEDS: ESCITALOPRAM 10 MG TAB GTB (08:20)
[2019-05-12] MEDS: MUPIROCIN 2% 22 GM OINT TOP ×2 (08:20→22:06)
[2019-05-12] MEDS: BALSAM PERU/CASTOR OIL 60 GM TUBE TOP (08:20)
[2019-05-12] MEDS: SEVELAMER CARBONATE 0.8 GM PKT GTB ×3 (08:20→22:05)
[2019-05-12] MEDS: DILTIAZEM 30 MG TAB GTB ×3 (08:20→22:06)
[2019-05-12] MEDS: ASPIRIN 81 MG TAB GTB (08:20)
[2019-05-12] MEDS: CASPOFUNGIN 50 MG in SOD CHLORIDE 0.9% 250 ML IVPB (12:22)
[2019-05-12] MEDS: BUMETANIDE 1 MG INJ IV (15:23)
[2019-05-12 21:18] LABS: VANCOMYCIN,TROUGH 22.9 ug/ml (10.0-20.0)
[2019-05-13] MEDS: ALBUTEROL HFA 8 GM INHALER INH ×4 (01:16→20:04)
[2019-05-13] MEDS: IPRATROPIUM (HFA) 12.9 GM INHALER INH ×4 (01:16→20:04)
[2019-05-13] MEDS: PIPER-TAZO 2.25 GM (PMX) 50 ML IVPB ×3 (05:23→21:09)
[2019-05-13] MEDS: LANSOPRAZOLE (SOLTAB) 30 MG TAB GTB (05:59)
[2019-05-13 06:14] LABS: ADD MAN DIFF? NO
[2019-05-13 06:23] LABS: ABNORMAL IP MESSAGE 1; BASOPHIL # 0.1 10^3/ul (0.0-0.1); BASOPHILS % 0.6 % (0.0-2.0); EOSINOPHILS # 0.1 10^3/ul (0.0-0.5); EOSINOPHILS % 0.4 % (0.0-7.0); HEMATOCRIT 36.1 % (42.0-52.0); HEMOGLOBIN 11.2 g/dl (14.0-18.0); LYMPHOCYTES # 4.7 10^3/ul (0.8-2.9); LYMPHOCYTES % 19.1 % (15.0-51.0); MEAN CORPUSCULAR HEMOGLOBIN 29.4 pg (29.0-33.0); MEAN CORPUSCULAR VOLUME 94.8 fl (82.0-101.0); MEAN PLATELET VOLUME 10.6 fl (7.4-10.4); MONOCYTE # 2.1 10^3/ul (0.3-0.9); MONOCYTES % 8.3 % (0.0-11.0); NEUTROPHIL # 17.1 10^3/ul (1.6-7.5); NEUTROPHILS % 68.9 % (39.0-77.0); PLATELET COUNT 374 10^3/UL (140-415); POSITIVE DIFF @See below; RED BLOOD COUNT 3.81 10^6/ul (4.70-6.10); RED CELL DISTRIBUTION WIDTH 16.6 % (11.5-14.5)
[2019-05-13 06:23] LABS: WHITE BLOOD COUNT 24.8 10^3/ul (4.8-10.8)
[2019-05-13 06:48] LABS: ANION GAP 8 (5-13); BLOOD UREA NITROGEN 63 mg/dl (7-20); CALCIUM 7.9 mg/dl (8.4-10.2); CARBON DIOXIDE 26 mmol/L (21-31); CHLORIDE 103 mmol/L (97-110); CREATININE 1.58 mg/dl (0.61-1.24); GLUCOSE 77 mg/dl (70-220); POTASSIUM 5.3 mmol/L (3.5-5.1); SODIUM 137 mmol/L (135-144)
[2019-05-13 06:49] LABS: MAGNESIUM 1.8 mg/dl (1.7-2.5)
[2019-05-13 06:49] LABS: PHOSPHORUS 4.4 mg/dl (2.5-4.9)
[2019-05-13] MEDS: ASCORBIC ACID 250 MG TAB GTB (08:21)
[2019-05-13] MEDS: DILTIAZEM 30 MG TAB GTB ×3 (08:21→20:29)
[2019-05-13] MEDS: FOLIC ACID 1 MG TAB GTB (08:21)
[2019-05-13] MEDS: ESCITALOPRAM 10 MG TAB GTB (08:21)
[2019-05-13] MEDS: ASPIRIN 81 MG TAB GTB (08:21)
[2019-05-13] MEDS: BALSAM PERU/CASTOR OIL 60 GM TUBE TOP (08:22)
[2019-05-13] MEDS: MUPIROCIN 2% 22 GM OINT TOP ×2 (08:22→20:30)
[2019-05-13] MEDS: SEVELAMER CARBONATE 0.8 GM PKT GTB ×3 (08:22→20:28)
[2019-05-13 09:29] LABS: ANISOCYTOSIS 1+ (0-0); BAND NEUTROPHILS #M 1.9 10^3/ul (0.0-0.6); BAND NEUTROPHILS % (M) 8 % (0-4); BURR CELLS 1+ (0-0); EOSINOPHILS % (M) 1 % (0-7); LYMPHOCYTES #M 2.7 10^3/ul (0.8-2.9); LYMPHOCYTES % (M) 11 % (15-51); MONOCYTE #M 1.2 10^3/ul (0.3-0.9); MONOCYTES % (M) 5 % (0-11); PLATELET ESTIMATE NORMAL; POIKILOCYTOSIS 2+ (0-0); POLYCHROMASIA 1+ (0-0); REACTIVE LYMPHOCYTES #M 1.2 10^3/ul (0.0-0.0); REACTIVE LYMPHOCYTES% (M) 5 % (0-0); SEG NEUT #M 17.8 10^3/ul (1.6-7.5); SEGMENTED NEUTROPHILS (M) % 70 % (39-77); SMUDGE%M 19 % (0-0)
[2019-05-13] MEDS: CASPOFUNGIN 50 MG in SOD CHLORIDE 0.9% 250 ML IVPB (12:10)
[2019-05-13] MEDS: hydrALAzine 20 MG INJ IV (15:08)
[2019-05-13] MEDS ORDERED: VANCOMYCIN 1 GM 250 ML IVPB (21:00)
[2019-05-14] MEDS ORDERED: VANCOMYCIN 750 MG (PMX) 250 ML IVPB (11:00)
== END 2019-05-13 22:10 | disposition short-term general hospital (02) | DRG 4 ==
LOC: ICU 04-29 08:57 → 6WM 05-03 15:20 → ICU 17:18
PROC: 5A1955Z Respiratory Ventilation, Greater than 96 Consecutive Hours (ICD-10-PCS; principal; 2019-04-07 11:40)
PROC: 0B110F4 Bypass Trachea to Cutaneous with Tracheostomy Device, Open Approach (ICD-10-PCS; 2019-04-07 11:40)
PROC: 0BH17EZ Insertion of Endotracheal Airway into Trachea, Via Natural or Artificial Opening (ICD-10-PCS; 2019-04-07 11:40)
PROC: 0DH63UZ Insertion of Feeding Device into Stomach, Percutaneous Approach (ICD-10-PCS; 2019-04-07 11:40)
PROC: 02HV33Z Insertion of Infusion Device into Superior Vena Cava, Percutaneous Approach (ICD-10-PCS; 2019-04-07 11:40)
PROC: 0W9B30Z Drainage of Left Pleural Cavity with Drainage Device, Percutaneous Approach (ICD-10-PCS; 2019-04-07 11:40)
DX: J96.01 Acute respiratory failure with hypoxia (principal); J69.0 Pneumonitis due to inhalation of food and vomit; G92 Toxic encephalopathy; A41.9 Sepsis, unspecified organism; I63.9 Cerebral infarction, unspecified; N17.9 Acute kidney failure, unspecified; E87.0 Hyperosmolality and hypernatremia; E44.0 Moderate protein-calorie malnutrition; J44.0 Chronic obstructive pulmonary disease with (acute) lower respiratory infection; J44.1 Chronic obstructive pulmonary disease with (acute) exacerbation; I13.0 Hypertensive heart and chronic kidney disease with heart failure and stage 1 through stage 4 chronic kidney disease, or unspecified chronic kidney disease; E87.4 Mixed disorder of acid-base balance; G72.81 Critical illness myopathy; N39.0 Urinary tract infection, site not specified; R64 Cachexia; I50.30 Unspecified diastolic (congestive) heart failure; I48.2 Chronic atrial fibrillation; J90 Pleural effusion, not elsewhere classified; I27.20 Pulmonary hypertension, unspecified; R33.9 Retention of urine, unspecified; N14.1 Nephropathy induced by other drugs, medicaments and biological substances; T50.2X5A Adverse effect of carbonic-anhydrase inhibitors, benzothiadiazides and other diuretics, initial encounter; E11.22 Type 2 diabetes mellitus with diabetic chronic kidney disease; D69.6 Thrombocytopenia, unspecified; N18.9 Chronic kidney disease, unspecified; K76.0 Fatty (change of) liver, not elsewhere classified; E87.5 Hyperkalemia; R13.10 Dysphagia, unspecified; F41.8 Other specified anxiety disorders; F41.9 Anxiety disorder, unspecified; J96.02 Acute respiratory failure with hypercapnia; E11.42 Type 2 diabetes mellitus with diabetic polyneuropathy; E88.09 Other disorders of plasma-protein metabolism, not elsewhere classified; L89.90 Pressure ulcer of unspecified site, unspecified stage; K29.80 Duodenitis without bleeding; D63.8 Anemia in other chronic diseases classified elsewhere; G89.29 Other chronic pain; M54.5 Low back pain; Z87.891 Personal history of nicotine dependence; Z68.32 Body mass index [BMI] 32.0-32.9, adult; Z79.01 Long term (current) use of anticoagulants
CPT/HCPCS: 31500; 36430; 36569; 36600; 70450; 70551; 71045; 71250; 74176; 76705; 76937; 76942; 80048; 80053; 80076; 80162; 80200; 80202; 81001; 81003; 82140; 82270; 82607; 82728; 82746; 82803; 82962; 83540; 83605; 83690; 83735; 83880; 84100; 84145; 84155; 84165; 84300; 84439; 84443; 85014; 85018; 85025; 85045; 85610; 85730; 86703; 86850; 86900; 86901; 86920; 87040-91; 87045; 87070; 87075; 87081; 87086; 89190; 89220; 94002; 94003; 94640; 94660; 94664; 94770; 95819